=== PATIENT | female | born 1965 | race Caucasian/White ===

== ENCOUNTER 2016-09-08 11:19 | Inpatient (IN) | payer OTHER ==
[2016-09-08] VITALS (8 sets, daily range): BP systolic 166–197; BP diastolic 62–91; PULSE 56–90; RESP 16–22; TEMP 97.5–98.5; O2SAT 94–100
[~2016-09-08 11:19] MED LIST: GABA800T PO; MORP1TAB25 PO; [UNRECOGNIZED DRUG - REMARK]; blood pressure med PO
[2016-09-08] MEDS ORDERED: METO50TA PO (11:46)
[2016-09-08] MEDS ORDERED: PROM25TA5 PO (11:46)
[2016-09-08] MEDS ORDERED: SODIUM CHLOR 0.9% 1000 ML INJ 1,000 ML IV SCH (11:46)
[2016-09-08] MEDS ORDERED: AMLO10 PO (11:46)
[2016-09-08] MEDS ORDERED: MORP1TAB25 PO (11:46)
[2016-09-08] MEDS ORDERED: CLON0.1T PO (11:46)
[2016-09-08] MEDS ORDERED: ALPR0.25 PO (11:46)
--- NOTE | 2016-09-08 11:54 | PD ---
HPI Chief Complaint: Pain: Acute or Chronic Time Seen by Provider: 11:40 Travel History International Travel<30 days: No Contact w/Intl Traveler<30days: No Traveled to known affect area: No History of Present Illness HPI This is a 51-year-old female with history of known prostatic cervical cancer with bilateral nephrostomy tubes, colostomy in place, oncologist is Dr. Santoyo in [place], who presents via EMS for evaluation of 3 days she's been having decreased urine output from her right nephrostomy tube. The urine output from the right nephrostomy tube is looked cloudy. She reports that she was diagnosed with a urinary tract infection 3 days ago by her oncologist and started on an unknown antibiotic. Since then she has had persistent decreased output from the right nephrostomy tube, right flank pain, fevers as high as 103 , nausea, occasional vomiting. Symptoms have worsened which prompted evaluation today. She does also endorse a electric-type sensation in both of her legs. She denies any upper respiratory symptoms, chest pain or shortness of breath. She has no other complaints. PFSH Past Medical History Blood Disorders: No Heart Rhythm Problems: No Cancer: Yes (CERVICAL) Cardiovascular Problems: Yes (htn on meds) High Cholesterol: No Chemotherapy: Yes (7 weeks ago (stated 07/24/16)) Chest Pain: No Congestive Heart Failure: No Diminished Hearing: No Endocrine: No Gastrointestinal Disorders: No Genitourinary: No Hypertension: Yes (takes no meds) Immune Disorder: No Implanted Vascular Access Dvce: No Musculoskeletal: No Neurologic: No Psychiatric: No Reproductive: Yes (PID) Respiratory: No Immunizations Current: No Radiation Therapy: Yes ("1 year ago" (stated 07/24/16)) Tetanus Vaccination: Unknown ?: Not Past Surgical History Abdominal Surgery: Yes (COLOSTOMY) Appendectomy: Yes Section: Yes Genitourinary Surgery: Yes (NEPHROSTOMY) Gynecologic Surgery: Yes (cervcial sleeve, c section) Other Surgery: Yes Social History Alcohol Use: No (DENIES) Tobacco Use: Yes (states 2 cigarettes daily) Substance Use: No Allergies-Medications (Allergen,Severity, Reaction): Coded Allergies: No Known Allergies (Verified , 09/08/16) Reported Meds & Prescriptions Reported Meds & Active Scripts Active Reported Norvasc (Amlodipine Besylate) 10 Mg Tab 10 Mg PO DAILY Morphine ER (Morphine Sulfate) 30 Mg Tab 30 Mg PO Q4HR Phenergan (Promethazine HCl) 25 Mg Tab 25 Mg PO Q6H PRN Alprazolam 0.25 Mg Tab 0.25 Mg PO Q4H PRN Clonidine (Clonidine HCl) 0.1 Mg Tab 0.1 Mg PO BID Metoprolol Tartrate 50 Mg Tab 50 Mg PO BID Review of Systems Except as stated in HPI: all other systems reviewed are Neg Physical Exam Narrative GENERAL: This is a well-developed well-nourished female who appears uncomfortable. Her vital signs are stable. SKIN: Warm and dry. HEAD: Atraumatic. Normocephalic. EYES: Pupils equal and round. No scleral icterus. No injection or drainage. ENT: No nasal bleeding or discharge. Mucous membranes pink and moist. NECK: Trachea midline. No JVD. CARDIOVASCULAR: Regular rate and rhythm. No murmur appreciated. RESPIRATORY: No accessory muscle use. Clear to auscultation. Breath sounds equal bilaterally. GASTROINTESTINAL: Abdomen soft, non-tender, nondistended. Hepatic and splenic margins not palpable. MUSCULOSKELETAL: No obvious deformities. Right CVA tenderness is present. There is mild lower abdominal tenderness to palpation. Bilateral nephrostomy tubes, colostomy in place. Right nephrostomy output is decreased in comparison to left. NEUROLOGICAL: Awake and alert. No obvious cranial nerve deficits. Motor grossly within normal limits. Normal speech. Data Data Last Documented VS Vital Signs Date Time Temp Pulse Resp B/P Pulse Ox O2 Delivery O2 Flow Rate FiO2 09/08/16 14:00 72 18 170/62 95 Room Air 09/08/16 11:35 98.5 Orders Complete Blood Count With Diff (09/08/16 11:46) Comprehensive Metabolic Panel (09/08/16 11:46) Prothrombin Time / Inr (Pt) (09/08/16 11:46) Act Partial Throm Time (Ptt) (09/08/16 11:46) Lactic Acid Sepsis Protocol (09/08/16 11:46) Lipase (09/08/16 11:46) Urinalysis - C+S If Indicated (09/08/16 11:46) Blood Culture (09/08/16 11:46) Iv Access Insert/Monitor (09/08/16 11:46) Sodium Chlor 0.9% 1000 Ml Inj (Ns 1000 M (09/08/16 11:46) Metoclopramide Inj (Reglan Inj) (09/08/16 12:00) Ct Abd/Pel W Iv Contrast(Rout) (09/08/16 11:54) Hydromorphone Pf Inj (Dilaudid Pf Inj) (09/08/16 12:15) Promethazine Inj (Phenergan Inj) (09/08/16 12:15) Creatine Kinase (Cpk) (09/08/16 12:16) Urine Culture (09/08/16 12:35) Cefepime Inj (Maxipime Inj) (09/08/16 12:57) Iohexol 350 Inj (Omnipaque 350 Inj) (09/08/16 14:10) Labs Laboratory Tests Test 09/08/16 09/08/16 12:07 12:35 White Blood Count 8.2 TH/MM3 Red Blood Count 3.31 MIL/MM3 Hemoglobin 9.5 GM/DL Hematocrit 27.9 % Mean Corpuscular Volume 84.3 FL Mean Corpuscular Hemoglobin 28.7 PG Mean Corpuscular Hemoglobin 34.0 % Concent Red Cell Distribution Width 15.4 % Platelet Count 346 TH/MM3 Mean Platelet Volume 5.9 FL Neutrophils (%) (Auto) 83.4 % Lymphocytes (%) (Auto) 8.4 % Monocytes (%) (Auto) 7.6 % Eosinophils (%) (Auto) 0.3 % Basophils (%) (Auto) 0.3 % Neutrophils # (Auto) 6.8 TH/MM3 Lymphocytes # (Auto) 0.7 TH/MM3 Monocytes # (Auto) 0.6 TH/MM3 Eosinophils # (Auto) 0.0 TH/MM3 Basophils # (Auto) 0.0 TH/MM3 CBC Comment AUTO DIFF Differential Total Cells 100 Counted Neutrophils % (Manual) 89 % Band Neutrophils % 4 % Lymphocytes % 2 % Monocytes % 5 % Neutrophils # (Manual) 7.6 TH/MM3 Differential Comment FINAL DIFF MANUAL Platelet Estimate NORMAL Platelet Morphology Comment NORMAL Prothrombin Time 12.3 SEC Prothromb Time International 1.1 RATIO Ratio Activated Partial 25.5 SEC Thromboplast Time Sodium Level 138 MEQ/L Potassium Level 3.3 MEQ/L Chloride Level 105 MEQ/L Carbon Dioxide Level 24.3 MEQ/L Anion Gap 9 MEQ/L Blood Urea Nitrogen 17 MG/DL Creatinine 1.09 MG/DL Estimat Glomerular Filtration 53 ML/MIN Rate Random Glucose 97 MG/DL Lactic Acid Level 1.4 mmol/L Calcium Level 9.5 MG/DL Total Bilirubin 0.3 MG/DL Aspartate Amino Transf 9 U/L (AST/SGOT) Alanine Aminotransferase 7 U/L (ALT/SGPT) Alkaline Phosphatase 207 U/L Total Creatine Kinase 20 U/L Total Protein 8.0 GM/DL Albumin 2.4 GM/DL Lipase 33 U/L Urine Color YELLOW Urine Turbidity CLEAR Urine pH 6.0 Urine Specific [place] 1.012 Urine Protein 30 mg/dL Urine Glucose (UA) NEG mg/dL Urine Ketones NEG mg/dL Urine Occult Blood MOD Urine Nitrite POS Urine Bilirubin NEG Urine Urobilinogen LESS THAN 2.0 MG/DL Urine Leukocyte Esterase LARGE Urine RBC 25 /hpf Urine WBC 28 /hpf Urine WBC Clumps RARE Urine Bacteria RARE /hpf Urine Yeast (Budding) RARE Microscopic Urinalysis Comment CATH-CULTURE IND MDM Medical Decision Making Medical Screen Exam Complete: Yes Emergency Medical Condition: Yes Medical Record Reviewed: Yes Interpretation(s) CBC WBC 8.2, 89% neutrophils CMP creatinine 1.09, potassium 3.3 Urinalysis positive nitrites, moderate blood, 28 wbc's, bacteria, culture pending CT abdomen and pelvis CONCLUSION: 1. Bilateral nephrostomy tubes present. 2. Colostomy is seen in the right upper quadrant. 3. Remarkably distorted pelvic tissues. Differential Diagnosis Pyelonephritis, occluding nephrostomy tube, kidney stone, hydronephrosis, metastasis, sepsis, colitis Narrative Course 51-year-old female with metastatic ovarian cancer, bilateral nephrostomy tubes, colostomy, presents with 3 days of right flank pain, fevers, chills, nausea and vomiting. On examination she appears uncomfortable, right-sided CVA tenderness , decreased output from right nephrostomy tube which is cloudy yellow in color. Her vital signs are stable. IV established, the patient was given a bolus of IV fluids, basic lab work, CT of the abdomen and pelvis have been ordered. I discussed with my attending who agrees to plan of care. 1515: I discussed the case with DRAGAN Cedeno operations lieutenant for Dr. Santoyo ([phone]) he reports that the patient was started on Levaquin 3 days ago. They now have culture and sensitivity results for the urinalysis from 3 days agothe culture grew out Klebsiella sensitive to Augmentin, cefepime, ceftriaxone, Levaquin, Unasyn, ciprofloxacin, gentamicin, Zosyn, tobramycin, Bactrim. She also notes that the patient's nephrostomy tubes were placed in July during the hospitalization in [place]. She has not followed up with a web content writer since then and Dr. Santoyo has been attempting to refer her to web content writer here in [facility] to help manage her nephrostomy tubes but she has not yet been referred. The patient was given an IV dose of cefepime. She will be admitted for pyelonephritis failed outpatient therapy. Discussed with the resident group who is agreeable with admission to Dr. Herzog Diagnosis Primary Impression: Pyelonephritis Additional Impression: Cervical cancer Qualified Code: C53.9 - Malignant neoplasm of cervix, unspecified site Admitting Information Admitting Physician Requests: Admit Jay Louis Sep 08, 2016 11:54
[2016-09-08] MEDS ORDERED: METOCLOPRAMIDE HCL 10 MG/2 ML VIAL IV PUSH ONE (12:00)
[2016-09-08] MEDS ORDERED: PROMETHAZINE INJ 25 MG/ML VIAL IM ONE (12:15)
[2016-09-08] MEDS ORDERED: HYDROmorphone HCL PF 1 MG/ML VIAL IV PUSH ONE (12:15)
[2016-09-08 12:32] LABS: AUTOMATED NEUTROPHIL # 6.8 TH/MM3 (1.8-7.7); BASOPHIL % 0.3 % (0.0-2.0); EOSINOPHIL % 0.3 % (0.0-4.0); HEMATOCRIT 27.9 % (35.0-46.0); LYMPH % 8.4 % (9.0-44.0); LYMPHOCYTE # 0.7 TH/MM3 (1.0-4.8); MEAN CELL VOLUME 84.3 FL (80.0-100.0); MEAN CORPUSCULAR HEMOGLOBIN 28.7 PG (27.0-34.0); MONO % 7.6 % (0.0-8.0); NEUT % 83.4 % (16.0-70.0); PLATELET COUNT 346 TH/MM3 (150-450); RED BLOOD COUNT 3.31 MIL/MM3 (4.00-5.30); RED CELL DISTRIBUTION WIDTH 15.4 % (11.6-17.2); WHITE BLOOD COUNT 8.2 TH/MM3 (4.0-11.0)
[2016-09-08 12:33] LABS: HEMO FLAGS AUTO DIFF
[2016-09-08 12:41] LABS: APTT (PATIENT) 25.5 SEC (24.3-30.1); INTERNATIONAL NORMALIZED RATIO 1.1 RATIO; PROTHROMBIN TIME - PATIENT 12.3 SEC (9.8-11.6)
[2016-09-08 12:51] LABS: BACTERIA, URINE RARE /hpf; BLOOD, URINE MOD (NEG); GLUCOSE,URINE NEG (NEG); KETONE, URINE NEG (NEG); NITRITE,URINE POS (NEG); URINE COLOR YELLOW (YELLW/STRAW)
[2016-09-08 12:51] LABS: ANION GAP 9 MEQ/L (5-15); AST (GOT) 9 U/L (15-37); BICARBONATE 24.3 MEQ/L (21.0-32.0); BLOOD UREA NITROGEN 17 MG/DL (7-18); CHLORIDE 105 MEQ/L (98-107); POTASSIUM 3.3 MEQ/L (3.5-5.1); SODIUM (NA) 138 MEQ/L (136-145)
[2016-09-08 12:52] LABS: COMMENT (UR) CATH-CULTURE IND; CULTURE IF INDICATED CATH CULTURE IND
[2016-09-08] MEDS ORDERED: CEFEPIME INJ 2,000 MG in SODIUM CHLORIDE 0.9% INJ 100 ML IV STA (12:57)
[2016-09-08 12:58] LABS: ALKALINE PHOSPHATASE 207 U/L (45-117); ALT (GPT) 7 U/L (10-53); GLOMERULAR FILTRATION RATE 53 ML/MIN (>89); TOTAL BILIRUBIN ADULT 0.3 MG/DL (0.2-1.0)
[2016-09-08 13:09] LABS: BANDS 4 % (0-6); NEUTROPHIL # MANUAL DIFF 7.6 TH/MM3 (1.8-7.7); PLATELET ESTIMATE SMEAR NORMAL (NORMAL); PLATELET MORPHOLOGY NORMAL (NORMAL); POLYS (SEG NEUTROPHILS) 89 % (16-70); SCAN/DIFF FINAL DIFF MANUAL; WBC DIFF SAMPLE 100
[2016-09-08] MEDS ORDERED: IOHEXOL 350 MG/ML 10 ML VIAL (for RAD DIAG) IV ONE (14:10)
--- NOTE | 2016-09-08 14:47 | RADRPT ---
EXAM DATE/TIME: 09/08/2016 14:07 [facility] COMPARISON: CT ABDOMEN & PELVIS W CONTRAST, July 19, 2016, 12:16. INDICATIONS: Right flank pain. IV CONTRAST: 80 cc Omnipaque 350 (iohexol) IV ORAL CONTRAST: No oral contrast ingested. RADIATION DOSE: 4.52 CTDIvol (mGy) MEDICAL HISTORY: Hypertension. Cardiovascular disease Diabetes mellitus type 2.lung cancer SURGICAL HISTORY: Appendectomy. Cholecystectomy .nephrostomy tube ENCOUNTER: Initial ACUITY: 1 day PAIN SCALE: 5/10 LOCATION: Right flank TECHNIQUE: Volumetric scanning of the abdomen and pelvis was performed. Using automated exposure control and ad justment of the mA and/or kV according to patient size, radiation dose was kept as low as reasonably achievable to obtain optimal diagnostic quality images. FINDINGS: Lung bases are clear. Liver, spleen, pancreas, and adrenals unremarkable. Bilateral subcutaneous nephrostomy tubes are noted. Trace ascites is present in the pelvis. Tissue planes in the pelvis are obscured. Etiology is not ap parent on this exam. CONCLUSION: 1. Bilateral nephrostomy tubes present. 2. Colostomy is seen in the right upper quadrant. 3. Remarkably distorted pelvic tissues. Loenardo Chang MD FACR on September 08, 2016 at 14:17 Board Certified Radiologist. This report was verified electronically.
--- NOTE | 2016-09-08 15:31 | HHI.HP ---
HPI Service Family Medicine Primary Care Physician No Primary Care Physician Admission Diagnosis Diagnoses: Chief Complaint: fever International Travel<30 Days: No Contact w/Intl Traveler<30days: No Known Affected Area: No History of Present Illness 51-year-old female with history of cervical cancer, bilateral nephrostomy tubes, colostomy presents for fever and abdominal pain. She was seen by her oncologist, Dr. Santoyo in [place], and given Levaquin for possible UTI. Since then her abdominal pain has worsened. She states the pain is mainly on her right flank has had fevers up to 103 at home. Endorses nausea, occasional vomiting, some weight loss. Also notes that she has had decreased urinary output from the right nephrostomy tube. She does not have a PCP. Poor historian due to anxiety during the encounter. (Evangelista Ybarra MD R1) Review of Systems ROS Limitations: Other (anxious) Constitutional: COMPLAINS OF: Fever, Weight loss, Chills, Night Sweats Endocrine: COMPLAINS OF: Heat/cold intolerance Eyes: DENIES: Eye pain, Vision loss Ears, nose, mouth, throat: DENIES: Hearing loss, Vertigo Respiratory: DENIES: Cough, Shortness of breath Cardiovascular: DENIES: Chest pain, Palpitations, Lower Extremity Edema Gastrointestinal: COMPLAINS OF: Abdominal pain, Constipation, Nausea, DENIES: Diarrhea, Vomiting Genitourinary: DENIES: Abnormal vaginal bleeding Musculoskeletal: DENIES: Joint pain, Muscle aches Integumentary: DENIES: Abnormal pigmentation, Rash Hematologic/lymphatic: DENIES: Bruising, Lymphadenopathy Immunologic/allergic: DENIES: Eczema, Urticaria Neurologic: DENIES: Abnormal gait, Headache, Localized weakness Psychiatric: COMPLAINS OF: Anxiety, Mood changes, DENIES: Confusion (Evangelista Ybarra MD R1) Past Family Social History Past Medical History Anxiety Cervical cancer Past Surgical History Nephrostomy Colostomy Appendectomy Reported Medications Reported Meds & Active Scripts Active Reported Norvasc (Amlodipine Besylate) 10 Mg Tab 10 Mg PO DAILY Morphine ER (Morphine Sulfate) 30 Mg Tab 30 Mg PO Q4HR Phenergan (Promethazine HCl) 25 Mg Tab 25 Mg PO Q6H PRN Alprazolam 0.25 Mg Tab 0.25 Mg PO Q4H PRN Clonidine (Clonidine HCl) 0.1 Mg Tab 0.1 Mg PO BID Metoprolol Tartrate 50 Mg Tab 50 Mg PO BID (Evangelista Ybarra MD R1) Allergies: Coded Allergies: No Known Allergies (Verified , 09/08/16) Active Ordered Medications Active Medications Hydromorphone HCl (Dilaudid Pf Inj) 0.5 mg ONCE ONCE IV PUSH Last administered on 09/08/16 12:24; Admin Dose 0.5 MG; Start 09/08/16 at 12:15; Stop 09/08/16 at 12 :16; Status DC Iohexol (Omnipaque 350 Inj) 80 ml STK-MED ONCE IV Last administered on 09/08/16 14:10; Admin Dose 80 ML; Start 09/08/16 at 14:10; Stop 09/08/16 at 14:11; Status DC Metoclopramide HCl (Reglan Inj) 10 mg ONCE ONCE IV PUSH; Start 09/08/16 at 12:00 ; Stop 09/08/16 at 12:05; Status DC Promethazine HCl (Phenergan Inj) 12.5 mg ONCE ONCE IM Last administered on 12:24; Admin Dose 12.5 MG; Start 09/08/16 at 12:15; Stop 09/08/16 at 12:16; Status DC Sodium Chloride (NS 1000 ml Inj) 1,000 ml @ 1,000 mls/hr Q1H IV Last administered on 09/08/16 12:23; Admin Dose 1,000 MLS/HR; Start 09/08/16 at 11:46 ; Stop 09/08/16 at 12:45; Status DC Family History Negatory. Social History Denies alcohol use Occasional cigarette use Denies illicit drug use (Evangelista Ybarra MD R1) Physical Exam Vital Signs Vital Signs Date Time Temp Pulse Resp B/P Pulse Ox O2 Delivery O2 Flow Rate FiO2 09/08/16 14:00 72 18 170/62 95 Room Air 09/08/16 12:21 66 20 192/83 97 Room Air 09/08/16 11:35 98.5 69 22 186/83 100 Physical Exam GENERAL: This is a well-nourished, well-developed patient, in some distress. Unable to sit still. SKIN: No rashes, ecchymoses or lesions. Cool and dry. HEAD: Atraumatic. Normocephalic. No temporal or scalp tenderness. EYES: Pupils equal round and reactive. Extraocular motions intact. No scleral icterus. No injection or drainage. ENT: Nose without bleeding, purulent drainage or septal hematoma. Throat without erythema, tonsillar hypertrophy or exudate. Uvula midline. Airway patent. NECK: Trachea midline. No JVD or lymphadenopathy. Supple, nontender. CARDIOVASCULAR: Regular rate and rhythm without murmurs, gallops, or rubs. RESPIRATORY: Clear to auscultation. Breath sounds equal bilaterally. No wheezes , rales, or rhonchi. GASTROINTESTINAL: Abdomen soft, diffusely tender to palpation. nondistended. No hepato-splenomegaly, or palpable masses. Colostomy in place with formed stool. MUSCULOSKELETAL: Extremities without clubbing, cyanosis, or edema. No joint tenderness, effusion, or edema noted. No calf tenderness. NEUROLOGICAL: Awake and alert. Cranial nerves II through XII intact. Motor and sensory grossly within normal limits. Five out of 5 muscle strength in all muscle groups. Normal speech. BACK: Bilateral nephrostomy tubes in place, bilateral CVAT PSYCH: Anxious and rapid speech during exam. Laboratory Laboratory Tests Test 09/08/16 09/08/16 12:07 12:35 White Blood Count 8.2 Red Blood Count 3.31 Hemoglobin 9.5 Hematocrit 27.9 Mean Corpuscular Volume 84.3 Mean Corpuscular Hemoglobin 28.7 Mean Corpuscular Hemoglobin 34.0 Concent Red Cell Distribution Width 15.4 Platelet Count 346 Mean Platelet Volume 5.9 Neutrophils (%) (Auto) 83.4 Lymphocytes (%) (Auto) 8.4 Monocytes (%) (Auto) 7.6 Eosinophils (%) (Auto) 0.3 Basophils (%) (Auto) 0.3 Neutrophils # (Auto) 6.8 Lymphocytes # (Auto) 0.7 Monocytes # (Auto) 0.6 Eosinophils # (Auto) 0.0 Basophils # (Auto) 0.0 CBC Comment AUTO DIFF Differential Total Cells 100 Counted Neutrophils % (Manual) 89 Band Neutrophils % 4 Lymphocytes % 2 Monocytes % 5 Neutrophils # (Manual) 7.6 Differential Comment FINAL DIFF MANUAL Platelet Estimate NORMAL Platelet Morphology Comment NORMAL Prothrombin Time 12.3 Prothromb Time International 1.1 Ratio Activated Partial 25.5 Thromboplast Time Sodium Level 138 Potassium Level 3.3 Chloride Level 105 Carbon Dioxide Level 24.3 Anion Gap 9 Blood Urea Nitrogen 17 Creatinine 1.09 Estimat Glomerular Filtration 53 Rate Random Glucose 97 Lactic Acid Level 1.4 Calcium Level 9.5 Total Bilirubin 0.3 Aspartate Amino Transf 9 (AST/SGOT) Alanine Aminotransferase 7 (ALT/SGPT) Alkaline Phosphatase 207 Total Creatine Kinase 20 Total Protein 8.0 Albumin 2.4 Lipase 33 Urine Color YELLOW Urine Turbidity CLEAR Urine pH 6.0 Urine Specific [place] 1.012 Urine Protein 30 Urine Glucose (UA) NEG Urine Ketones NEG Urine Occult Blood MOD Urine Nitrite POS Urine Bilirubin NEG Urine Urobilinogen LESS THAN 2.0 Urine Leukocyte Esterase LARGE Urine RBC 25 Urine WBC 28 Urine WBC Clumps RARE Urine Bacteria RARE Urine Yeast (Budding) RARE Microscopic Urinalysis Comment CATH-CULTURE IND Date/Time Procedure Status Source Growth 09/08/16 12:35 Urine Culture Received Urine Catheterized Urine Pending 09/08/16 12:07 Aerobic Blood Culture Received Blood Peripheral Pending 09/08/16 12:07 Anaerobic Blood Culture Received Blood Peripheral Pending (Evangelista Ybarra MD R1) Result Diagram: 09/08/16 1207 09/08/16 1207 Septic Shock Reassessment Heart: Regular rate and rhythm Lungs: Clear Skin: Warm, Dry Peripheral Pulses: Bounding Right Radial Bounding Left Radial Bounding Right Popliteal Bounding Left Popliteal Bounding Right Dorsalis Pedis Bounding Left Dorsalis Pedis Bounding Right Posterior Tibial Bounding Left Posterior Tibial Capillary Refill: Brisk (Evangelista Ybarra MD R1) Assessment and Plan Assessment and Plan 51 y/o female with history of cervical cancer, bilateral nephrostomy tubes, colostomy presents with fever and abdominal pain. Will admit for pyelonephritis treatment. Code Status Full Discussed Condition With Dr. Eric (Evangelista Ybarra MD R1) Attending Attestation THIS CASE WAS DISCUSSED WITH THE RESIDENT PHYSICIANS. I HAVE REVIEWED THE RECORD AND AGREE WITH THE ABOVE NOTE AND PLAN OF CARE WAS DISCUSSED. I HAVE AUTHORIZED THE ORDER FOR ADMISSION TO AN IN-PATIENT STATUS. (Beto Herzog MD) Problem List: (1) Pyelonephritis Status: Acute Plan: Bilateral nephrostomy tubes placed in July. History of metastatic ovarian cancer. Failed outpatient treatment of Levaquin. CT abdomen/pelvis: No acute disease. Vital signs stable. WBC 8.2, 89% neutrophils. Lactic acid 1.4 BUN 17, creatinine 1.09 UA: Large leukocyte esterase, positive for nitrates, 28 WBCs, rare bacteria Plan -Continue cefepime (2/3- ), adjusted for renal function -Consult nephrology-appreciate recs -Consult urology, patient known to Dr. Alexander; appreciate recs -Normal saline at 100 ml/hr -Blood culture pending -Urine culture pending -Pain control with Tylenol, [place] -Phenergan PRN nausea (2) HTN (hypertension) Status: Acute Plan: BP 186/83 on admission. Patient anxious on exam -Continue home meds -Amlodipine 10mg daily -Clonidine 0.1mg BID -Metoprolol 50mg BID -Monitor vitals (3) Cervical cancer Status: Chronic Plan: History of cervical cancer. Oncologist is Dr. Santoyo in [place] Plan discussed with PA telephone answerer for him by ED provider (4) FEN Status: Acute Plan: Fluids: NS @ 100mls/hr Electrolytes: K 3.3, given 40meq KCl Nutrition: regular diet DVT ppx: Heparin 5,000 units SQ q8H (Evangelista Ybarra MD R1) Physician Certification 2 Midnight Certification Type: Admission for Inpatient Services Order for Inpatient Services The services are ordered in accordance with Medicare regulations or non- Medicare payer requirements, as applicable. In the case of services not specified as inpatient-only, they are appropriately provided as inpatient services in accordance with the 2-midnight benchmark. Estimated LOS (days): 3 days is the estimated time the patient will need to remain in the hospital, assuming treatment plan goals are met and no additional complications. Post-Hospital Plan: Home (Evangelista Ybarra MD R1) Problem Qualifiers (1) HTN (hypertension): Qualified Code: I15.0 - Renovascular hypertension (2) Cervical cancer: Qualified Code: C53.9 - Malignant neoplasm of cervix, unspecified site Evangelista Ybarra MD R1 Sep 08, 2016 15:31 Bteo Herzog MD Sep 09, 2016 12:50
[2016-09-08] MEDS ORDERED: SODIUM CHLOR 0.9% 1000 ML INJ 1,000 ML SCH (15:36)
[2016-09-08] MEDS ORDERED: SODIUM CHLORIDE 0.9% FLUSH 5 ML FLUSH IVF PRN (15:45)
[2016-09-08] MEDS ORDERED: ACETAMINOPHEN 325 MG TAB PO PRN (15:45)
[2016-09-08] MEDS ORDERED: NALOXONE HCL 0.4 MG/ML AMP IV PRN (15:45)
[2016-09-08] MEDS ORDERED: ACETAMINOPHEN/HYDROcodone 325 MG/5 MG TAB PO PRN (15:45)
[2016-09-08] MEDS ORDERED: ALPRAZolam 0.25 MG TAB PO PRN (15:45)
[2016-09-08] MEDS: HEPARIN SODIUM - SQ 10,000 UNITS/ML VIAL SQ SCH ×2 (16:00→23:02)
[2016-09-08] MEDS ORDERED: POTASSIUM CHLORIDE 20 MEQ CONTROLLED RELEASE TAB PO ONE (16:15)
[2016-09-08] MEDS: MORPHINE SULFATE 4 MG/ML INJ IV PRN ×2 (16:30→21:53)
[2016-09-08] MEDS ORDERED: LABETALOL HCL 100 MG/20 ML VIAL IV PRN (16:30)
[2016-09-08] MEDS: SODIUM CHLOR 0.9% 1000 ML INJ 1,000 ML IV SCH (16:30)
[2016-09-08] MEDS: ACETAMINOPHEN/HYDROcodone 325 MG/7.5 MG TAB PO PRN ×2 (19:16→23:34)
[2016-09-08] MEDS: ALPRAZolam 0.5 MG TAB PO PRN (19:17)
[2016-09-08] MEDS ORDERED: KETOROLAC TROMETHAMINE 30 MG/ML (IVP) VIAL IVP PRN (20:00)
[2016-09-08] MEDS: SODIUM CHLORIDE 0.9% FLUSH 5 ML FLUSH IVF SCH (21:00)
[2016-09-08] MEDS: ZOLPIDEM TARTRATE 5 MG TAB PO PRN ×2 (21:53→22:29)
[2016-09-08] MEDS: METOPROLOL TARTRATE 50 MG TAB PO SCH ×2 (21:53→22:29)
[2016-09-08] MEDS: PROMETHAZINE HCL 25 MG TAB PO PRN (21:53)
[2016-09-08] MEDS: cloNIDine HCL 0.1 MG TAB PO SCH ×2 (21:53→22:29)
[2016-09-08] MEDS: ONDANSETRON HCL 4 MG/2 ML VIAL IV PUSH PRN (22:20)
[2016-09-09] VITALS (8 sets, daily range): BP systolic 126–182; BP diastolic 62–100; PULSE 63–72; RESP 16–20; TEMP 97.3–99.4; O2SAT 96–100
[2016-09-09] MEDS ORDERED: ENALAPRILAT 1.25 MG/ML VIAL IV PUSH PRN (00:30)
[2016-09-09] MEDS: CEFEPIME INJ 2,000 MG in SODIUM CHLORIDE 0.9% INJ 100 ML IV SCH ×2 (01:16→12:36)
[2016-09-09] MEDS: MORPHINE SULFATE 4 MG/ML INJ IV PRN ×6 (01:16→21:06)
[2016-09-09] MEDS: ALPRAZolam 0.5 MG TAB PO PRN ×2 (03:32→22:27)
[2016-09-09] MEDS: ACETAMINOPHEN/HYDROcodone 325 MG/7.5 MG TAB PO PRN (03:33)
[2016-09-09] MEDS: SODIUM CHLOR 0.9% 1000 ML INJ 1,000 ML IV SCH ×3 (03:33→22:00)
[2016-09-09] MEDS: PROMETHAZINE HCL 25 MG TAB PO PRN (03:34)
[2016-09-09] MEDS: ONDANSETRON HCL 4 MG/2 ML VIAL IV PUSH PRN ×2 (04:31→21:05)
--- NOTE | 2016-09-09 08:33 | HHI.FPPN ---
Subjective Remarks FM Attending Note: Patient seen and examined. S: Chart and all resident physician notes reviewed. In summary this is a 51 year old female who was admitted with an admission diagnosis of Pyelonephritis, Bilateral Nephrostomy Tubes,. This patient has a complex history related to cervical cancer for which she underwent surgical treatment followed by radiation therapy and now is receiving chemotherapy. She has undergone a colostomy due to this problem and also has nephrostomy tubes in place. She presented to the emergency room with fever and abdominal pain. She had been seen earlier in the day by her oncologist in [place] who did start her on Levaquin for a possible UTI. Despite this problem her pain worsened during the day leading to her presentation to the emergency room. This morning the patient is awake and reports that her pain is significantly improved. No further nausea is noted. She was able to sleep once her pain was controlled last night. Objective Vitals Vital Signs Date Time Temp Pulse Resp B/P Pulse Ox O2 Delivery O2 Flow Rate FiO2 09/09/16 05:32 172/83 09/09/16 04:00 97.3 72 16 181/100 98 09/09/16 00:00 97.6 63 18 182/80 98 09/08/16 23:00 97.5 72 20 190/86 100 09/08/16 20:15 98 09/08/16 19:53 59 20 188/89 99 Room Air 09/08/16 19:12 68 18 09/08/16 19:11 68 18 197/91 100 Room Air 09/08/16 18:00 56 16 166/91 94 Room Air 09/08/16 14:00 72 18 170/62 95 Room Air 09/08/16 12:21 66 20 192/83 97 Room Air 09/08/16 11:35 98.5 69 22 186/83 100 I/O 09/08/16 09/08/16 09/08/16 09/09/16 09/09/16 09/09/16 07:00 15:00 23:00 07:00 15:00 23:00 Output Total 450 ml 1400 ml Balance -450 ml -1400 ml Output Urine Total 450 ml Emesis 300 ml Drainage Total 1100 ml # Voids 2 4 Result Diagram: 09/08/16 1207 09/08/16 1207 Other Results Item Value Date Time Lactic Acid Level 1.4 mmol/L 09/08/16 1207 Total Bilirubin 0.3 MG/DL 09/08/16 1207 Aspartate Amino Transf (AST/SGOT) 9 U/L L 09/08/16 1207 Alanine Aminotransferase (ALT/SGPT) 7 U/L L 09/08/16 1207 Alkaline Phosphatase 207 U/L H 09/08/16 1207 Total Creatine Kinase 20 U/L L 09/08/16 1207 Lipase 33 U/L L 09/08/16 1207 Urine Specific [place] 1.012 09/08/16 1235 Urine Occult Blood MOD H 09/08/16 1235 Urine Nitrite POS H 09/08/16 1235 Urine Leukocyte Esterase LARGE H 09/08/16 1235 Urine RBC 25 /hpf H 09/08/16 1235 Urine WBC 28 /hpf H 09/08/16 1235 Urine WBC Clumps RARE H 09/08/16 1235 Prothrombin Time 12.3 SEC H 09/08/16 1207 Prothromb Time International Ratio 1.1 RATIO 09/08/16 1207 Activated Partial Thromboplast Time 25.5 SEC 09/08/16 1207 Imaging Last 48 hours Impressions Abdomen/Pelvis CT 09/08/16 1154 Signed Impressions: Service Date/Time: Thursday, September 08, 2016 14:07 - CONCLUSION: 1. Bilateral nephrostomy tubes present. 2. Colostomy is seen in the right upper quadrant. 3. Remarkably distorted pelvic tissues. Leonardo Chang MD FACR Objective Remarks O. CONSTITUTIONAL/GEN: normally nourished, in NAD. EYES: conjunctiva normal, PERRLA, EOMI. LUNGS: clear A-P, respiratory effort is normal. CARDIOVASCULAR: RR without murmur or gallop. No significant edema. GI/ABD: soft without masses, without organomegaly. Colostomy in place left lower mid abdomen. NEURO: No focal deficits. MUSC: back is normal in appearance. Extremities are normal in appearance. PSYCH/MENTAL STATUS: Alert and oriented x 3. A/P Assessment and Plan 51 y/o female with history of cervical cancer, bilateral nephrostomy tubes, colostomy presents with fever and abdominal pain. Will admit for pyelonephritis treatment. Problem List: (1) Pyelonephritis Status: Acute Plan: Bilateral nephrostomy tubes placed in July. History of metastatic ovarian cancer. Failed outpatient treatment of Levaquin. CT abdomen/pelvis: No acute disease. Vital signs stable. WBC 8.2, 89% neutrophils. Lactic acid 1.4 BUN 17, creatinine 1.09 UA: Large leukocyte esterase, positive for nitrates, 28 WBCs, rare bacteria Plan -Continue cefepime (2/3- ), adjusted for renal function -Consult nephrology-appreciate recs -Consult urology, patient known to Dr. Alexander; appreciate recs -Normal saline at 100 ml/hr -Blood culture pending -Urine culture pending -Pain control with Tylenol, [place] -Phenergan PRN nausea 09/09/16 The patient's acute symptoms have significantly improved. We'll continue IV hydration and IV antibiotics. Urology consultation for evaluation of nephrostomy tubes is pending. (2) HTN (hypertension) Status: Acute Plan: BP 186/83 on admission. Patient anxious on exam -Continue home meds -Amlodipine 10mg daily -Clonidine 0.1mg BID -Metoprolol 50mg BID -Monitor vitals (3) Cervical cancer Status: Chronic Plan: History of cervical cancer. Oncologist is Dr. Santoyo in [place] Plan discussed with PA fiction and nonfiction author for him by ED provider (4) FEN Status: Acute Plan: Fluids: NS @ 100mls/hr Electrolytes: K 3.3, given 40meq KCl Nutrition: regular diet DVT ppx: Heparin 5,000 units SQ q8H Problem Qualifiers (1) HTN (hypertension): Qualified Code: I15.0 - Renovascular hypertension (2) Cervical cancer: Qualified Code: C53.9 - Malignant neoplasm of cervix, unspecified site Beto Herzog MD Sep 09, 2016 08:33
[2016-09-09] MEDS ORDERED: HYDROmorphone HCL 2 MG TAB PO PRN (08:45)
[2016-09-09 09:47] LABS: AUTOMATED NEUTROPHIL # 8.1 TH/MM3 (1.8-7.7); BASOPHIL % 0.4 % (0.0-2.0); EOSINOPHIL % 0.4 % (0.0-4.0); HEMATOCRIT 29.7 % (35.0-46.0); LYMPH % 8.5 % (9.0-44.0); LYMPHOCYTE # 0.8 TH/MM3 (1.0-4.8); MEAN CELL VOLUME 83.5 FL (80.0-100.0); MEAN CORPUSCULAR HEMOGLOBIN 28.7 PG (27.0-34.0); MEAN CORPUSCULAR HGB CONC 34.4 % (32.0-36.0); MONO % 6.6 % (0.0-8.0); NEUT % 84.1 % (16.0-70.0); PLATELET COUNT 389 TH/MM3 (150-450); RED BLOOD COUNT 3.55 MIL/MM3 (4.00-5.30); RED CELL DISTRIBUTION WIDTH 15.9 % (11.6-17.2); WHITE BLOOD COUNT 9.7 TH/MM3 (4.0-11.0)
[2016-09-09 10:02] LABS: HEMO FLAGS AUTO DIFF
[2016-09-09] MEDS: cloNIDine HCL 0.1 MG TAB PO SCH ×2 (10:18→21:05)
[2016-09-09] MEDS: METOPROLOL TARTRATE 50 MG TAB PO SCH ×2 (10:18→21:05)
[2016-09-09] MEDS: HEPARIN SODIUM - SQ 10,000 UNITS/ML VIAL SQ SCH ×2 (10:19→14:56)
[2016-09-09] MEDS: SODIUM CHLORIDE 0.9% FLUSH 5 ML FLUSH IVF SCH ×2 (10:19→21:00)
[2016-09-09 10:27] LABS: BICARBONATE 20.9 MEQ/L (21.0-32.0)
[2016-09-09 10:48] LABS: POTASSIUM 2.9 MEQ/L (3.5-5.1)
[2016-09-09] MEDS ORDERED: POTASSIUM CHLORIDE 10 MEQ CAP PO ONE (11:00)
[2016-09-09 11:39] LABS: SCAN/DIFF AUTO DIFF CONFIRMED
--- NOTE | 2016-09-09 11:50 | PD.CONS ---
HPI Service Urology Consult Requested By Reason for Consult Right flank pain in a patient with bilateral nephrostomy tubes Primary Care Physician No Primary Care Physician Diagnosis: History of Present Illness 51-year-old female with history of metastatic cervical cancer with resultant bilateral ureteral obstruction who had bilateral nephrostomy tubes placed up in [place] in mid July 2016. Patient presents now with right flank and abdominal pain. A CT scan study was performed that demonstrated the presence of bilateral pigtail nephrostomy tubes with hydronephrosis noted on the right side. Since being admitted the patient has not had any drainage from the right nephrostomy tube. Patient reports that there has been a progression of diminished output from the right tube for several days prior to admission. The left tube has been draining well. Patient is being managed by Dr. Santoyo who is a oncologist [place]. She is also status post placement of a diverting colostomy. Patient reports having a fever up to 103F while at home, presently afebrile. White blood cell count 9.7. Review of Systems Constitutional: COMPLAINS OF: Fever, Weight gain, Chills, Night Sweats Respiratory: DENIES: Cough Cardiovascular: DENIES: Chest pain Gastrointestinal: COMPLAINS OF: Abdominal pain (right side) Musculoskeletal: COMPLAINS OF: Back pain (right flank) Neurologic: DENIES: Paresthesias, Seizures Psychiatric: COMPLAINS OF: Anxiety Past Family Social History Past Medical History Metastatic cervical cancer Anxiety Past Surgical History Status post placement of bilateral nephrostomy tubes in mid July 2016 Status post diverting colostomy Status post appendectomy Reported Medications Refer to EMR Allergies: Coded Allergies: No Known Allergies (Verified , 09/08/16) Active Ordered Medications Refer to EMR Family History Reviewed and noncontributory Social History Smoker of 2 cigarettes per day Denies alcohol or intravenous drug abuse Physical Exam Vital Signs Vital Signs Date Time Temp Pulse Resp B/P Pulse Ox O2 Delivery O2 Flow Rate FiO2 09/09/16 08:00 99.4 72 20 174/82 99 09/09/16 05:32 172/83 09/09/16 04:00 97.3 72 16 181/100 98 09/09/16 00:00 97.6 63 18 182/80 98 09/08/16 23:00 97.5 72 20 190/86 100 09/08/16 20:15 98 09/08/16 19:53 59 20 188/89 99 Room Air 09/08/16 19:12 68 18 09/08/16 19:11 68 18 197/91 100 Room Air 09/08/16 18:00 56 16 166/91 94 Room Air 09/08/16 14:00 72 18 170/62 95 Room Air 09/08/16 12:21 66 20 192/83 97 Room Air Physical Exam GENERAL: Lying quietly in bed and in no apparent distress. SKIN: No rashes, ecchymoses or lesions. Cool and dry. HEAD: Atraumatic. Normocephalic. No temporal or scalp tenderness. EYES: Pupils equal round and reactive. Extraocular motions intact. No scleral icterus. No injection or drainage. ENT: Nose without bleeding, purulent drainage or septal hematoma. Throat without erythema, tonsillar hypertrophy or exudate. Uvula midline. Airway patent. NECK: Trachea midline. No JVD or lymphadenopathy. Supple, nontender, no meningeal signs. GASTROINTESTINAL: Abdomen soft, non-tender, nondistended. Colostomy functional. : Left nephrostomy tube in place and draining well. Right nephrostomy in place and without any urine output. Irrigated with normal saline and unable to recover any output. MUSCULOSKELETAL: Extremities without clubbing, cyanosis, or edema. No joint tenderness, effusion, or edema noted. No calf tenderness. Negative Homans sign bilaterally. NEUROLOGICAL: Awake and alert. Cranial nerves II through XII intact. Motor and sensory grossly within normal limits. Five out of 5 muscle strength in all muscle groups. Normal speech. Laboratory Laboratory Tests Test 09/08/16 09/08/16 09/09/16 12:07 12:35 09:09 White Blood Count 8.2 9.7 Red Blood Count 3.31 3.55 Hemoglobin 9.5 10.2 Hematocrit 27.9 29.7 Mean Corpuscular Volume 84.3 83.5 Mean Corpuscular Hemoglobin 28.7 28.7 Mean Corpuscular Hemoglobin 34.0 34.4 Concent Red Cell Distribution Width 15.4 15.9 Platelet Count 346 389 Mean Platelet Volume 5.9 5.7 Neutrophils (%) (Auto) 83.4 84.1 Lymphocytes (%) (Auto) 8.4 8.5 Monocytes (%) (Auto) 7.6 6.6 Eosinophils (%) (Auto) 0.3 0.4 Basophils (%) (Auto) 0.3 0.4 Neutrophils # (Auto) 6.8 8.1 Lymphocytes # (Auto) 0.7 0.8 Monocytes # (Auto) 0.6 0.6 Eosinophils # (Auto) 0.0 0.0 Basophils # (Auto) 0.0 0.0 CBC Comment AUTO DIFF AUTO DIFF Differential Total Cells 100 Counted Neutrophils % (Manual) 89 Band Neutrophils % 4 Lymphocytes % 2 Monocytes % 5 Neutrophils # (Manual) 7.6 Differential Comment FINAL DIFF MANUAL Platelet Estimate NORMAL Platelet Morphology Comment NORMAL Prothrombin Time 12.3 Prothromb Time International 1.1 Ratio Activated Partial 25.5 Thromboplast Time Sodium Level 138 139 Potassium Level 3.3 2.9 Chloride Level 105 104 Carbon Dioxide Level 24.3 20.9 Anion Gap 9 14 Blood Urea Nitrogen 17 18 Creatinine 1.09 0.95 Estimat Glomerular Filtration 53 63 Rate Random Glucose 97 90 Lactic Acid Level 1.4 Calcium Level 9.5 8.6 Total Bilirubin 0.3 Aspartate Amino Transf 9 (AST/SGOT) Alanine Aminotransferase 7 (ALT/SGPT) Alkaline Phosphatase 207 Total Creatine Kinase 20 Total Protein 8.0 Albumin 2.4 Lipase 33 Urine Color YELLOW Urine Turbidity CLEAR Urine pH 6.0 Urine Specific [place] 1.012 Urine Protein 30 Urine Glucose (UA) NEG Urine Ketones NEG Urine Occult Blood MOD Urine Nitrite POS Urine Bilirubin NEG Urine Urobilinogen LESS THAN 2.0 Urine Leukocyte Esterase LARGE Urine RBC 25 Urine WBC 28 Urine WBC Clumps RARE Urine Bacteria RARE Urine Yeast (Budding) RARE Microscopic Urinalysis Comment CATH-CULTURE IND Date/Time Procedure Status Source Growth 09/08/16 12:35 Urine Culture Received Urine Catheterized Urine Pending 09/08/16 12:07 Aerobic Blood Culture - Preliminary Resulted Blood Peripheral NO GROWTH IN 1 DAY 09/08/16 12:07 Anaerobic Blood Culture - Preliminary Resulted Blood Peripheral NO GROWTH IN 1 DAY Result Diagram: 09/09/16 0909 09/09/16 0909 Course Attempted to irrigate right nephrostomy tube without success. Assessment and Plan Assessment and Plan Urologic impression: #1 status post placement of bilateral nephrostomy tubes secondary to bilateral ureteral obstruction as a consequence of her advanced cervical cancer. #2 right nephrostomy tube nonfunctional causing right hydronephrosis #3 right flank pain related to the right hydronephrosis Recommendations: #1 keep patient nothing by mouth #2 interventional radiology consult for replacement of both nephrostomy tubes #3 may resume regular diet if interventional radiology unable to replace the tubes today. James Simms MD Sep 09, 2016 11:50
--- NOTE | 2016-09-09 14:28 | MB ---
cc: RYAN NICOLE MD DATE OF CONSULTATION: 09/09/2016. NOTE: This is a repeat consultation. It appears the previous consultation got cut off on my dictation. REASON FOR CONSULTATION: Pyelonephritis acute renal failure with management. HISTORY OF PRESENT ILLNESS: This is a 48-year-old female with a history of cervical cancer with bilateral nephrostomy tubes as well as colostomy. The patient was treated previously in [place]. The patient saw our oncologist yesterday and complained of abdominal pains and was given Levaquin for possible urinary tract infection. She had worsening symptoms of abdominal pains and fevers with subjective fever to a temperature 103 at home. She came here for further evaluation and was assessed with a possible pyelonephritis and was admitted with the primary team here. A CT scan was done with no acute findings. However, she had noted decreased urine output out of her right-sided nephrostomy tube. The patient was seen with urology and the plan is for replacement of the nephrostomy tubes with interventional radiology at this time. Her creatinine was 1.09 at the time of admission. The patient was started with IV fluids with normal cecum at 100 cc/hour. She has maintained good urine output with 1.1 liters of urine output out of the left-sided nephrostomy tube overnight and her creatinine decreased slightly down to 0.9. At this point, she is resting in bed. She is weak and tired and awaiting nephrostomy tube exchange. Nephrology was consulted for further evaluation. REVIEW OF SYSTEMS: No fevers today. However, subjective fever at home. No chills. The patient has reported nausea and decreased p.o. intake. No diarrhea. No chest pains. No shortness of breath. Has had subjective dizziness. Otherwise, the review of systems is negative. PAST MEDICAL HISTORY: Her past medical history includes: 1. Anxiety. 2. Cervical cancer. PAST SURGICAL HISTORY: 1. Nephrostomy tubes bilaterally in July of 2016 in [place]. 2. Colostomy. 3. Appendectomy. MEDICATIONS AT HOME: 1. Norvasc. 2. Morphine. 3. Phenergan. 4. Xanax. 5. Clonidine. 6. Metoprolol. ALLERGIES: NO KNOWN DRUG ALLERGIES. FAMILY HISTORY: Negative. SOCIAL HISTORY: No alcohol, drug use. Occasional cigarette use. PHYSICAL EXAMINATION: VITAL SIGNS: At the time of evaluation, temperature 99.4, pulse of 72, respiratory rate 20, blood pressure 174/82, pulse oximetry 99% on room air. GENERAL: Awake, anxious, alert and in no apparent distress. HEAD, EYES, EARS, NOSE, THROAT: Neck soft supple. CARDIAC: Regular rate and rhythm. PULMONARY: Lungs clear to auscultation bilaterally. ABDOMEN: The abdomen is soft, nontender and nondistended. Nephrostomy tubes and colostomy tubes in place. EXTREMITIES: No edema. LABORATORY FINDINGS: White count 9.7, hemoglobin 10.2, hematocrit 29.7 with platelet count 389,000. Sodium 139, potassium 2.9, chloride 104, bicarb 20.9, BUN 18, creatinine 0.9, glucose of 90, calcium 8.6. ASSESSMENT AND PLAN: 1. PROBLEM #1: Pyelonephritis. The patient has bilateral nephrostomy tubes with decreased urine output at the right side. CT scan was negative; however, the white count is slightly elevated and the patient has subjective fevers at home. She has been treated with cefepime for presumptive pyelonephritis at this point. The patient was also seen with urology and the plan is for nephrostomy tube change with interventional radiology to be performed today. At this point, her intrinsic renal function appears stable. Her creatinine is 0.9 with fluids overnight with a good urine output from her left kidney due to nephrostomy tubes. The plan is for nephrostomy tube change. Otherwise, renal function and volume status are stable at this point. Continue with IV fluids at this time. 2. PROBLEM #2: Cervical cancer. The patient has a history of radiation therapy as well as chemotherapy. She has a colostomy as well as nephrostomy tube at this point. Continue to follow up with the primary team. 3. PROBLEM 3: Hypertension. The patient is on amlodipine 10 milligrams per day, clonidine 0.1 milligrams twice a day as well as metoprolol 50 milligrams twice a day. Her systolic blood pressure is slightly elevated in the 180s to 170s. Continue to monitor at this point on medications. Should she have good urine output from her nephrostomy tube, this may further assist with her hypertension management. Continue to monitor at this point. If there is improvement in blood pressure tomorrow, may consider to increase metoprolol to 100 milligrams twice a day. 4. Hypokalemia. The patient has a potassium of 2.9. Potassium p.o. replacement was ordered earlier today. Continue to monitor. This is likely secondarily due to p.o. intake. Continue to encourage p.o. intake when tolerated after the nephrostomy tubes are exchanged. 4. Mild acute kidney injury with a creatinine of 1.09 which decreased to 0.9 on IV fluids. Renal function is otherwise stable. Continue with fluids for now. MD JESSICA Cervantes/CARL /1:51 PM /2:16 PM MTDD
[2016-09-09 18:00] LABS: BICARBONATE 20.9 MEQ/L (21.0-32.0); POTASSIUM 3.8 MEQ/L (3.5-5.1)
[2016-09-09] MEDS: ZOLPIDEM TARTRATE 5 MG TAB PO PRN (22:27)
[2016-09-10] VITALS (8 sets, daily range): BP systolic 97–152; BP diastolic 63–75; PULSE 62–81; RESP 16–18; TEMP 96.6–99.1; O2SAT 98–100
[2016-09-10] MEDS: CEFEPIME INJ 2,000 MG in SODIUM CHLORIDE 0.9% INJ 100 ML IV SCH ×2 (02:44→14:58)
[2016-09-10] MEDS: ONDANSETRON HCL 4 MG/2 ML VIAL IV PUSH PRN ×3 (05:04→17:43)
[2016-09-10] MEDS: MORPHINE SULFATE 4 MG/ML INJ IV PRN ×5 (05:05→17:44)
[2016-09-10] MEDS: SODIUM CHLOR 0.9% 1000 ML INJ 1,000 ML IV SCH ×2 (08:00→15:32)
[2016-09-10 08:14] LABS: AUTOMATED NEUTROPHIL # 6.3 TH/MM3 (1.8-7.7); BASOPHIL % 0.4 % (0.0-2.0); EOSINOPHIL # 0.2 TH/MM3 (0-0.4); EOSINOPHIL % 2.8 % (0.0-4.0); LYMPH % 10.7 % (9.0-44.0); LYMPHOCYTE # 0.8 TH/MM3 (1.0-4.8); MEAN CELL VOLUME 83.9 FL (80.0-100.0); MEAN CORPUSCULAR HEMOGLOBIN 28.6 PG (27.0-34.0); MEAN CORPUSCULAR HGB CONC 34.1 % (32.0-36.0); MONO % 6.4 % (0.0-8.0); NEUT % 79.7 % (16.0-70.0); PLATELET COUNT 328 TH/MM3 (150-450); RED BLOOD COUNT 3.22 MIL/MM3 (4.00-5.30); RED CELL DISTRIBUTION WIDTH 15.3 % (11.6-17.2); WHITE BLOOD COUNT 7.9 TH/MM3 (4.0-11.0)
[2016-09-10] MEDS: HEPARIN SODIUM - SQ 10,000 UNITS/ML VIAL SQ SCH ×3 (08:32→15:32)
[2016-09-10 08:33] LABS: BICARBONATE 21.8 MEQ/L (21.0-32.0); POTASSIUM 3.6 MEQ/L (3.5-5.1)
[2016-09-10 08:46] LABS: HEMO FLAGS AUTO DIFF
[2016-09-10] MEDS: cloNIDine HCL 0.1 MG TAB PO SCH ×2 (09:06→21:00)
[2016-09-10] MEDS: ALPRAZolam 0.5 MG TAB PO PRN ×3 (09:06→18:32)
[2016-09-10] MEDS: PROMETHAZINE HCL 25 MG TAB PO PRN ×2 (09:07→14:59)
[2016-09-10] MEDS: METOPROLOL TARTRATE 50 MG TAB PO SCH ×2 (09:07→21:00)
--- NOTE | 2016-09-10 09:08 | HHI.FPPN ---
Subjective Remarks Patient seen and examined this morning. Afebrile since stable. Patient is complaining of pain is about to receive her morning dose of pain medications. She says that the pain is tolerable when she is getting her pain meds. She is to have her nephrostomy tube changed on Sunday09/11/16. She'll be eating a diet and then will be NPO overnight for the procedure. She agrees with this plan of care. Patient admits to feeling nauseous, but denies any vomiting. She admits to having a poor diet. Denies any fevers or chills. (Abdulaziz Eric MD R2) Objective Vitals Vital Signs Date Time Temp Pulse Resp B/P Pulse Ox O2 Delivery O2 Flow Rate FiO2 09/10/16 04:00 99.1 74 18 129/73 99 09/10/16 00:00 98.5 72 17 152/75 99 09/09/16 20:00 99.2 72 18 148/73 96 09/09/16 16:00 98.6 72 18 126/62 100 09/09/16 13:32 99 21 09/09/16 12:00 98.9 66 18 130/70 99 I/O 09/09/16 09/09/16 09/09/16 09/10/16 09/10/16 09/10/16 07:00 15:00 23:00 07:00 15:00 23:00 Intake Total 480 ml 480 ml 480 ml Output Total 1400 ml 350 ml 900 ml 1225 ml Balance -1400 ml 130 ml -420 ml -745 ml Intake Oral 480 ml 480 ml 480 ml Output Urine Total 350 ml 900 ml 600 ml Emesis 300 ml Drainage Total 1100 ml 625 ml # Voids 4 (Abdulaziz Eric MD R2) Result Diagram: 09/10/16 0750 09/10/16 0750 Imaging Last Impressions Abdomen/Pelvis CT 09/08/16 1154 Signed Impressions: Service Date/Time: Thursday, September 08, 2016 14:07 - CONCLUSION: 1. Bilateral nephrostomy tubes present. 2. Colostomy is seen in the right upper quadrant. 3. Remarkably distorted pelvic tissues. Leonardo Chang MD FACR Objective Remarks O. CONSTITUTIONAL/GEN: normally nourished, in NAD. EYES: conjunctiva normal, PERRLA, EOMI. LUNGS: clear A-P, respiratory effort is normal. CARDIOVASCULAR: RR without murmur or gallop. No significant edema. GI/ABD: soft without masses, without organomegaly. Colostomy in place left lower mid abdomen. NEURO: No focal deficits. MUSC: back is normal in appearance. Extremities are normal in appearance. PSYCH/MENTAL STATUS: Alert and oriented x 3. Medications and IVs Current Medications Medications (Trade) Dose Ordered Sig/Lizandro Route Start Time Stop Time Status Last Admin (Tylenol) 650 mg Q6H PRN PO 09/08/16 15:45 ([place] 5-325 Mg) 1 tab Q4H PRN PO 09/08/16 15:45 ([place] 7.5-325 Mg) 1 tab Q4H PRN PO 09/08/16 15:45 09/08/16 23:34 (Morphine Inj) 4 mg Q3H PRN IV 09/08/16 15:45 09/10/16 05:05 (Narcan Inj) 0.4 mg UNSCH PRN IV 09/08/16 15:45 (Norvasc) 10 mg DAILY PO 09/09/16 09:00 09/09/16 10:18 ([place]ap[place]) 0.1 mg BID PO 09/08/16 21:00 09/09/16 21:05 (Lopressor) 50 mg BID PO 09/08/16 21:00 09/09/16 21:05 (NS Flush) 2 ml UNSCH PRN IVF 09/08/16 15:45 (NS Flush) 2 ml BID IVF 09/08/16 21:00 09/09/16 10:19 Promethazine HCl 25 mg 25 mg Q6H PRN PO 09/08/16 15:45 09/09/16 03:34 (NS 1000 ml Inj) 1,000 ml @ 100 mls/hr Q10H IV 09/08/16 16:00 09/09/16 15:52 Heparin Sodium (Porcine) 5000 units 5,000 units Q8H SQ 09/08/16 16:00 (Maxipime Inj/NS Inj) 100 ml @ 100 mls/hr Q12H IV 09/09/16 02:00 09/10/16 02:44 (Trandate Inj) 10 mg Q6H PRN IV 09/08/16 16:30 (Ambien) 5 mg HS PRN PO 09/08/16 16:30 09/09/16 22:27 (Xanax) 0.5 mg Q4H PRN PO 09/08/16 19:00 09/09/16 22:27 (Zofran Inj) 4 mg Q6HR PRN IV PUSH 09/08/16 22:15 09/10/16 05:04 (Vasotec Inj) 1.25 mg Q8H PRN IV PUSH 09/09/16 00:30 09/09/16 00:30 (Dilaudid) 2 mg Q6H PRN PO 09/09/16 08:45 (Flexeril) 10 mg Q8H PRN PO 09/09/16 08:45 (Abdulaziz Eric MD R2) A/P Assessment and Plan 51 y/o female with history of cervical cancer, bilateral nephrostomy tubes, colostomy presents with fever and abdominal pain. Will admit for pyelonephritis treatment. Awaiting colostomy tube replacement Discharge Planning Pending improvement of clinical symptoms, as well as colostomy tube replacement scheduled for Sunday (Abdulaziz Eric MD R2) Attending Attestation Case reviewed and discussed with the resident team. Agree with plan of care as discussed with me and documented in the resident note. (Beto Herzog MD) Problem List: (1) Pyelonephritis Status: Acute Plan: Bilateral nephrostomy tubes placed in July. History of metastatic ovarian cancer. Failed outpatient treatment of Levaquin. CT abdomen/pelvis: No acute disease. Vital signs stable. Plan -Continue cefepime (2/3- ), adjusted for renal function -Consult nephrology-appreciate recs -Consult urology, patient known to Dr. Alexander; appreciate recs -Per recommendations awaiting nephrostomy tube change by IR scheduled for 09/11/16 -Normal saline at 100 ml/hr -Blood culture: No growth to date 1 -Urine culture: Group D enterococcus -Pain control with Tylenol, [place], morphine -Phenergan PRN nausea (2) HTN (hypertension) Status: Acute Plan: -Continue home meds -Amlodipine 10mg daily -Clonidine 0.1mg BID -Metoprolol 50mg BID -Monitor vitals (3) Cervical cancer Status: Chronic Plan: History of cervical cancer. Oncologist is Dr. Santoyo in [place] Monitor at this time (4) FEN Status: Acute Plan: Out of bed ad meghan. Fluids: NS @ 100mls/hr Monitor electrolytes replace accordingly Nutrition: regular diet DVT ppx: Heparin 5,000 units SQ q8H CODE STATUS: Full code (Abdulaziz Eric MD R2) Problem Qualifiers (1) HTN (hypertension): Qualified Code: I15.0 - Renovascular hypertension (2) Cervical cancer: Qualified Code: C53.9 - Malignant neoplasm of cervix, unspecified site Abdulaziz Eric MD R2 Sep 10, 2016 09:08 Beto Herzog MD Sep 11, 2016 11:16
[2016-09-10] MEDS: SODIUM CHLORIDE 0.9% FLUSH 5 ML FLUSH IVF SCH ×2 (09:09→21:00)
--- NOTE | 2016-09-10 10:33 | HHI.NPPN ---
Subjective Additional Remarks Ongoing fatigue, feels somewhat better today Objective Data Data 09/09/16 09/10/16 19:00 07:00 Intake Total 480 ml 960 ml Output Total 350 ml 2125 ml Balance 130 ml -1165 ml Intake Oral 480 ml 960 ml Output Urine Total 350 ml 1500 ml Drainage Total 625 ml Vital Signs Date Time Temp Pulse Resp B/P Pulse Ox O2 Delivery O2 Flow Rate FiO2 09/10/16 04:00 99.1 74 18 129/73 99 09/10/16 00:00 98.5 72 17 152/75 99 09/09/16 20:00 99.2 72 18 148/73 96 09/09/16 16:00 98.6 72 18 126/62 100 09/09/16 13:32 99 21 09/09/16 12:00 98.9 66 18 130/70 99 -: 09/10/16 0750 09/10/16 0750 Physical Exam General Appearance: Well Developed, No Acute Distress Throat Throat Exam: Oral Mucosa [place] & Moist Neck Neck Exam: Neck Supple Pulmonary Resp Exam: Clear Bilaterally Cardiology CV Exam: Regular, Normal Sinus Rhythm Gastrointestinal/Abdomen GI Exam: Soft, Non-Tender, Bowel Sounds Present Genitourinary Exam: Clear Urine Integumentary Skin Exam: Warm, Dry, Intact Extremeties Extremities Exam: No Edema Neurologic Neuro Exam: Alert, Awake, Oriented Assessment/Plan Problem List: (1) FAISAL (acute kidney injury) Plan: FAISAL due to volueme depletion, possible obstructive component. Creatinine improved to 0.78, increased UOP from right nephrostomy now. At this point renal function has improved. Continue IVFs until tolerating PO intake. Planned nephrostomy change tomorrow. No further renal issues at this point. Continue to follow with Urology and IR, replace electrolytes as needed. Potassium improving Will sign off - please call if questions. (2) Pyelonephritis Plan: continue antibiotics (3) Cervical cancer (4) HTN (hypertension) Plan: Improved Problem Qualifiers (1) Cervical cancer: Qualified Code: C53.9 - Malignant neoplasm of cervix, unspecified site (2) HTN (hypertension): Qualified Code: I15.0 - Renovascular hypertension Reji Issa MD Sep 10, 2016 10:33
[2016-09-10 12:18] LABS: BANDS 6 % (0-6); EOSINOPHILS 1 % (0-4); MYELOCYTES 1 % (0-0); POLYS (SEG NEUTROPHILS) 82 % (16-70); WBC DIFF SAMPLE 100
[2016-09-10 12:19] LABS: PLATELET ESTIMATE SMEAR NORMAL (NORMAL); PLATELET MORPHOLOGY NORMAL (NORMAL); SCAN/DIFF FINAL DIFF MANUAL
--- NOTE | 2016-09-10 14:53 | HHI.PR ---
Subjective Remarks Resting comfortably Reports feeling better today Exchange of bilateral nephrostomy tubes scheduled for tomorrow Objective Vital Signs Vital Signs Date Time Temp Pulse Resp B/P Pulse Ox O2 Delivery O2 Flow Rate FiO2 09/10/16 13:28 99 21 09/10/16 04:00 99.1 74 18 129/73 99 09/10/16 00:00 98.5 72 17 152/75 99 09/09/16 20:00 99.2 72 18 148/73 96 09/09/16 16:00 98.6 72 18 126/62 100 I/O 09/09/16 09/09/16 09/09/16 09/10/16 09/10/16 09/10/16 07:00 15:00 23:00 07:00 15:00 23:00 Intake Total 480 ml 480 ml 480 ml Output Total 1400 ml 350 ml 900 ml 1225 ml Balance -1400 ml 130 ml -420 ml -745 ml Intake Oral 480 ml 480 ml 480 ml Output Urine Total 350 ml 900 ml 600 ml Emesis 300 ml Drainage Total 1100 ml 625 ml # Voids 4 Result Diagram: 09/10/16 0750 09/10/16 0750 Objective Remarks Abdomen soft, nondistended, nontender No CVA tenderness Assessment and Plan Assessment and Plan Urologic impression: #1 status post placement of bilateral nephrostomy tubes secondary to bilateral ureteral obstruction as a consequence of her advanced cervical cancer. #2 right nephrostomy tube nonfunctional causing right hydronephrosis #3 right flank pain related to the right hydronephrosis well managed with medication. Recommendations: #1 keep patient nothing by mouth after midnight #2 interventional radiology to replace both nephrostomy tubes tomorrow James Simms MD Sep 10, 2016 14:53
[2016-09-11] VITALS (10 sets, daily range): BP systolic 95–168; BP diastolic 52–89; PULSE 63–81; RESP 15–19; TEMP 96.8–99.5; O2SAT 97–100
[2016-09-11] MEDS: CEFEPIME INJ 2,000 MG in SODIUM CHLORIDE 0.9% INJ 100 ML IV SCH (03:09)
[2016-09-11] MEDS: SODIUM CHLOR 0.9% 1000 ML INJ 1,000 ML IV SCH ×3 (03:12→22:19)
[2016-09-11] MEDS: HEPARIN SODIUM - SQ 10,000 UNITS/ML VIAL SQ SCH ×4 (08:00→23:52)
[2016-09-11] MEDS: MORPHINE SULFATE 4 MG/ML INJ IV PRN ×4 (08:09→22:15)
[2016-09-11] MEDS: cloNIDine HCL 0.1 MG TAB PO SCH ×2 (08:10→22:00)
[2016-09-11] MEDS: ONDANSETRON HCL 4 MG/2 ML VIAL IV PUSH PRN ×4 (08:10→22:14)
[2016-09-11] MEDS: METOPROLOL TARTRATE 50 MG TAB PO SCH ×2 (08:10→22:00)
[2016-09-11] MEDS: ALPRAZolam 0.5 MG TAB PO PRN ×4 (08:11→23:51)
[2016-09-11] MEDS: SODIUM CHLORIDE 0.9% FLUSH 5 ML FLUSH IVF SCH ×2 (09:00→22:03)
[2016-09-11 09:20] LABS: HEMATOCRIT 29.6 % (35.0-46.0); MEAN CELL VOLUME 85.4 FL (80.0-100.0); PLATELET COUNT 300 TH/MM3 (150-450); RED BLOOD COUNT 3.46 MIL/MM3 (4.00-5.30); RED CELL DISTRIBUTION WIDTH 15.6 % (11.6-17.2); REVIEW FLAG FINAL; WHITE BLOOD COUNT 9.6 TH/MM3 (4.0-11.0)
[2016-09-11] MEDS ORDERED: MIDAZOLAM HCL 5 MG/5 ML VIAL ONE (09:33)
[2016-09-11] MEDS ORDERED: fentaNYL CITRATE 250 MCG/5 ML AMP ONE (09:33)
[2016-09-11 10:00] LABS: BICARBONATE 20.4 MEQ/L (21.0-32.0); POTASSIUM 3.2 MEQ/L (3.5-5.1)
[2016-09-11] MEDS ORDERED: IOHEXOL 350 MG/ML 10 ML VIAL (for RAD DIAG) ONE (11:04)
--- NOTE | 2016-09-11 11:07 | HHI.FPPN ---
Subjective Remarks Patient seen and examined this morning. No acute events overnight. She reports feeling okay this morning, some pain and some nausea but well controlled medications. Denies any fever/chills, chest pain, SOB, leg pain. She is scheduled for IR replacement of her nephrostomy tubes today. (Evangelista Ybarra MD R1) Objective Vitals Vital Signs Date Time Temp Pulse Resp B/P Pulse Ox O2 Delivery O2 Flow Rate FiO2 09/11/16 08:00 99.5 81 16 168/89 100 09/11/16 04:00 98.6 81 18 102/68 100 09/11/16 00:00 96.8 75 19 104/64 100 09/10/16 20:00 97.2 81 18 97/66 100 09/10/16 17:59 99 21 09/10/16 16:00 97.4 73 18 103/63 98 09/10/16 13:28 99 21 09/10/16 12:00 96.6 62 18 110/64 100 I/O 09/10/16 09/10/16 09/10/16 09/11/16 09/11/16 09/11/16 07:00 15:00 23:00 07:00 15:00 23:00 Intake Total 480 ml 960 ml 1440 ml 0 ml Output Total 1225 ml 400 ml 850 ml 850 ml Balance -745 ml 560 ml 590 ml -850 ml Intake Oral 480 ml 960 ml 1440 ml 0 ml Output Urine Total 600 ml 400 ml 850 ml 850 ml Drainage Total 625 ml # Bowel Movements 0 0 (Evangelista Ybarra MD R1) Result Diagram: 09/11/1648 09/11/16 0848 Objective Remarks O. CONSTITUTIONAL/GEN: normally nourished, in NAD. EYES: conjunctiva normal, PERRLA, EOMI. LUNGS: clear A-P, respiratory effort is normal. CARDIOVASCULAR: RR without murmur or gallop. No significant edema. GI/ABD: soft without masses, without organomegaly. Colostomy in place left lower mid abdomen. NEURO: No focal deficits. MUSC: back is normal in appearance. Extremities are normal in appearance. PSYCH/MENTAL STATUS: Alert and oriented x 3. (Evangelista Ybarra MD R1) A/P Assessment and Plan 51 y/o female with history of cervical cancer, bilateral nephrostomy tubes, colostomy presents with fever and abdominal pain. Will admit for pyelonephritis treatment. Awaiting colostomy tube replacement Discharge Planning Pending improvement of clinical symptoms, as well as colostomy tube replacement scheduled for Sunday (Evangelista Ybarra MD R1) Attending Attestation Patient seen and examined. Case reviewed and discussed with the resident team. Agree with plan of care as discussed with me and documented in the resident note. (Beto Herzog MD) Problem List: (1) Pyelonephritis Status: Acute Plan: Bilateral nephrostomy tubes placed in July. History of metastatic ovarian cancer. Failed outpatient treatment of Levaquin. CT abdomen/pelvis: No acute disease. Vital signs stable. Plan -Continue cefepime (2/- ), adjusted for renal function -Consult urology, patient known to Dr. Alexander; appreciate recs -Per recommendations awaiting nephrostomy tube change by IR scheduled for 09/11/16 -Normal saline at 100 ml/hr -Blood culture: NGTD -Urine culture: Group D enterococcus, will change to amoxicillin 500 mg 3 times a day after nephrostomy tube replacement -Pain control with Tylenol, [employer], morphine -Phenergan PRN nausea (2) HTN (hypertension) Status: Acute Plan: -Continue home meds -Amlodipine 10mg daily -Clonidine 0.1mg BID -Metoprolol 50mg BID -Monitor vitals (3) Cervical cancer Status: Chronic Plan: History of cervical cancer. Oncologist is Dr. Santoyo in [place] Monitor at this time (4) FEN Status: Acute Plan: Out of bed ad meghan. Fluids: NS @ 100mls/hr Monitor electrolytes replace accordingly Nutrition: Nothing by mouth for surgery DVT ppx: Heparin 5,000 units SQ q8H CODE STATUS: Full code (Evangelista Ybarra MD R1) Problem Qualifiers (1) HTN (hypertension): Qualified Code: I15.0 - Renovascular hypertension (2) Cervical cancer: Qualified Code: C53.9 - Malignant neoplasm of cervix, unspecified site Evangelista Ybarra MD R1 Sep 11, 2016 11:07 Beto Herzog MD Sep 11, 2016 11:26
--- NOTE | 2016-09-11 11:27 | RADRPT ---
EXAM DATE/TIME: 09/11/2016 09:45 [facility] COMPARISON: No previous studies available for comparison. INDICATIONS : Patientis in need of exchange of existing bilateral nephrostomy tubes. MEDICAL HISTORY : History of pyelonephritis, cervical cancer, hydronephrosis and renal obstruction, HTN. SURGICAL HISTORY : History of nephrostomy tube placement, cholecystectomy, appendectomy, colostomy. ENCOUNTER: Initial ACUITY: 1 day PAIN SCORE: 9/10 LOCATION: Right flank FLUORO TIME: 2.2 minutes SEDATION TIME: 30 minutes CONTRAST: 20 cc Omnipaque (iohexol) 350 MEDICATION(S): 1.) 5 mg midazolam (Versed) IV 2.) 250 mcg fentanyl (Sublimaze) IV DEVICE(S): 1.) 8 [place] 25cm Flexima catheter PROCEDURE : 1. Antegrade pyelogram. 2. Nephrostomy tube exchange. 3. Conscious sedation with continuous EKG and oximetry monitoring. The risks, benefits and alternatives to the procedure were explained and verbal and written consent w as obtained. The site was prepped in sterile fashion. Full sterile technique was used, including ca p, mask, sterile gloves and gown and a large sterile sheet. Hand hygiene and 2% chlorhexidine and/or betadine/alcohol prep was utilized per protocol for cutaneous antisepsis. The skin and subcutaneous tissues were infiltrated with local anesthetic solution. With fluoroscopic guidance antegrade pyelo gram was performed. Injection of the catheter demonstrates it position without hydronephrosis. Over a guidewire the prescribed nephrostomy tube was placed. Injection of positive contrast demonstra johny good position of the catheter within the collecting system. Conscious sedation was performed with the prescribed dosages and duration as above. The patient tole rated the procedure well and there were no complications. EKG and oximetry remained stable throughou t the procedure. The patient was sent to post anesthesia recovery in stable condition. CONCLUSION: Uncomplicated nephrostomy tube exchange as above. Scott Ospina MD on September 11, 2016 at 11:25 Board Certified Radiologist. This report was verified electronically.
--- NOTE | 2016-09-11 11:28 | RADRPT ---
EXAM DATE/TIME: 09/11/2016 09:45 [facility] COMPARISON: No previous studies available for comparison. INDICATIONS : Patient is in need of exchange of existing bilateral nephrostomy tubes. MEDICAL HISTORY : History of pyelonephritis, cervical cancer, hydronephrosis and renal obstruction, HTN. SURGICAL HISTORY : History of nephrostomy tube placement, cholecystectomy, appendectomy, colostomy. ENCOUNTER: Initial ACUITY: 3 days PAIN SCORE: 9/10 LOCATION: Right flank FLUORO TIME: 2.2 minutes SEDATION TIME: 30 minutes CONTRAST: 20 cc Omnipaque (iohexol) 350 MEDICATION(S): 1.) 5 mg midazolam (Versed) IV 2.) 250 mcg fentanyl (Sublimaze) IV DEVICE(S): 1.) 8 [place] 25cm Flexima catheter PROCEDURE : 1. Antegrade pyelogram. 2. Nephrostomy tube exchange. 3. Conscious sedation with continuous EKG and oximetry monitoring. The risks, benefits and alternatives to the procedure were explained and verbal and written consent w as obtained. The site was prepped in sterile fashion. Full sterile technique was used, including ca p, mask, sterile gloves and gown and a large sterile sheet. Hand hygiene and 2% chlorhexidine and/or betadine/alcohol prep was utilized per protocol for cutaneous antisepsis. The skin and subcutaneous tissues were infiltrated with local anesthetic solution. With fluoroscopic guidance antegrade pyelo gram was performed. Injection of the catheter demonstrates good position without hydronephrosis. Over a guidewire the prescribed nephrostomy tube was placed. Injection of positive contrast demonstra johny good position of the catheter within the collecting system. Conscious sedation was performed with the prescribed dosages and duration as above. The patient tole rated the procedure well and there were no complications. EKG and oximetry remained stable throughou t the procedure. The patient was sent to post anesthesia recovery in stable condition. CONCLUSION: Uncomplicated nephrostomy tube exchange as above. Scott Ospina MD on September 11, 2016 at 11:26 Board Certified Radiologist. This report was verified electronically.
[2016-09-11] MEDS: PROMETHAZINE HCL 25 MG TAB PO PRN (17:56)
[2016-09-11] MEDS: CYCLOBENZAPRINE HCL 10 MG TAB PO PRN (17:56)
[2016-09-11] MEDS: AMOXICILLIN (TRIHYDRATE) 500 MG CAP PO SCH (17:56)
[2016-09-11] MEDS: ZOLPIDEM TARTRATE 5 MG TAB PO PRN (23:51)
[2016-09-12] VITALS: BP 106/55; PULSE 74; RESP 16; TEMP 98.4; O2SAT 99
[2016-09-12] MEDS: MORPHINE SULFATE 4 MG/ML INJ IV PRN (02:03)
[2016-09-12] MEDS: CYCLOBENZAPRINE HCL 10 MG TAB PO PRN (03:53)
[2016-09-12 04:00] VITALS: BP 102/56; PULSE 72; RESP 16; TEMP 98.7; O2SAT 99
[2016-09-12 05:52] LABS: AUTOMATED NEUTROPHIL # 6.7 TH/MM3 (1.8-7.7); BASOPHIL % 0.5 % (0.0-2.0); EOSINOPHIL # 0.3 TH/MM3 (0-0.4); EOSINOPHIL % 3.5 % (0.0-4.0); HEMATOCRIT 22.7 % (35.0-46.0); LYMPH % 12.6 % (9.0-44.0); LYMPHOCYTE # 1.1 TH/MM3 (1.0-4.8); MEAN CORPUSCULAR HEMOGLOBIN 28.7 PG (27.0-34.0); MEAN CORPUSCULAR HGB CONC 33.4 % (32.0-36.0); MONO % 5.7 % (0.0-8.0); NEUT % 77.7 % (16.0-70.0); PLATELET COUNT 261 TH/MM3 (150-450); RED BLOOD COUNT 2.64 MIL/MM3 (4.00-5.30); WHITE BLOOD COUNT 8.7 TH/MM3 (4.0-11.0)
[2016-09-12 05:58] LABS: HEMO FLAGS AUTO DIFF
[2016-09-12 06:22] LABS: BICARBONATE 17.1 MEQ/L (21.0-32.0)
[2016-09-12 06:28] LABS: POTASSIUM 2.8 MEQ/L (3.5-5.1)
[2016-09-12] MEDS ORDERED: POTASSIUM CHLOR 20 MEQ PREMIX 100 ML IV SCH (06:45)
[2016-09-12] MEDS ORDERED: POTASSIUM CHLORIDE 10 MEQ CONTROLLED RELEASE TAB PO ONE ×2 (06:45→11:00)
[2016-09-12 07:35] LABS: BANDS 4 % (0-6); BURR CELLS 1+ (NORMAL); EOSINOPHILS 1 % (0-4); METAMYELOCYTES 1 % (0-1); PLATELET ESTIMATE SMEAR NORMAL (NORMAL); PLATELET MORPHOLOGY NORMAL (NORMAL); POLYS (SEG NEUTROPHILS) 76 % (16-70); SCAN/DIFF FINAL DIFF MANUAL; WBC DIFF SAMPLE 100
[2016-09-12] MEDS: AMOXICILLIN (TRIHYDRATE) 500 MG CAP PO SCH ×2 (07:44→12:38)
[2016-09-12] MEDS: cloNIDine HCL 0.1 MG TAB PO SCH (07:44)
[2016-09-12] MEDS: METOPROLOL TARTRATE 50 MG TAB PO SCH (07:45)
[2016-09-12] MEDS: HEPARIN SODIUM - SQ 10,000 UNITS/ML VIAL SQ SCH ×2 (07:45→07:54)
[2016-09-12] MEDS: ACETAMINOPHEN/HYDROcodone 325 MG/7.5 MG TAB PO PRN ×2 (07:46→12:26)
[2016-09-12] MEDS: SODIUM CHLORIDE 0.9% FLUSH 5 ML FLUSH IVF SCH (07:51)
[2016-09-12] MEDS: ALPRAZolam 0.5 MG TAB PO PRN (07:59)
[2016-09-12 08:00] VITALS: BP 138/70; PULSE 93; RESP 20; TEMP 97.1; O2SAT 97
--- NOTE | 2016-09-12 08:16 | HHI.FPPN ---
Subjective Remarks Patient seen and examined this morning. Potassium 2.8 this morning. Overall, feels improved, but reports worsening pain in the back from the nephrostomy tubes replaced yesterday. She states she takes 30mg morphine q3-4 hours at home and states that the lortab isn't helping. Denies fever/chills, lightheadedness/ dizziness, chest pain, SOB, leg pain. (Evangelista Ybarra MD R1) Objective Vitals Vital Signs Date Time Temp Pulse Resp B/P Pulse Ox O2 Delivery O2 Flow Rate FiO2 09/12/16 04:00 98.7 72 16 102/56 99 09/12/16 00:00 98.4 74 16 106/55 99 09/11/16 20:00 98.3 70 15 97/52 100 09/11/16 16:20 98.0 76 16 110/65 100 09/11/16 12:30 97.3 74 16 95/58 100 09/11/16 11:55 63 16 124/68 100 09/11/16 11:25 66 18 124/69 100 09/11/16 10:55 72 16 112/69 97 09/11/16 10:40 98.3 80 16 105/68 100 I/O 09/11/16 09/11/16 09/11/16 09/12/16 09/12/16 09/12/16 07:00 15:00 23:00 07:00 15:00 23:00 Intake Total 0 ml 480 ml 800 ml 1040 ml Output Total 850 ml 1400 ml 450 ml Balance -850 ml 480 ml -600 ml 590 ml Intake Oral 0 ml 480 ml 240 ml IV Total 800 ml 800 ml Output Urine Total 850 ml 750 ml 450 ml Stool Total 500 ml Drainage Total 150 ml # Voids 1 # Bowel Movements 0 (Evangelista Ybarra MD R1) Result Diagram: 09/12/16 0530 09/12/16 0530 Objective Remarks O. CONSTITUTIONAL/GEN: normally nourished, in NAD. EYES: conjunctiva normal, PERRLA, EOMI. LUNGS: clear A-P, respiratory effort is normal. CARDIOVASCULAR: RR without murmur or gallop. No significant edema. GI/ABD: soft without masses, without organomegaly. Colostomy in place left lower mid abdomen. NEURO: No focal deficits. MUSC: Extremities are normal in appearance. Back with bilateral nephrostomy tubes in place with dressing clean, dry, intact PSYCH/MENTAL STATUS: Alert and oriented x 3. (Evangelista Ybarra MD R1) A/P Assessment and Plan 51 y/o female with history of cervical cancer, bilateral nephrostomy tubes, colostomy presents with fever and abdominal pain. Will admit for pyelonephritis treatment. Awaiting colostomy tube replacement Discharge Planning Pending improvement of clinical symptoms and urology recommendations (Evangelista Ybarra MD R1) Attending Attestation Case reviewed and discussed with the resident team. Agree with plan of care as discussed with me and documented in the resident note. (Beto Herzog MD) Problem List: (1) Pyelonephritis Status: Acute Plan: Bilateral nephrostomy tubes placed in July. History of metastatic ovarian cancer. Failed outpatient treatment of Levaquin. CT abdomen/pelvis: No acute disease. -Urine culture: Enterococcus faecalis, VRE Plan -Continue Amoxicillin 500mg TID -Consult urology, patient known to Dr. Alexander; appreciate recs -s/p nephrostomy tube replacement POD#1, tubes draining well -Normal saline at 100 ml/hr -Blood culture: NGTD -Pain control with Tylenol, [place], morphine -Phenergan PRN nausea -s/p cefepime (2/3-2/6) (2) HTN (hypertension) Status: Acute Plan: -Continue home meds -Amlodipine 10mg daily -Clonidine 0.1mg BID -Metoprolol 50mg BID -Monitor vitals (3) Cervical cancer Status: Chronic Plan: History of cervical cancer. Oncologist is Dr. Santoyo in [place] Monitor at this time (4) FEN Status: Acute Plan: Out of bed ad meghan. Fluids: NS @ 100mls/hr Monitor electrolytes; Hypokalemia 2.8 this morning, replacing with oral KCl Nutrition: renal diet DVT ppx: Heparin 5,000 units SQ q8H CODE STATUS: Full code (Evangelista Ybarra MD R1) Problem Qualifiers (1) HTN (hypertension): Qualified Code: I15.0 - Renovascular hypertension (2) Cervical cancer: Qualified Code: C53.9 - Malignant neoplasm of cervix, unspecified site Evangelista Ybarra MD R1 Sep 12, 2016 08:16 Beto Herzog MD Sep 12, 2016 09:37
[2016-09-12] MEDS: SODIUM CHLOR 0.9% 1000 ML INJ 1,000 ML IV SCH (10:00)
[2016-09-12] MEDS ORDERED: AMOX500C PO (10:58)
--- NOTE | 2016-09-12 10:59 | HHI.DCPOC ---
Discharge Care Plan Diagnosis: (1) Leukocytosis (2) Pyelonephritis (3) Cervical cancer (4) FAISAL (acute kidney injury) Goals to Promote Your Health * To prevent worsening of your condition and complications * To maintain your health at the optimal level Take antibiotics as prescribed to completion Directions to Meet Your Goals Take your medications as prescribed Follow your dietary instruction Follow activity as directed Keep your appointments as scheduled Take your immunizations and boosters as scheduled If your symptoms worsen call your PCP, if no PCP go to Urgent Care Center or Emergency Room Smoking is Dangerous to Your Health. Avoid second hand smoke Call the 24-hour hour crisis hotline for domestic abuse at Abdulaziz Eric MD R2 Sep 12, 2016 10:59
--- NOTE | 2016-09-12 11:14 | HHI.DS ---
Discharge Summary Admission Date Sep 08, 2016 at 18:25 Discharge Date: Sep 12, 2016 Admitting Diagnosis pyelonephritis (1) Pyelonephritis Diagnosis: Principal Plan: Bilateral nephrostomy tubes placed in July. History of metastatic ovarian cancer. Failed outpatient treatment of Levaquin. CT abdomen/pelvis: No acute disease. -Urine culture: Enterococcus faecalis, VRE Plan -Continue Amoxicillin 500mg TID -Consult urology, patient known to Dr. Alexander; appreciate recs -s/p nephrostomy tube replacement POD#1, tubes draining well -Normal saline at 100 ml/hr -Blood culture: NGTD -Pain control with Tylenol, [place], morphine -Phenergan PRN nausea -s/p cefepime (09/08-09/11) (2) HTN (hypertension) Diagnosis: Secondary Plan: -Continue home meds -Amlodipine 10mg daily -Clonidine 0.1mg BID -Metoprolol 50mg BID -Monitor vitals (3) Cervical cancer Diagnosis: Secondary Plan: History of cervical cancer. Oncologist is Dr. Santoyo in [place] Monitor at this time (4) FEN Diagnosis: Secondary Plan: Out of bed ad meghan. Fluids: NS @ 100mls/hr Monitor electrolytes; Hypokalemia 2.8 this morning, replacing with oral KCl Nutrition: renal diet DVT ppx: Heparin 5,000 units SQ q8H CODE STATUS: Full code [facility] U[facility], nephrology Procedures IR replacement of bilateral nephrostomy tubes Brief History 51-year-old female with history of cervical cancer, bilateral nephrostomy tubes, colostomy presents for fever and abdominal pain. She was seen by her oncologist, Dr. Santoyo in [place], and given Levaquin for possible UTI. Since then her abdominal pain has worsened. She states the pain is mainly on her right flank has had fevers up to 103 at home. Endorses nausea, occasional vomiting, some weight loss. Also notes that she has had decreased urinary output from the right nephrostomy tube. She does not have a PCP. Poor historian due to anxiety during the encounter. CBC/BMP: 09/12/16 0530 09/12/16 0530 Significant Findings Laboratory Tests Test 09/09/16 09/10/16 09/11/16 09/12/16 17:04 07:50 08:48 05:30 Carbon Dioxide Level 20.9 MEQ/L 20.4 MEQ/L 17.1 MEQ/L (21.0-32.0) (21.0-32.0) (21.0-32.0) Creatinine 1.08 MG/DL (0.50-1.00) Estimat Glomerular Filtration 54 ML/MIN (>89) 78 ML/MIN (>89) 81 ML/MIN (>89) 85 ML/MIN (>89) Rate Calcium Level 8.3 MG/DL 8.3 MG/DL 7.9 MG/DL 7.6 MG/DL (8.5-10.1) (8.5-10.1) (8.5-10.1) (8.5-10.1) Red Blood Count 3.22 MIL/MM3 3.46 MIL/MM3 2.64 MIL/MM3 (4.00-5.30) (4.00-5.30) (4.00-5.30) Hemoglobin 9.2 GM/DL 10.0 GM/DL 7.6 GM/DL (11.6-15.3) (11.6-15.3) (11.6-15.3) Hematocrit 27.0 % 29.6 % 22.7 % (35.0-46.0) (35.0-46.0) (35.0-46.0) Mean Platelet Volume 5.4 FL 5.9 FL 5.7 FL (7.0-11.0) (7.0-11.0) (7.0-11.0) Neutrophils (%) (Auto) 79.7 % 77.7 % (16.0-70.0) (16.0-70.0) Lymphocytes # (Auto) 0.8 TH/MM3 (1.0-4.8) Neutrophils % (Manual) 82 % (16-70) 76 % (16-70) Myelocytes 1 % (0-0) Chloride Level 108 MEQ/L 109 MEQ/L 112 MEQ/L (98-107) (98-107) (98-107) Potassium Level 3.2 MEQ/L 2.8 MEQ/L (3.5-5.1) (3.5-5.1) Kathia Cells 1+ (NORMAL) Random Glucose 131 MG/DL (74-106) Magnesium Level 1.1 MG/DL (1.5-2.5) PE at Discharge O. CONSTITUTIONAL/GEN: normally nourished, in NAD. EYES: conjunctiva normal, PERRLA, EOMI. LUNGS: clear A-P, respiratory effort is normal. CARDIOVASCULAR: RR without murmur or gallop. No significant edema. GI/ABD: soft without masses, without organomegaly. Colostomy in place left lower mid abdomen. NEURO: No focal deficits. MUSC: Extremities are normal in appearance. Back with bilateral nephrostomy tubes in place with dressing clean, dry, intact PSYCH/MENTAL STATUS: Alert and oriented x 3. Hospital Course 51 y/o female with history of cervical cancer, bilateral nephrostomy tubes and colostomy presents with pyelonephritis and decreased output from right nephrostomy tube. She failed outpatient oral treatment. Pt was admitted for IV antibiotics and pain control. Pt was started on Cefepime and nephrology and urology were consulted. Urology recommended replacement of nephrostomy tubes and IR performed procedure on 09/11. Patient clinically improved throughout hospitalization. Urine culture grew Enterococcus faecalis, sensitive to Amoxicillin. Pt was switched to PO Amoxicillin and will be discharged in stable condition with finishing outpatient antibiotic course. Pt Condition on Discharge: Stable Discharge Disposition: Discharge Home Discharge Instructions DIET: Follow Instructions for: As Tolerated, No Restrictions Activities you can perform: Regular-No Restrictions Follow up Referrals: [facility] Oncology - 1 Week PCP Follow-up - 1 Week Urology - 1 Week with James Simms MD New Medications: Amoxicillin (Amoxicillin) 500 Mg Cap 500 MG PO TID #15 CAP Continued Medications: Alprazolam (Alprazolam) 0.25 Mg Tab 0.25 MG PO Q4H PRN ANXIETY Ref 0 TAB Amlodipine (Norvasc) 10 Mg Tab 10 MG PO DAILY Blood Pressure Management #30 Ref 0 TAB Clonidine (Clonidine) 0.1 Mg Tab 0.1 MG PO BID Blood Pressure Management #60 Ref 0 TAB Metoprolol Tartrate (Metoprolol Tartrate) 50 Mg Tab 50 MG PO BID #60 Ref 0 TAB Morphine ER (Morphine ER) 30 Mg Tab 30 MG PO Q4HR Pain Management Ref 0 TAB Promethazine (Phenergan) 25 Mg Tab 25 MG PO Q6H PRN Nausea/Vomiting Ref 0 TAB Evangelista Ybarra MD R1 Sep 12, 2016 11:14
[2016-09-12 12:00] VITALS: BP 118/67; PULSE 69; RESP 18; TEMP 98.5; O2SAT 98
== END 2016-09-12 17:44 | disposition home or self-care (01) | DRG 699 ==
LOC: NEPE 11:19 → UNDOADMIN 16:04 → NEDA 16:04 → HOCB 21:31
PROVIDERS: ADMIT Family Medicine; ATTEND Family Medicine
PROC: 0T25X0Z Change Drainage Device in Kidney, External Approach (ICD-10-PCS; principal; 2016-09-11)
PROC: 0T25X0Z Change Drainage Device in Kidney, External Approach (ICD-10-PCS; 2016-09-11)
DX: T83.092A Other mechanical complication of nephrostomy catheter, initial encounter (principal); N17.9 Acute kidney failure, unspecified; I15.0 Renovascular hypertension; Z93.6 Other artificial openings of urinary tract status; N13.6 Pyonephrosis; C53.9 Malignant neoplasm of cervix uteri, unspecified; B95.2 Enterococcus as the cause of diseases classified elsewhere; E87.6 Hypokalemia; F41.9 Anxiety disorder, unspecified; F17.210 Nicotine dependence, cigarettes, uncomplicated; Z93.3 Colostomy status; Z92.3 Personal history of irradiation; Y84.6 Urinary catheterization as the cause of abnormal reaction of the patient, or of later complication, without mention of misadventure at the time of the procedure
CPT/HCPCS: 50435; 74177; 80048; 80053; 81001; 82550; 83605; 83690; 83735; 85007; 85025; 85027; 85610; 85730; 87040; 87077; 87086; 87186; 96361; 96365; 96375; 99152; 99153; C1729; C1769; J0692; J1170; J1644; J1885; J2250; J2270; J2405; J2550; J3010; J7030; Q0169; Q9967

== ENCOUNTER 2016-12-11 18:37 | Emergency (ER) | payer OTHER ==
[~2016-12-11] VITALS: Ht 152.4 cm; Wt 48.0 kg
[~2016-12-11 18:37] MED LIST changes: +ALPR0.25 PO; +AMLO10 PO; +AMOX500C PO; +CLON0.1T PO; -GABA800T PO; +METO50TA PO; +PROM25TA5 PO; -[UNRECOGNIZED DRUG - REMARK]; -blood pressure med PO
[2016-12-11 18:40] VITALS: BP 165/98; PULSE 84; RESP 18; TEMP 98.7; O2SAT 97
--- NOTE | 2016-12-11 18:45 | PD ---
Physical Exam Time Seen by Provider: 18:43 Narrative 51yo F w/ c/o infection to site of L ostomy. Still draining. Denies fever, vomiting. Denies abd pain, flank pain. VS reviewed. Patient seen in triage. Awaiting bed placement. Data Data Last Documented VS Vital Signs Date Time Temp Pulse Resp B/P Pulse Ox O2 Delivery O2 Flow Rate FiO2 12/11/16 18:40 98.7 84 18 165/98 97 MDM Supervised Visit with SHERWIN: Velma Figueroa December 11, 2016 18:45
[2016-12-11] MEDS ORDERED: SODIUM CHLOR 0.9% 1000 ML INJ 1,000 ML IV ONE (18:58)
[2016-12-11] MEDS ORDERED: SODIUM CHLORIDE 0.9% FLUSH 10 ML FLUSH IVF PRN (19:00)
--- NOTE | 2016-12-11 19:11 | PD ---
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 Patient believes that they are infected because she has discharge on her dressings. She reports at the left nephrostomy tube is leaking along with tubing as well as in the back itself. She states that she's been cleaning the bag out with water. She also reports not having supplies to change her colostomy and has been washing this out as well. She reports chronic pain but no new pain or exacerbated pain in her back. She states it's been going on for quite some time. She feels as if they need to be changed out. She reports abdominal pain but states this is chronic in nature for her as well.. Patient's past medical history include bilateral nephrostomy tubes, colostomy, metastatic cervical cancer, hypertension. Patient 's primary care provider is Dr. White and she is followed by Dr. Santoyo oncology in [place]. [facility] Past Medical History Blood Disorders: No Heart Rhythm Problems: No Cancer: Yes (CERVICAL) High Cholesterol: No Chemotherapy: Yes (7 weeks ago (stated 07/24/16)) Chest Pain: No Congestive Heart Failure: No Diminished Hearing: No Endocrine: No Gastrointestinal Disorders: No Genitourinary: No Hypertension: Yes (takes no meds) Immune Disorder: No Implanted Vascular Access Dvce: No Musculoskeletal: No Neurologic: No Psychiatric: No Respiratory: No Immunizations Current: No Radiation Therapy: Yes ("1 year ago" (stated 07/24/16)) ?: Not Past Surgical History Abdominal Surgery: Yes (COLOSTOMY) Appendectomy: Yes Section: Yes Genitourinary Surgery: Yes (bilateral nephrostomy tubes) Gynecologic Surgery: Yes (cervcial sleeve, c section) Other Surgery: Yes Social History Alcohol Use: No (DENIES) Tobacco Use: Yes (states 2 cigarettes daily) Substance Use: No Allergies-Medications (Allergen,Severity, Reaction): Coded Allergies: *MDRO Multi-Drug Resistant Organism (Verified Adverse Reaction, Unknown, ) 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 Reported Meds & Prescriptions Reported Meds & Active Scripts Active Amoxicillin 500 Mg Cap 500 Mg PO TID Reported Norvasc (Amlodipine Besylate) 10 Mg Tab 10 Mg PO DAILY Morphine ER (Morphine Sulfate) 30 Mg Tab 30 Mg PO Q4HR Phenergan (Promethazine HCl) 25 Mg Tab 25 Mg PO Q6H PRN Alprazolam 0.25 Mg Tab 0.25 Mg PO Q4H PRN Clonidine (Clonidine HCl) 0.1 Mg Tab 0.1 Mg PO BID Metoprolol Tartrate 50 Mg Tab 50 Mg PO BID Review of Systems Except as stated in HPI: all other systems reviewed are Neg General / Constitutional: No: Fever, Chills HENT: No: Headaches Cardiovascular: No: Chest Pain or Discomfort Respiratory: No: Cough, Shortness of Breath Gastrointestinal: Positive: Nausea (occasionally, chronic issue), No: Abdominal Pain, Changes in Bowel Habits, Loss of Appetite Genitourinary: No: Dysuria, Decreased Urinary Output Musculoskeletal: Positive: Myalgias (back pain) Skin: Positive Other (drainage that nephrostomy insertion site.) Physical Exam Narrative GENERAL: Thin, well-developed, alert female. Resting comfortably in no acute distress. SKIN: Focused skin assessment warm/dry. Bilateral nephrostomy tubes on left and right back. Scant drainage noted, no significant erythema or induration. Nontender to palpation. HEAD: Atraumatic. Normocephalic. EYES: Pupils equal and round. No scleral icterus. No injection or drainage. ENT: No nasal bleeding or discharge. Mucous membranes pink and moist. NECK: Trachea midline. No JVD. CARDIOVASCULAR: Regular rate and rhythm. No murmur appreciated. RESPIRATORY: No accessory muscle use. Clear to auscultation. Breath sounds equal bilaterally. GASTROINTESTINAL: Abdomen soft, non-tender, nondistended. Hepatic and splenic margins not palpable. Right upper quadrant colostomy tube MUSCULOSKELETAL: No obvious deformities. No clubbing. No cyanosis. No edema. NEUROLOGICAL: Awake and alert. No obvious cranial nerve deficits. Motor grossly within normal limits. Normal speech. PSYCHIATRIC: Appropriate mood and affect; insight and judgment normal. Data Data Last Documented VS Vital Signs Date Time Temp Pulse Resp B/P Pulse Ox O2 Delivery O2 Flow Rate FiO2 12/11/16 19:25 98.4 68 18 168/83 98 Room Air Orders Complete Blood Count With Diff (12/11/16 18:58) Comprehensive Metabolic Panel (12/11/16 18:58) Urinalysis - C+S If Indicated (12/11/16 18:58) Iv Access Insert/Monitor (12/11/16 18:58) Ecg Monitoring (12/11/16 18:58) Sodium Chloride 0.9% Flush (Ns Flush) (12/11/16 19:00) Sodium Chlor 0.9% 1000 Ml Inj (Ns 1000 M (12/11/16 18:58) Wound Culture And Gram Stain (12/11/16 18:58) Wound Culture And Gram Stain (12/11/16 18:58) Urine Culture (12/11/16 19:45) Nitrofurantoin Monohyd Macrocr (Macrobid (12/11/16 20:30) Labs Laboratory Tests Test 12/11/16 19:45 White Blood Count 7.6 TH/MM3 Red Blood Count 3.74 MIL/MM3 Hemoglobin 11.5 GM/DL Hematocrit 33.9 % Mean Corpuscular Volume 90.6 FL Mean Corpuscular Hemoglobin 30.6 PG Mean Corpuscular Hemoglobin 33.8 % Concent Red Cell Distribution Width 14.5 % Platelet Count 415 TH/MM3 Mean Platelet Volume 5.9 FL Neutrophils (%) (Auto) 69.6 % Lymphocytes (%) (Auto) 13.5 % Monocytes (%) (Auto) 8.4 % Eosinophils (%) (Auto) 7.7 % Basophils (%) (Auto) 0.8 % Neutrophils # (Auto) 5.3 TH/MM3 Lymphocytes # (Auto) 1.0 TH/MM3 Monocytes # (Auto) 0.6 TH/MM3 Eosinophils # (Auto) 0.6 TH/MM3 Basophils # (Auto) 0.1 TH/MM3 CBC Comment DIFF FINAL Differential Comment Urine Color YELLOW Urine Turbidity CLOUDY Urine pH 8.0 Urine Specific [place] 1.011 Urine Protein 100 mg/dL Urine Glucose (UA) NEG mg/dL Urine Ketones NEG mg/dL Urine Occult Blood MOD Urine Nitrite POS Urine Bilirubin NEG Urine Urobilinogen LESS THAN 2.0 MG/DL Urine Leukocyte Esterase LARGE Urine RBC 136 /hpf Urine WBC 33 /hpf Urine Squamous Epithelial 1 /hpf Cells Urine Bacteria OCC /hpf Microscopic Urinalysis Comment CULTURE INDICATED Sodium Level 140 MEQ/L Potassium Level 4.3 MEQ/L Chloride Level 104 MEQ/L Carbon Dioxide Level 29.3 MEQ/L Anion Gap 7 MEQ/L Blood Urea Nitrogen 12 MG/DL Creatinine 1.11 MG/DL Estimat Glomerular Filtration 52 ML/MIN Rate Random Glucose 99 MG/DL Calcium Level 8.6 MG/DL Total Bilirubin 0.2 MG/DL Aspartate Amino Transf 14 U/L (AST/SGOT) Alanine Aminotransferase 10 U/L (ALT/SGPT) Alkaline Phosphatase 129 U/L Total Protein 7.7 GM/DL Albumin 2.9 GM/DL MDM Medical Decision Making Medical Screen Exam Complete: Yes Emergency Medical Condition: Yes Medical Record Reviewed: Yes Interpretation(s) Vital Signs Date Time Temp Pulse Resp B/P Pulse Ox O2 Delivery O2 Flow Rate FiO2 12/11/16 18:40 98.7 84 18 165/98 97 Differential Diagnosis UTI versus cellulitis versus sepsis versus device malfunction versus other Narrative Course Patient is a 51-year-old female presenting to emergency for evaluation of a possible infection in her nephrostomy tubes. The nephrostomy tube is leaking and the bags have holes in them. Patient has been utilizing Ziploc bags in order to avoid having urine on her. Labs ordered and pending. Wound culture obtained from each nephrostomy site this is also pending. His vital signs are stable, she is afebrile well oxygenated on room air, she does not appear acutely ill. CBC and chemistry reviewed and are unremarkable. Urinalysis is positive for occult blood, nitrite, hematuria, pyuria. Patient will be given dose of nitrofurantoin in the emergency department, her last urine culture was positive for Enterococcus faecalis VRE and susceptible to nitrofurantoin. Patient was evaluated by radiologist in the emergency department, she will follow up tomorrow with interventional radiology to have nephrostomy tubes replaced. Patient was given written information regarding this. She was encouraged return to emergency department a new or worsening symptoms. Patient verbalized understanding of these instructions. Patient stable for discharge. Diagnosis Primary Impression: Nephrostomy tube failure with subsequent urine leak Additional Impression: Urinary tract infection associated with nephrostomy catheter Qualified Code: T83.512A - Urinary tract infection associated with nephrostomy catheter, initial encounter Referrals: INTERVENTIONAL RADIOLOGY Chris Granda MD 1 day [facility] 1 day Follow-up and [facility] outpatient testing tomorrow to have nephrostomy tubes replaced. Patient Instructions: Catheter-associated Urinary Tract Infection (ED), General Instructions Additional Instructions: Follow up with interventional radiology tomorrow as advised Return to emergency department for any new or worsening symptoms Complete full course of antibiotics as directed Maintain adequate fluid intake Med/Other Pt SpecificInfo: Prescription(s) given Scripts Nitrofurantoin Monohydrate Macrocrystals 100 Mg [id number] Mg PO BID 7 Days Ref 0 Prov:Crystal Estrella 12/11/16 Disposition: 01 DISCHARGE HOME Condition: Stable Crystal Estrella December 11, 2016 19:11
[2016-12-11 19:25] VITALS: BP 168/83; PULSE 68; RESP 18; TEMP 98.4; O2SAT 98
--- NOTE | 2016-12-11 19:50 | PD.RAD ---
Radiology Note Pt with B PCN last changed in Sep. Mild exudate at exit sites bilaterally. Mild erythema. Granulation tissue. Mild urine leakage L>R. Collection bag also leaking Urine looks clear. Imp: Needs B PCN exchanges. Oral abx for skin gerson coverage P: Return to [facility] in AM for exchange procedure. D/W Dr Crane. Chris Granda MD December 11, 2016 19:50
[2016-12-11 20:00] LABS: AUTOMATED NEUTROPHIL # 5.3 TH/MM3 (1.8-7.7); BASOPHIL # 0.1 TH/MM3 (0-0.2); BASOPHIL % 0.8 % (0.0-2.0); EOSINOPHIL # 0.6 TH/MM3 (0-0.4); EOSINOPHIL % 7.7 % (0.0-4.0); HEMATOCRIT 33.9 % (35.0-46.0); HEMO FLAGS DIFF FINAL; LYMPH % 13.5 % (9.0-44.0); MEAN CELL VOLUME 90.6 FL (80.0-100.0); MEAN CORPUSCULAR HEMOGLOBIN 30.6 PG (27.0-34.0); MEAN CORPUSCULAR HGB CONC 33.8 % (32.0-36.0); MONO % 8.4 % (0.0-8.0); NEUT % 69.6 % (16.0-70.0); PLATELET COUNT 415 TH/MM3 (150-450); RED BLOOD COUNT 3.74 MIL/MM3 (4.00-5.30); RED CELL DISTRIBUTION WIDTH 14.5 % (11.6-17.2); WHITE BLOOD COUNT 7.6 TH/MM3 (4.0-11.0)
[2016-12-11 20:12] LABS: BACTERIA, URINE OCC /hpf; BLOOD, URINE MOD (NEG); COMMENT (UR) CULTURE INDICATED; CULTURE IF INDICATED CULTURE INDICATED; GLUCOSE,URINE NEG (NEG); KETONE, URINE NEG (NEG); NITRITE,URINE POS (NEG); SQUAMOUS EPITHELIAL CELL URINE 1 /hpf (0-5); URINE COLOR YELLOW (YELLW/STRAW)
[2016-12-11] MEDS ORDERED: NITROFURANTOIN MONOHYD MACROCR 100 MG CAP PO ONE (20:30)
[2016-12-11 20:36] LABS: ALT (GPT) 10 U/L (10-53); ANION GAP 7 MEQ/L (5-15); AST (GOT) 14 U/L (15-37); BICARBONATE 29.3 MEQ/L (21.0-32.0); BLOOD UREA NITROGEN 12 MG/DL (7-18); CHLORIDE 104 MEQ/L (98-107); GLOMERULAR FILTRATION RATE 52 ML/MIN (>89); POTASSIUM 4.3 MEQ/L (3.5-5.1); SODIUM (NA) 140 MEQ/L (136-145)
[2016-12-11 20:39] LABS: ALKALINE PHOSPHATASE 129 U/L (45-117); TOTAL BILIRUBIN ADULT 0.2 MG/DL (0.2-1.0)
[2016-12-11] MEDS ORDERED: NITR100C4 PO (20:55)
== END 2016-12-11 22:12 | disposition home or self-care (01) ==
LOC: NEPC 18:37
DX: T83.512A Infection and inflammatory reaction due to nephrostomy catheter, initial encounter (principal); B96.4 Proteus (mirabilis) (morganii) as the cause of diseases classified elsewhere; B95.62 Methicillin resistant Staphylococcus aureus infection as the cause of diseases classified elsewhere
CPT/HCPCS: 80053; 81001; 85025; 86403; 87070; 87077; 87086; 87186; 99283; J7030; 87205

== ENCOUNTER 2016-12-15 05:59 | Day surgery (SDC) | payer OTHER ==
[~2016-12-15] VITALS: Ht 152.4 cm; Wt 47.7 kg
[~2016-12-15 05:59] MED LIST changes: +NITR100C4 PO
[2016-12-15 06:42] VITALS: BP 150/97; PULSE 89; RESP 20; TEMP 98; O2SAT 99
[2016-12-15] MEDS ORDERED: CLIN1CAP5 PO (06:46)
[2016-12-15] MEDS ORDERED: FENT75DI T-DERMAL (06:46)
[2016-12-15] MEDS ORDERED: SODIUM CHLORIDE 0.9% 1000 ML IV SCH (07:00)
[2016-12-15] MEDS ORDERED: LEVOFLOXACIN 500 MG PREMIX 100 ML - nephrostomy tube insertion or exchange IV SCH (07:00)
[2016-12-15] MEDS ORDERED: DIAZEPAM 10 MG TAB ONE (07:55)
[2016-12-15] MEDS ORDERED: MIDAZOLAM HCL 5 MG/5 ML VIAL ONE (07:55)
[2016-12-15] MEDS ORDERED: fentaNYL CITRATE 250 MCG/5 ML AMP ONE (07:56)
--- NOTE | 2016-12-15 09:09 | PD.RAD ---
Post Procedure Progress Note Pre Procedure Diagnosis: (1) Nephrostomy tube failure with subsequent urine leak (2) Cervical cancer Post Procedure Diagnosis: (1) Nephrostomy tube failure with subsequent urine leak (2) Cervical cancer Procedure Date: December 15, 2016 Supervising Radiologist: Ceferino Rosario Proceduralist/Assist: Carito James, RT(R), Davey Quiros RT(R)() Anesthesia: Local, Analgesia, Conscious Sedation Plan of Activity Patient to Unit: [facility] Patient Condition: Good See PACS Report for procedural detail/treatment Drainage Procedure Procedure 1 Imaging Guidance: Fluoroscopy Side: Bilateral Procedure Type: Nephrostomy Procedure: Exchange Syriac: 8 Drainage: [place] drainage Fluid Description: Yellow Findings: Calcific concretions in PCN tubes bilaterally. Unable to cannulate left. Removed and tract cannulated with Berenstein cath. New tube placed. Right tube exchanged over a wire. Ceferino Rosario MD December 15, 2016 09:09
[2016-12-15 09:15] VITALS: BP 120/69; PULSE 81; RESP 20; TEMP 97.8; O2SAT 98
[2016-12-15] MEDS ORDERED: IOHEXOL 300 MG/ML 50 ML BTL (for RAD DIAG) OTHER ONE (09:19)
[2016-12-15] MEDS ORDERED: IOHEXOL 350 MG/ML 50 ML BTL (for RAD DIAG) OTHER ONE (09:23)
[2016-12-15 09:30] VITALS: BP 105/57; PULSE 84; RESP 20; O2SAT 94
[2016-12-15 10:00] VITALS: BP 126/66; PULSE 84; RESP 20; O2SAT 97
[2016-12-15 10:30] VITALS: BP 145/80; PULSE 85; RESP 20; O2SAT 97
--- NOTE | 2016-12-15 15:51 | RADRPT ---
EXAM DATE/TIME: 12/15/2016 08:28 [facility] COMPARISON: CHANGE OF NEPHROSTOMY CATH, LT, September 11, 2016, 9:45. INDICATIONS : Patient with history of hydronephrosis in need of bilateral nephrostomy tube exchange. MEDICAL HISTORY : Pyelonephritis, cervical cancer, hydronephrosis and renal obstruction, HTN. SURGICAL HISTORY : Nephrostomy tube placement, cholecystectomy, appendectomy, colostomy. ENCOUNTER: Subsequent ACUITY: 3 months PAIN SCORE: 8/10 LOCATION: Pelvic. FLUORO TIME: 4.5 minutes IMAGE SERIES: 4 SEDATION TIME: 45 minutes CONTRAST: 35 cc Omnipaque (iohexol) 350 MEDICATION(S): 1.) 5 mg midazolam (Versed) IV 2.) 250 mcg fentanyl (Sublimaze) IV DEVICE(S): 1.) 8 English nephrostomy catheter PROCEDURE : 1. Antegrade pyelogram. 2. Nephrostomy tube exchange. 3. Conscious sedation with continuous EKG and oximetry monitoring. The risks, benefits and alternatives to the procedure were explained and verbal and written consent w as obtained. The site was prepped in sterile fashion. Full sterile technique was used, including ca p, mask, sterile gloves and gown and a large sterile sheet. Hand hygiene and 2% chlorhexidine and/or betadine/alcohol prep was utilized per protocol for cutaneous antisepsis. The skin and subcutaneous tissues were infiltrated with local anesthetic solution. With fluoroscopic guidance antegrade pyelo gram was performed. Due to luminal concretions, could not pass a wire through the existing catheter. The hub was excised and the catheter removed. The tract was cannulated with a hockey-stick catheter and guided back throu gh the existing tract into the collecting system of the kidney. Glidewire was advanced through the roselyn men over which a new 8 [place] loop drainage catheter was placed. Position was confirmed with pos itive contrast. Conscious sedation was performed with the prescribed dosages and duration as above in the presence of an independent trained radiology nurse to assist in the monitoring of the patient. EKG and oximetry remained stable throughout the procedure. The patient tolerated the procedure well and there were n o complications. The patient was sent to post anesthesia recovery in stable condition. CONCLUSION: Uncomplicated nephrostomy tube exchange as above. Ceferino Rosario MD on December 15, 2016 at 15:47 Board Certified Radiologist. This report was verified electronically.
--- NOTE | 2016-12-15 15:54 | RADRPT ---
EXAM DATE/TIME: 12/15/2016 08:28 [facility] COMPARISON: CHANGE OF NEPHROSTOMY CATH, RT, September 11, 2016, 9:45. INDICATIONS : Patient with history of hydronephrosis in need of bilateral nephrostomy tube exchange. MEDICAL HISTORY : Pyelonephritis, cervical cancer, hydronephrosis and renal obstruction, HTN. SURGICAL HISTORY : Nephrostomy tube placement, cholecystectomy, appendectomy, colostomy. ENCOUNTER: Subsequent ACUITY: 3 months PAIN SCORE: 8/10 Pelvic. FLUORO TIME: 4.5 minutes IMAGE SERIES: 4 SEDATION TIME: 45 minutes CONTRAST: 35 cc Omnipaque (iohexol) 350 MEDICATION(S): 1.) 5 mg midazolam (Versed) IV 2.) 250 mcg fentanyl (Sublimaze) IV DEVICE(S): 1.) 8 [place] nephrostomy catheter PROCEDURE : 1. Antegrade pyelogram. 2. Nephrostomy tube exchange. 3. Conscious sedation with continuous EKG and oximetry monitoring. The risks, benefits and alternatives to the procedure were explained and verbal and written consent w as obtained. The site was prepped in sterile fashion. Full sterile technique was used, including ca p, mask, sterile gloves and gown and a large sterile sheet. Hand hygiene and 2% chlorhexidine and/or betadine/alcohol prep was utilized per protocol for cutaneous antisepsis. The skin and subcutaneous tissues were infiltrated with local anesthetic solution. With fluoroscopic guidance antegrade pyelo gram was performed. Over a guidewire the prescribed nephrostomy tube was placed. Injection of positive contrast demonstra johny good position of the catheter within the collecting system. Due to luminal concretions, it was difficult to pass a [place] wire through the catheter and into the collecting system. However, with some manipulation, I was able to advance enough wire to safely e xchange for a new 8 [place] system. Conscious sedation was performed with the prescribed dosages and duration as above in the presence of an independent trained radiology nurse to assist in the monitoring of the patient. EKG and oximetry remained stable throughout the procedure. The patient tolerated the procedure well and there were n o complications. The patient was sent to post anesthesia recovery in stable condition. CONCLUSION: Uncomplicated nephrostomy tube exchange as above. Ceferino Rosario MD on December 15, 2016 at 15:49 Board Certified Radiologist. This report was verified electronically.
== END 2016-12-15 11:00 | disposition home or self-care (01) ==
LOC: HROP 05:59 → HRIP 06:40 → HROP 11:00
PROVIDERS: ATTEND Urology
DX: T83.032A Leakage of nephrostomy catheter, initial encounter (principal); N13.30 Unspecified hydronephrosis; C53.9 Malignant neoplasm of cervix uteri, unspecified; I10 Essential (primary) hypertension
CPT/HCPCS: 50435; 99152; 99153; C1729; C1769; C1887; J1956; J2250; J3010; J7030; Q9967

== ENCOUNTER 2017-03-01 09:17 | Emergency (ER) | payer OTHER ==
[~2017-03-01] VITALS: Ht 152.4 cm; Wt 47.5 kg
[2017-03-01] VITALS (7 sets, daily range): BP systolic 101–168; BP diastolic 55–88; PULSE 69–94; RESP 15–20; TEMP 99.1; O2SAT 96–98
[~2017-03-01 09:17] MED LIST changes: -ALPR0.25 PO; -AMOX500C PO; +CLIN1CAP5 PO; +FENT75DI T-DERMAL; -PROM25TA5 PO
[2017-03-01] MEDS ORDERED: NIVO1INJ IM (09:40)
[2017-03-01] MEDS ORDERED: thyroid medication (09:40)
--- NOTE | 2017-03-01 09:45 | PD ---
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 Patient had the nephrostomy tube inserted bilaterally in September of this year. I reviewed the records and that's how I found out. Patient did not remember the exact month or dates. She also had the tubes replaced on December of this year. She does not have any other issues. No discomfort. She has a follow-up with a new patient escort in the first week of March. PFSH Past Medical History Narrative Medical List of her past medical, surgical, social and family history was reviewed from the nursing note Blood Disorders: No Heart Rhythm Problems: No Cancer: Yes (cervical) High Cholesterol: No Chemotherapy: Yes (7 weeks ago (stated 07/24/16)) Chest Pain: No Congestive Heart Failure: No Diminished Hearing: No Endocrine: No Gastrointestinal Disorders: No Genitourinary: No Hypertension: Yes (takes no meds) Immune Disorder: No Implanted Vascular Access Dvce: No Musculoskeletal: No Neurologic: No Psychiatric: No Respiratory: No Immunizations Current: No Radiation Therapy: Yes ("1 year ago" (stated 07/24/16)) Tetanus Vaccination: < 5 Years ?: Not Menopausal: Yes Past Surgical History Abdominal Surgery: Yes (Colostomy) AICD: No Appendectomy: Yes Section: Yes Genitourinary Surgery: Yes (Bilateral Neprhostomy tubes) Gynecologic Surgery: Yes (cervcial sleeve, c section) Joint Replacement: No Pacemaker: No Other Surgery: Yes Social History Alcohol Use: No Tobacco Use: Yes Substance Use: No Allergies-Medications (Allergen,Severity, Reaction): Coded Allergies: *MDRO Multi-Drug Resistant Organism (Verified Adverse Reaction, Unknown, ) 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 Reported Meds & Prescriptions Reported Meds & Active Scripts Active Reported Opdivo (Nivolumab) 40 Mg/4 Ml Inj [thyroid medication] Fentanyl Patch 72 HR (Fentanyl) 75 Mcg/Hr Patch 75 Mcg T-DERMAL Q72H Remove old patch when new one placed. Morphine ER (Morphine Sulfate) 30 Mg Tab 30 Mg PO Q4HR Narrative Medication List of her home medications reviewed from the nursing note. Review of Systems Except as stated in HPI: all other systems reviewed are Neg Physical Exam Narrative GENERAL: Awake, alert, no obvious distress SKIN: Focused skin assessment warm/dry. Nephrostomy tube from the right side still in percutaneously. The nephrostomy tube from the left has fallen out HEAD: Atraumatic. Normocephalic. EYES: Pupils equal and round. No scleral icterus. No injection or drainage. ENT: No nasal bleeding or discharge. Mucous membranes pink and moist. NECK: Trachea midline. No JVD. CARDIOVASCULAR: Regular rate and rhythm. No murmur appreciated. RESPIRATORY: No accessory muscle use. Clear to auscultation. Breath sounds equal bilaterally. GASTROINTESTINAL: Abdomen soft, non-tender, nondistended. Hepatic and splenic margins not palpable. MUSCULOSKELETAL: No obvious deformities. No clubbing. No cyanosis. No edema. NEUROLOGICAL: Awake and alert. No obvious cranial nerve deficits. Motor grossly within normal limits. Normal speech. PSYCHIATRIC: Appropriate mood and affect; insight and judgment normal. Data Data Last Documented VS Vital Signs Date Time Temp Pulse Resp B/P Pulse Ox O2 Delivery O2 Flow Rate FiO2 03/01/17 16:00 72 20 158/86 96 Room Air 03/01/17 09:19 99.1 Orders Complete Blood Count With Diff (03/01/17 09:49) Basic Metabolic Panel (Bmp) (03/01/17 09:49) Prothrombin Time / Inr (Pt) (03/01/17 09:49) Midazolam Inj (Versed Inj) (03/01/17 13:09) Fentanyl Inj (Fentanyl Inj) (03/01/17 13:10) Vital Signs (Adult) Q15MX2,Q30MX2 (03/01/17 14:20) Intake + Output HOLLI.QSHIFT (03/01/17 14:20) ^ Drain (03/01/17 14:20) Change Dressing (03/01/17 14:20) Notify Radiology (03/01/17 14:20) Nephrostomy (03/01/17 ) Antegrade Pyelogram (03/01/17 ) Antegrade Pyelogram (03/01/17 ) Change Of Nephrostomy Cath (03/01/17 ) Iohexol 350 Inj (Omnipaque 350 Inj) (03/01/17 14:58) Morphine Inj (Morphine Inj) (03/01/17 15:45) Morphine Inj (Morphine Inj) (03/01/17 16:30) Labs Laboratory Tests Test 03/01/17 10:00 White Blood Count 5.2 TH/MM3 Red Blood Count 4.02 MIL/MM3 Hemoglobin 12.3 GM/DL Hematocrit 35.5 % Mean Corpuscular Volume 88.1 FL Mean Corpuscular Hemoglobin 30.7 PG Mean Corpuscular Hemoglobin 34.8 % Concent Red Cell Distribution Width 15.0 % Platelet Count 313 TH/MM3 Mean Platelet Volume 5.9 FL Neutrophils (%) (Auto) 61.8 % Lymphocytes (%) (Auto) 16.6 % Monocytes (%) (Auto) 7.0 % Eosinophils (%) (Auto) 13.2 % Basophils (%) (Auto) 1.4 % Neutrophils # (Auto) 3.2 TH/MM3 Lymphocytes # (Auto) 0.9 TH/MM3 Monocytes # (Auto) 0.4 TH/MM3 Eosinophils # (Auto) 0.7 TH/MM3 Basophils # (Auto) 0.1 TH/MM3 CBC Comment DIFF FINAL Differential Comment Prothrombin Time 10.0 SEC Prothromb Time International 0.9 RATIO Ratio Sodium Level 141 MEQ/L Potassium Level 3.8 MEQ/L Chloride Level 107 MEQ/L Carbon Dioxide Level 27.7 MEQ/L Anion Gap 6 MEQ/L Blood Urea Nitrogen 11 MG/DL Creatinine 1.05 MG/DL Estimat Glomerular Filtration 56 ML/MIN Rate Random Glucose 128 MG/DL Calcium Level 8.8 MG/DL [facility] Medical Decision Making Medical Screen Exam Complete: Yes Emergency Medical Condition: Yes Medical Record Reviewed: Yes Differential Diagnosis Nephrostomy tube out Narrative Course 10:49 AM blood test results of back and they are acceptable limits. I have ordered interventional radiology to reinsert the tubes. I waiting for them to do the procedure. It is done successfully I'll be able to discharge the patient home. Patient knows about this. 2:09 PM patient is over at the interventional radiology getting the nephrostomy placed back in. She will be discharged home after that. Procedures EKG Prior to Arrival: No Diagnosis Primary Impression: Displacement of nephrostomy tube Referrals: Primary Care Physician Additional Instructions: Please keep the tube clean and dry. Follow-up with your new patient escort. Med/Other Pt SpecificInfo: No Change to Meds Disposition: 01 DISCHARGE HOME Condition: Stable Owen Cutler MD Mar 01, 2017 09:45
[2017-03-01 10:23] LABS: AUTOMATED NEUTROPHIL # 3.2 TH/MM3 (1.8-7.7); BASOPHIL # 0.1 TH/MM3 (0-0.2); BASOPHIL % 1.4 % (0.0-2.0); EOSINOPHIL # 0.7 TH/MM3 (0-0.4); EOSINOPHIL % 13.2 % (0.0-4.0); HEMATOCRIT 35.5 % (35.0-46.0); HEMO FLAGS DIFF FINAL; LYMPH % 16.6 % (9.0-44.0); LYMPHOCYTE # 0.9 TH/MM3 (1.0-4.8); MEAN CELL VOLUME 88.1 FL (80.0-100.0); MEAN CORPUSCULAR HEMOGLOBIN 30.7 PG (27.0-34.0); MEAN CORPUSCULAR HGB CONC 34.8 % (32.0-36.0); NEUT % 61.8 % (16.0-70.0); PLATELET COUNT 313 TH/MM3 (150-450); RED BLOOD COUNT 4.02 MIL/MM3 (4.00-5.30); WHITE BLOOD COUNT 5.2 TH/MM3 (4.0-11.0)
[2017-03-01 10:30] LABS: INTERNATIONAL NORMALIZED RATIO 0.9 RATIO
[2017-03-01 10:38] LABS: BICARBONATE 27.7 MEQ/L (21.0-32.0); POTASSIUM 3.8 MEQ/L (3.5-5.1)
[2017-03-01] MEDS ORDERED: MIDAZOLAM HCL 5 MG/5 ML VIAL ONE (13:09)
[2017-03-01] MEDS ORDERED: fentaNYL CITRATE 250 MCG/5 ML AMP ONE (13:10)
--- NOTE | 2017-03-01 14:23 | PD.RAD ---
Post Procedure Progress Note Pre Procedure Diagnosis: (1) Displacement of nephrostomy tube (2) Cervical cancer (3) Obstructive uropathy Post Procedure Diagnosis: (1) Displacement of nephrostomy tube (2) Cervical cancer (3) Obstructive uropathy Procedure Date: Mar 01, 2017 Supervising Radiologist: Farooq Vu JR Proceduralist/Assist: Carito James, RT(R), Davey Quiros RT(R)() Anesthesia: Conscious Sedation Plan of Activity Patient to Unit: [facility] Patient Condition: Good See PACS Report for procedural detail/treatment Drainage Procedure Procedure 1 Imaging Guidance: Fluoroscopy Side: Bilateral Procedure Type: Nephrostomy Procedure: Replacement Georgian: 8 Findings: Left nephrostomy had fallen out and was replaced. Right was due for exchange and therefore was exchanged without difficulty. Jr. Horace,Farooq Lombardo MD Mar 01, 2017 14:23
[2017-03-01] MEDS ORDERED: IOHEXOL 350 MG/ML 50 ML BTL (for RAD DIAG) OTHER ONE (14:58)
[2017-03-01] MEDS ORDERED: MORPHINE SULFATE 4 MG/ML INJ IV PUSH ONE ×2 (15:45→16:30)
--- NOTE | 2017-03-01 16:48 | RADRPT ---
EXAM DATE/TIME: 03/01/2017 13:38 [facility] COMPARISON: CHANGE OF NEPHROSTOMY CATH, LT, December 15, 2016, 8:28. INDICATIONS : Patient with history of hydronephrosis. Has bilateral nephrostomy tubes. The left has fallen out. The right is due for exchange. MEDICAL HISTORY : Pyelonephritis, cervical cancer, hydronephrosis and renal obstruction, HTN. SURGICAL HISTORY : Nephrostomy tube placement, cholecystectomy, appendectomy, colostomy. ENCOUNTER: Subsequent ACUITY: >1 year PAIN SCORE: 9/10 Left flank FLUORO TIME: 2.6 minutes IMAGE SERIES: 6 SEDATION TIME: 30 minutes CONTRAST: 20 cc Omnipaque (iohexol) 350 MEDICATION(S): 1.) 4 mg midazolam (Versed) IV 2.) 200 mcg fentanyl (Sublimaze) IV DEVICE(S): 1.) 8 Yi Expel nephrostomy catheter PROCEDURE : 1. Antegrade pyelogram. 2. Nephrostomy tube exchange. 3. Conscious sedation with continuous EKG and oximetry monitoring. The risks, benefits and alternatives to the procedure were explained and verbal and written consent w as obtained. The site was prepped in sterile fashion. Full sterile technique was used, including ca p, mask, sterile gloves and gown and a large sterile sheet. Hand hygiene and 2% chlorhexidine and/or betadine/alcohol prep was utilized per protocol for cutaneous antisepsis. The skin and subcutaneous tissues were infiltrated with local anesthetic solution. With fluoroscopic guidance antegrade pyelo gram was performed. Injection of contrast through the existing tube shows the tube to be in good position. It enters via a lower pole approach. Over a guidewire the prescribed nephrostomy tube was placed. The exchange was without difficulty. Inj ection of positive contrast demonstrates good position of the catheter within the collecting system. No hematuria seen. The ureter appears patent to the level of the urinary bladder, however, it becomes much smaller in caliber just proximal to the urinary bladder. Conscious sedation was performed with the prescribed dosages and duration as above in the presence of an independent trained radiology nurse to assist in the monitoring of the patient. EKG and oximetry remained stable throughout the procedure. The patient tolerated the procedure well and there were n o complications. The patient was sent to post anesthesia recovery in stable condition. CONCLUSION: Uncomplicated nephrostomy tube exchange as above. Farooq Vu Jr., MD on March 01, 2017 at 16:42 Board Certified Radiologist. This report was verified electronically.
--- NOTE | 2017-03-01 16:51 | RADRPT ---
EXAM DATE/TIME: 03/01/2017 13:38 [facility] COMPARISON: No previous studies available for comparison. INDICATIONS : Patient with history of hydronephrosis.has bilateral nephrostomy tubes. The left tube has fallen out. The right tube is due for exchange. MEDICAL HISTORY : Pyelonephritis, cervical cancer, hydronephrosis and renal obstruction, HTN. SURGICAL HISTORY : Nephrostomy tube placement, cholecystectomy, appendectomy, colostomy. ENCOUNTER: Subsequent ACUITY: >1 year PAIN SCORE: 9/10 Left flank FLUORO TIME: 2.6 IMAGE SERIES: 6 SEDATION TIME: 30 minutes CONTRAST: 20 cc Omnipaque (iohexol) 350 MEDICATION(S): 1.) 4 mg midazolam (Versed) IV 2.) 200 mcg fentanyl (Sublimaze) IV DEVICE(S): 1.) 8 [place] Expel nephrostomy catheter PROCEDURE : 1.Antegrade percutaneous pyelogram. 2. Percutaneous nephrostomy placement. 3. Conscious sedation with continuous EKG and oximetry monitoring. The risks, benefits and alternatives to the procedure were explained and verbal and written consent w as obtained. The site was prepped in sterile fashion. Full sterile technique was used, including ca p, mask, sterile gloves and gown and a large sterile sheet. Hand hygiene and 2% chlorhexidine and/or betadine/alcohol prep was utilized per protocol for cutaneous antisepsis. The skin and subcutaneous tissues were infiltrated with local anesthetic solution. The dermatotomy for the prior nephrostomy tube was injected with contrast. This highlights the tract to the kidney. No significant hydronephrosis observed currently. A Berenstein catheter in conjunction with an angled Glidewire was utilized the gain access to the kidney. A new 8 [place] nephrostomy tube was passed over the wire and coiled within the collecting system. Injection of contrast confirms the appropriate position of the tube. The ureter appears patent down to the urinary bladder. The ureter does taper in caliber just proximal urinary bladder. The patient requested no suturing of the tubes. Conscious sedation was performed with the prescribed dosages and duration as above in the presence of an independent trained radiology nurse to assist in the monitoring of the patient. EKG and oximetry remained stable throughout the procedure. The patient tolerated the procedure well and there were n o complications. The patient was sent to post anesthesia recovery in stable condition. CONCLUSION: Uncomplicated nephrostomy tube placement as above. Farooq Vu Jr., MD on March 01, 2017 at 16:46 Board Certified Radiologist. This report was verified electronically.
[2017-03-07] MEDS ORDERED: GABA800T PO (10:57)
[2017-03-07] MEDS ORDERED: LEVO25TA4 PO (10:57)
[2017-03-07] MEDS ORDERED: PROC10TA PO (10:57)
== END 2017-03-01 16:55 | disposition home or self-care (01) ==
LOC: NEPD 09:17
DX: N99.528 Other complication of incontinent external stoma of urinary tract (principal); I10 Essential (primary) hypertension; Z79.899 Other long term (current) drug therapy; Z72.0 Tobacco use
CPT/HCPCS: 50432; 50435; 80048; 85025; 85610; 96374; 96376; 99152; 99153; 99284; C1729; C1769; J2250; J2270; J3010; Q9967

== ENCOUNTER 2017-05-15 11:30 | Emergency (ER) | payer OTHER ==
[~2017-05-15] VITALS: Ht 152.4 cm; Wt 50.0 kg
[~2017-05-15 11:30] MED LIST changes: -AMLO10 PO; -CLIN1CAP5 PO; -CLON0.1T PO; +GABA800T PO; +LEVO25TA4 PO; -METO50TA PO; -NITR100C4 PO; +NIVO1INJ IM; +PROC10TA PO
[2017-05-15] MEDS ORDERED: IOHEXOL 350 MG/ML 50 ML BTL (for RAD DIAG) OTHER ONE (11:31)
[2017-05-15 11:32] VITALS: BP 165/72; PULSE 81; RESP 18; TEMP 98.6; O2SAT 100
--- NOTE | 2017-05-15 11:36 | PD ---
Physical Exam Date Seen by Provider: May 15, 2017 Time Seen by Provider: 11:35 Narrative 51 yo female here for nephrostomy tube malfunction. Has malfunction to the left. Has one on the right. Per patient she has no insurance at this time and her doctor told her to come here to change them. No pain. Just not draining. Vitals are stable in triage. Awaiting bed placement. Data Data Last Documented VS Vital Signs Date Time Temp Pulse Resp B/P (MAP) Pulse Ox O2 Delivery O2 Flow Rate FiO2 05/15/17 11:32 98.6 81 18 165/72 (103) 100 Room Air [facility] Medical Record Reviewed: Yes Supervised Visit with SHERWIN: No Prieto Lara May 15, 2017 11:36
[2017-05-15] MEDS ORDERED: ZOFR4TAB PO (11:51)
--- NOTE | 2017-05-15 11:51 | PD ---
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 The patient denies fevers, chills, nausea, vomiting, abdominal pain. 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 Last chemotherapy 05/04/17. [facility] is [facility] [place]. PFSH Past Medical History Blood Disorders: No Heart Rhythm Problems: No Cancer: Yes (cervical) Cardiovascular Problems: Yes (htn) High Cholesterol: No Chemotherapy: Yes (last 05/04/17) Chest Pain: No Congestive Heart Failure: No Diminished Hearing: No Endocrine: No Gastrointestinal Disorders: No Genitourinary: No Hypertension: Yes (takes no meds) Immune Disorder: No Implanted Vascular Access Dvce: No Musculoskeletal: No Neurologic: No Psychiatric: No Reproductive: Yes (PID) Respiratory: No Immunizations Current: No Radiation Therapy: Yes ("1 year ago" (stated 07/24/16)) Influenza Vaccination: No ?: Not Menopausal: Yes Past Surgical History Abdominal Surgery: Yes (Colostomy) AICD: No Appendectomy: Yes Body Medical Devices: bilateral nephrostomy tubes Section: Yes Genitourinary Surgery: Yes (Bilateral Neprhostomy tubes) Gynecologic Surgery: Yes (cervcial sleeve, c section) Joint Replacement: No Pacemaker: No Other Surgery: Yes Social History Alcohol Use: No Tobacco Use: Yes (08/09 ppd) Substance Use: No Allergies-Medications (Allergen,Severity, Reaction): Coded Allergies: *MDRO Multi-Drug Resistant Organism (Verified Adverse Reaction, Unknown, 05/15/17) 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 Morphine ER (Morphine Sulfate) 30 Mg Tab 30 Mg PO Q4HR Review of Systems Except as stated in HPI: all other systems reviewed are Neg Physical Exam Narrative GENERAL: Well-nourished, well-developed white female in no acute distress.. SKIN: Focused skin assessment warm/dry. Nephrostomy tubes in place bilaterally without signs of infection. Small amount of pale yellow urine in the collection bag. HEAD: Normocephalic. EYES: No scleral icterus. No injection or drainage. NECK: Supple, trachea midline. No JVD or lymphadenopathy. CARDIOVASCULAR: Regular rate and rhythm without murmurs, gallops, or rubs. RESPIRATORY: Breath sounds clear and equal bilaterally. No accessory muscle use. GASTROINTESTINAL: Abdomen soft, non-tender, nondistended. No suprapubic tenderness. Active bowel sounds. MUSCULOSKELETAL: No cyanosis, or edema. Patient is observed to walk with a normal gait. BACK: Nontender without obvious deformity. No CVA tenderness. Data Data Last Documented VS Vital Signs Date Time Temp Pulse Resp B/P (MAP) Pulse Ox O2 Delivery O2 Flow Rate FiO2 05/15/17 17:50 05/15/17 16:26 73 12 94 Room Air 05/15/17 11:32 98.6 Orders Orders Complete Blood Count With Diff (05/15/17 12:21) Comprehensive Metabolic Panel (05/15/17 12:21) Coag Profile (05/15/17 12:21) Urinalysis - C+S If Indicated (05/15/17 12:21) NPO (05/15/17 13:17) Urine Culture (05/15/17 12:45) Ceftriaxone Inj (Rocephin Inj) (05/15/17 14:15) Fentanyl Inj (Fentanyl Inj) (05/15/17 15:31) Midazolam Inj (Versed Inj) (05/15/17 15:31) Fentanyl Inj (Fentanyl Inj) (05/15/17 15:54) Midazolam Inj (Versed Inj) (05/15/17 15:54) Hydromorphone Pf Inj (Dilaudid Pf Inj) (05/15/17 15:59) Change Of Nephrostomy Cath (05/15/17 12:34) Antegrade Pyelogram (05/15/17 ) Change Of Nephrostomy Cath (05/15/17 ) Antegrade Pyelogram (05/15/17 ) Iohexol 350 Inj (Omnipaque 350 Inj) (05/15/17 11:31) Ed Discharge Order (05/15/17 17:20) Labs Laboratory Tests Test 05/15/17 12:10 05/15/17 12:45 White Blood Count 3.4 TH/MM3 Red Blood Count 2.91 MIL/MM3 Hemoglobin 8.7 GM/DL Hematocrit 25.9 % Mean Corpuscular Volume 89.3 FL Mean Corpuscular Hemoglobin 29.9 PG Mean Corpuscular Hemoglobin Concent 33.5 % Red Cell Distribution Width 15.3 % Platelet Count 289 TH/MM3 Mean Platelet Volume 6.3 FL Neutrophils (%) (Auto) 56.2 % Lymphocytes (%) (Auto) 23.9 % Monocytes (%) (Auto) 8.9 % Eosinophils (%) (Auto) 10.3 % Basophils (%) (Auto) 0.7 % Neutrophils # (Auto) 1.9 TH/MM3 Lymphocytes # (Auto) 0.8 TH/MM3 Monocytes # (Auto) 0.3 TH/MM3 Eosinophils # (Auto) 0.3 TH/MM3 Basophils # (Auto) 0.0 TH/MM3 CBC Comment DIFF FINAL Differential Comment Prothrombin Time 10.2 SEC Prothromb Time International Ratio 0.9 RATIO Activated Partial Thromboplast Time 26.8 SEC Blood Urea Nitrogen 12 MG/DL Creatinine 1.00 MG/DL Random Glucose 80 MG/DL Total Protein 6.6 GM/DL Albumin 3.2 GM/DL Calcium Level 8.5 MG/DL Alkaline Phosphatase 91 U/L Aspartate Amino Transf (AST/SGOT) 16 U/L Alanine Aminotransferase (ALT/SGPT) 14 U/L Total Bilirubin 0.2 MG/DL Sodium Level 143 MEQ/L Potassium Level 3.8 MEQ/L Chloride Level 110 MEQ/L Carbon Dioxide Level 25.7 MEQ/L Anion Gap 7 MEQ/L Estimat Glomerular Filtration Rate 59 ML/MIN Urine Color YELLOW Urine Turbidity CLOUDY Urine pH 8.0 Urine Specific [place] 1.012 Urine Protein 100 mg/dL Urine Glucose (UA) NEG mg/dL Urine Ketones NEG mg/dL Urine Occult Blood MOD Urine Nitrite NEG Urine Bilirubin NEG Urine Urobilinogen LESS THAN 2.0 MG/DL Urine Leukocyte Esterase LARGE Urine RBC 166 /hpf Urine WBC 48 /hpf Urine Squamous Epithelial Cells <1 /hpf Urine Triple Phosphate Crystals OCC /hpf Urine Amorphous Sediment RARE Urine Bacteria MOD /hpf Microscopic Urinalysis Comment CULTURE INDICATED MDM Medical Decision Making Medical Screen Exam Complete: Yes Emergency Medical Condition: Yes Differential Diagnosis 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 The patient denies fevers, chills, nausea, vomiting, abdominal pain. 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 Last chemotherapy 05/04/17. She is followed by [facility] in [place]. Afebrile on presentation. Physical exam is reassuring. UA with large leukocyte esterase, 40 wbc's, moderate bacteria. Patient was administered a gram of Rocephin in the ED. I spoke with IR who states that the patient was scheduled for bilateral nephrostomy tube placement on outpatient basis. They will take her over today to perform the procedure. Patient returned from IR, was monitored in the ED until she was alert, awake, demonstrated a normal gait. She is prescribed Keflex 500 twice a day 7 days. She has follow-up with her primary specialist in [place] this week. She is stable and discharged home. Diagnosis Primary Impression: Displacement of nephrostomy tube Additional Impression: Bacteriuria Referrals: James Simms MD Patient Instructions: General Instructions, Urinary Tract Infection in Women ( ED) Additional Instructions: Rest, hydrate. Return to normal, gentle activity as tolerated. Take antibiotics as prescribed. Follow up with you primary provider as well as Dr. Smims. Return to the ED for any urgent or emergent medical condition. Scripts Cephalexin (Keflex) 500 Mg Cap 500 MG PO Q12H for Infection for 7 Days, #14 CAP 0 Refills Prov: Cristal Burnette MD 05/15/17 Disposition: 01 DISCHARGE HOME Condition: Stable Shyanne Galo May 15, 2017 11:51
--- NOTE | 2017-05-15 12:21 | PD ---
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 Time Seen by Provider: 11:50 Travel History International Travel<30 days: No Contact w/Intl Traveler<30days: No Traveled to known affect area: No PFSH Past Medical History Blood Disorders: No Heart Rhythm Problems: No Cancer: Yes (cervical) Cardiovascular Problems: Yes (htn) High Cholesterol: No Chemotherapy: Yes (last 05/04/17) Chest Pain: No Congestive Heart Failure: No Diminished Hearing: No Endocrine: No Gastrointestinal Disorders: No Genitourinary: No Hypertension: Yes (takes no meds) Immune Disorder: No Implanted Vascular Access Dvce: No Musculoskeletal: No Neurologic: No Psychiatric: No Reproductive: Yes (PID) Respiratory: No Immunizations Current: No Radiation Therapy: Yes ("1 year ago" (stated 07/24/16)) Influenza Vaccination: No ?: Not Menopausal: Yes Past Surgical History Abdominal Surgery: Yes (Colostomy) AICD: No Appendectomy: Yes Body Medical Devices: bilateral nephrostomy tubes Section: Yes Genitourinary Surgery: Yes (Bilateral Neprhostomy tubes) Gynecologic Surgery: Yes (cervcial sleeve, c section) Joint Replacement: No Pacemaker: No Other Surgery: Yes Social History Alcohol Use: No Tobacco Use: Yes (08/09 ppd) Substance Use: No Allergies-Medications (Allergen,Severity, Reaction): Coded Allergies: *MDRO Multi-Drug Resistant Organism (Verified Adverse Reaction, Unknown, 05/15/17) 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 Morphine ER (Morphine Sulfate) 30 Mg Tab 30 Mg PO Q4HR Data Data Last Documented VS Vital Signs Date Time Temp Pulse Resp B/P (MAP) Pulse Ox O2 Delivery O2 Flow Rate FiO2 05/15/17 11:32 98.6 81 18 165/72 (103) 100 Room Air Orders Orders Invasive Rad Dept Consult (05/15/17 ) Complete Blood Count With Diff (10/10/17 12:21) Comprehensive Metabolic Panel (05/15/17 12:21) Coag Profile (05/15/17 12:21) Urinalysis - C+S If Indicated (05/15/17 12:21) Shyanne Galo May 15, 2017 12:21
[2017-05-15 13:29] LABS: AUTOMATED NEUTROPHIL # 1.9 TH/MM3 (1.8-7.7); BASOPHIL % 0.7 % (0.0-2.0); EOSINOPHIL # 0.3 TH/MM3 (0-0.4); EOSINOPHIL % 10.3 % (0.0-4.0); HEMATOCRIT 25.9 % (35.0-46.0); HEMO FLAGS DIFF FINAL; LYMPH % 23.9 % (9.0-44.0); LYMPHOCYTE # 0.8 TH/MM3 (1.0-4.8); MEAN CELL VOLUME 89.3 FL (80.0-100.0); MEAN CORPUSCULAR HEMOGLOBIN 29.9 PG (27.0-34.0); MEAN CORPUSCULAR HGB CONC 33.5 % (32.0-36.0); MONO % 8.9 % (0.0-8.0); NEUT % 56.2 % (16.0-70.0); PLATELET COUNT 289 TH/MM3 (150-450); RED BLOOD COUNT 2.91 MIL/MM3 (4.00-5.30); RED CELL DISTRIBUTION WIDTH 15.3 % (11.6-17.2); WHITE BLOOD COUNT 3.4 TH/MM3 (4.0-11.0)
[2017-05-15 13:37] LABS: APTT (PATIENT) 26.8 SEC (24.3-30.1); INTERNATIONAL NORMALIZED RATIO 0.9 RATIO; PROTHROMBIN TIME - PATIENT 10.2 SEC (9.8-11.6)
[2017-05-15 13:49] LABS: ANION GAP 7 MEQ/L (5-15); AST (GOT) 16 U/L (15-37); BICARBONATE 25.7 MEQ/L (21.0-32.0); BLOOD UREA NITROGEN 12 MG/DL (7-18); CHLORIDE 110 MEQ/L (98-107); GLOMERULAR FILTRATION RATE 59 ML/MIN (>89); POTASSIUM 3.8 MEQ/L (3.5-5.1); SODIUM (NA) 143 MEQ/L (136-145)
[2017-05-15 13:50] LABS: BACTERIA, URINE MOD /hpf; BLOOD, URINE MOD (NEG); COMMENT (UR) CULTURE INDICATED; CULTURE IF INDICATED CULTURE INDICATED; GLUCOSE,URINE NEG (NEG); KETONE, URINE NEG (NEG); NITRITE,URINE NEG (NEG); SQUAMOUS EPITHELIAL CELL URINE <1 /hpf (0-5); TRIPLE PHOSPHATE CRYSTAL,URINE OCC /hpf; URINE COLOR YELLOW (YELLW/STRAW)
[2017-05-15 13:52] LABS: ALKALINE PHOSPHATASE 91 U/L (45-117); ALT (GPT) 14 U/L (10-53); TOTAL BILIRUBIN ADULT 0.2 MG/DL (0.2-1.0)
[2017-05-15] MEDS ORDERED: cefTRIAXone INJ 1,000 MG in SODIUM CHLORIDE 0.9% INJ 100 ML IV ONE (14:15)
[2017-05-15] MEDS ORDERED: MIDAZOLAM HCL 2 MG/2 ML VIAL ONE ×2 (15:31→15:54)
[2017-05-15] MEDS ORDERED: HYDROmorphone HCL PF 2 MG/ML VIAL ONE (15:59)
[2017-05-15 16:26] VITALS: BP 110/67; PULSE 73; RESP 12; O2SAT 94
--- NOTE | 2017-05-15 16:43 | RADRPT ---
EXAM DATE/TIME: 05/15/2017 14:55 [facility] COMPARISON: CHANGE OF NEPHROSTOMY CATH, RT, March 01, 2017, 13:38. INDICATIONS : Patient with a history of bilateral hydronephrosis, needs bilateral nephrostomy tubes exchanged. MEDICAL HISTORY : Pyelonephritis, cervical cancer, hydronephrosis and renal obstruction, HTN SURGICAL HISTORY : Cholecystectomy, Appendectomy, Colostomy ENCOUNTER: Subsequent ACUITY: >1 year PAIN SCORE: 9/10 LOCATION: Bilateral flank FLUORO TIME: 3.4 minutes IMAGE SERIES: 2 SEDATION TIME: 30 minutes CONTRAST: 10 cc Omnipaque (iohexol) 350 MEDICATION(S): 1.) 3 mg midazolam (Versed) IV 2.) 150 mcg fentanyl (Sublimaze) IV 3.) 2 mg hydromorphone (Dilaudid) IV DEVICE(S): 1.) 8 Citizen [place] Expel nephrostomy catheter PROCEDURE : 1. Antegrade pyelogram. 2. Nephrostomy tube exchange. 3. Conscious sedation with continuous EKG and oximetry monitoring. The risks, benefits and alternatives to the procedure were explained and verbal and written consent w as obtained. The site was prepped in sterile fashion. Full sterile technique was used, including ca p, mask, sterile gloves and gown and a large sterile sheet. Hand hygiene and 2% chlorhexidine and/or betadine/alcohol prep was utilized per protocol for cutaneous antisepsis. The skin and subcutaneous tissues were infiltrated with local anesthetic solution. With fluoroscopic guidance antegrade pyelo gram was performed. 8 Over a guidewire the prescribed nephrostomy tube was placed. Injection of positive contrast demonstra johny good position of the catheter within the collecting system. Conscious sedation was performed with the prescribed dosages and duration as above in the presence of an independent trained radiology nurse to assist in the monitoring of the patient. EKG and oximetry remained stable throughout the procedure. The patient tolerated the procedure well and there were n o complications. The patient was sent to post anesthesia recovery in stable condition. CONCLUSION: Uncomplicated nephrostomy tube exchange as above. Scott Ospina MD on May 15, 2017 at 16:41 Board Certified Radiologist. This report was verified electronically.
--- NOTE | 2017-05-15 16:44 | RADRPT ---
EXAM DATE/TIME: 05/15/2017 14:55 [facility] COMPARISON: CHANGE OF NEPHROSTOMY CATH, LT, December 15, 2016, 8:28. INDICATIONS : Patient with a history of bilateral hydronephrosis, needs bilateral nephrostomy tubes exchanged. MEDICAL HISTORY : Pyelonephritis, cervical cancer, hydronephrosis and renal obstruction, HTN SURGICAL HISTORY : Cholecystectomy, Appendectomy, Colostomy ENCOUNTER: Subsequent ACUITY: >1 year PAIN SCORE: 9/10 LOCATION: Bilateral flank FLUORO TIME: 3.4 minutes IMAGE SERIES: 2 SEDATION TIME: 30 minutes CONTRAST: 10 cc Omnipaque (iohexol) 350 MEDICATION(S): 1.) 3 mg midazolam (Versed) IV 2.) 150 mcg fentanyl (Sublimaze) IV 3.) 2 mg hydromorphone (Dilaudid) IV DEVICE(S): 1.) 8 [place] Expel nephrostomy catheter PROCEDURE : 1. Antegrade pyelogram. 2. Nephrostomy tube exchange. 3. Conscious sedation with continuous EKG and oximetry monitoring. The risks, benefits and alternatives to the procedure were explained and verbal and written consent w as obtained. The site was prepped in sterile fashion. Full sterile technique was used, including ca p, mask, sterile gloves and gown and a large sterile sheet. Hand hygiene and 2% chlorhexidine and/or betadine/alcohol prep was utilized per protocol for cutaneous antisepsis. The skin and subcutaneous tissues were infiltrated with local anesthetic solution. With fluoroscopic guidance antegrade pyelo gram was performed. Over a guidewire the prescribed nephrostomy tube was placed. Injection of positive contrast demonstra johny good position of the catheter within the collecting system. Conscious sedation was performed with the prescribed dosages and duration as above in the presence of an independent trained radiology nurse to assist in the monitoring of the patient. EKG and oximetry remained stable throughout the procedure. The patient tolerated the procedure well and there were n o complications. The patient was sent to post anesthesia recovery in stable condition. CONCLUSION: Uncomplicated nephrostomy tube exchange as above. Scott Ospina MD on May 15, 2017 at 16:42 Board Certified Radiologist. This report was verified electronically.
[2017-05-15] MEDS ORDERED: CEPH-460 PO (17:22)
== END 2017-05-15 18:15 | disposition home or self-care (01) ==
LOC: NEPC 11:30
DX: T85.628A Displacement of other specified internal prosthetic devices, implants and grafts, initial encounter (principal); R82.71 Bacteriuria; N82.0 Vesicovaginal fistula; B96.4 Proteus (mirabilis) (morganii) as the cause of diseases classified elsewhere; B96.89 Other specified bacterial agents as the cause of diseases classified elsewhere; I10 Essential (primary) hypertension; F17.200 Nicotine dependence, unspecified, uncomplicated; Z85.41 Personal history of malignant neoplasm of cervix uteri; Z87.42 Personal history of other diseases of the female genital tract
CPT/HCPCS: 50435; 80053; 81001; 85025; 85610; 85730; 87077; 87086; 87186; 96365; 96375; 99152; 99153; 99284; C1729; C1769; J0696; J1170; J2250; J3010; Q9967

== ENCOUNTER 2017-07-21 15:22 | Observation (INO) | payer OTHER ==
[~2017-07-21] VITALS: Ht 160 cm; Wt 49.0 kg
[2017-07-21] VITALS (9 sets, daily range): BP systolic 201–222; BP diastolic 94–107; PULSE 70–91; RESP 18–20; TEMP 99.4; O2SAT 94–98
[~2017-07-21 15:22] MED LIST changes: +CEPH-460 PO; -GABA800T PO; -NIVO1INJ IM; -PROC10TA PO; +ZOFR4TAB PO
[2017-07-21] MEDS ORDERED: SODIUM CHLOR 0.9% 1000 ML INJ 1,000 ML IV SCH (15:48)
[2017-07-21] MEDS ORDERED: PROMETHAZINE INJ 25 MG/ML VIAL IM ONE (16:00)
[2017-07-21] MEDS ORDERED: MORPHINE SULFATE 4 MG/ML INJ IV PUSH ONE (16:00)
[2017-07-21] MEDS ORDERED: MORPHINE SULFATE 8 MG/ML INJ IV PUSH ONE (16:00)
--- NOTE | 2017-07-21 16:00 | PD ---
HPI Chief Complaint: GI Complaint Time Seen by Provider: 15:36 Travel History International Travel<30 days: No Contact w/Intl Traveler<30days: No Traveled to known affect area: No History of Present Illness HPI 52-year-old female that presents to the ED for lower abdominal pain as well as nausea and vomiting. Patient has a history of cervical cancer as well as nephrostomy tubes bilaterally. Patient states that she's getting chemoradiation and [facility]. Patient last had chemotherapy about 2 weeks ago. She no longer has radiation. Per patient she takes heavy narcotics including fentanyl and morphine which are prescribed to her by her doctor. She for she ran out of them on and she was meant to have a refill on Sunday but she could not go to the doctor to get the refills secondary to her nausea and vomiting which started on . She states that she is unable to keep anything down including her medications. She denies any injuries or trauma. Per patient the pelvic pain is normal for her and has no change in consistency. She denies any trauma or injury at this time. Denies any blood in the vomit. She is actively vomiting on the room during my examination. She denies any fevers chills or sweats. No chest pain or shortness of breath. Pain per patient his significant 10 out of 10. Denies any urinary issues or bowel movement issues. PFSH Past Medical History Blood Disorders: No Heart Rhythm Problems: No Cancer: Yes (cervical) Cardiovascular Problems: Yes (htn) High Cholesterol: No Chemotherapy: Yes (last 05/04/17) Chest Pain: No Congestive Heart Failure: No Diminished Hearing: No Endocrine: No Gastrointestinal Disorders: No Genitourinary: No Hypertension: Yes (takes no meds) Immune Disorder: No Implanted Vascular Access Dvce: No Musculoskeletal: No Neurologic: No Psychiatric: No Reproductive: Yes (PID) Respiratory: No Immunizations Current: No Radiation Therapy: Yes ("1 year ago" (stated 07/24/16)) Thyroid Disease: Yes ?: Not Menopausal: Yes Past Surgical History Abdominal Surgery: Yes (Colostomy) AICD: No Appendectomy: Yes Body Medical Devices: bilateral nephrostomy tubes Section: Yes Genitourinary Surgery: Yes (Bilateral Neprhostomy tubes) Gynecologic Surgery: Yes (cervcial sleeve, c section) Joint Replacement: No Pacemaker: No Other Surgery: Yes Social History Alcohol Use: No Tobacco Use: No Substance Use: No Allergies-Medications (Allergen,Severity, Reaction): Coded Allergies: *MDRO Multi-Drug Resistant Organism (Verified Adverse Reaction, Unknown, 07/21/17) 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 Morphine ER (Morphine Sulfate) 30 Mg Tab 30 Mg PO Q4HR Review of Systems Except as stated in HPI: all other systems reviewed are Neg Physical Exam Narrative GENERAL: SKIN: Warm and dry. HEAD: Atraumatic. Normocephalic. EYES: Pupils equal and round. No scleral icterus. No injection or drainage. ENT: No nasal bleeding or discharge. Mucous membranes pink and moist. Tongue is midline. No uvula deviation. NECK: Trachea midline. No JVD. CARDIOVASCULAR: Regular rate and rhythm. No murmurs, S3, S4. RESPIRATORY: No accessory muscle use. Clear to auscultation. Breath sounds equal bilaterally. GASTROINTESTINAL: Abdomen soft, non-tender, nondistended. Hepatic and splenic margins not palpable. MUSCULOSKELETAL: Extremities without clubbing, cyanosis, or edema. No obvious deformities. Full range of motion of the upper and lower extremities bilaterally. 2+ pulses bilaterally. NEUROLOGICAL: Awake and alert. No obvious cranial nerve deficits. Motor grossly within normal limits. Five out of 5 muscle strength in the arms and legs. Normal speech. PSYCHIATRIC: Appropriate mood and affect; insight and judgment normal. Data Data Last Documented VS Vital Signs Date Time Temp Pulse Resp B/P (MAP) Pulse Ox O2 Delivery O2 Flow Rate FiO2 07/21/17 16:39 20 98 Room Air 07/21/17 15:35 99.4 91 Orders Orders Complete Blood Count With Diff (07/21/17 15:39) Comprehensive Metabolic Panel (07/21/17 15:39) Magnesium (Mg) (07/21/17 15:39) Iv Access Insert/Monitor (07/21/17 15:39) Ecg Monitoring (07/21/17 15:39) Oximetry (07/21/17 15:39) Drug Screen, Random Urine (07/21/17 15:39) Promethazine Inj (Phenergan Inj) (07/21/17 16:00) Lactic Acid (07/21/17 15:48) Morphine Inj (Morphine Inj) (07/21/17 16:00) Sodium Chlor 0.9% 1000 Ml Inj (Ns 1000 M (07/21/17 15:48) Morphine Inj (Morphine Inj) (07/21/17 16:00) Urinalysis - C+S If Indicated (07/21/17 15:59) Metoclopramide Inj (Reglan Inj) (07/21/17 16:15) Abdomen, Kub Only (07/21/17 ) Hydromorphone Pf Inj (Dilaudid Pf Inj) (07/21/17 17:30) Fentanyl Inj (Fentanyl Inj) (07/21/17 18:00) Admit Order (Ed Use Only) (07/21/17 18:16) Invasive Rad Dept Consult (07/21/17 ) Labs Laboratory Tests Test 07/21/17 13:50 07/21/17 16:35 White Blood Count 6.8 TH/MM3 Red Blood Count 4.65 MIL/MM3 Hemoglobin 14.2 GM/DL Hematocrit 41.1 % Mean Corpuscular Volume 88.4 FL Mean Corpuscular Hemoglobin 30.5 PG Mean Corpuscular Hemoglobin Concent 34.5 % Red Cell Distribution Width 14.5 % Platelet Count 366 TH/MM3 Mean Platelet Volume 6.4 FL Neutrophils (%) (Auto) 85.5 % Lymphocytes (%) (Auto) 9.4 % Monocytes (%) (Auto) 3.9 % Eosinophils (%) (Auto) 0.1 % Basophils (%) (Auto) 1.1 % Neutrophils # (Auto) 5.8 TH/MM3 Lymphocytes # (Auto) 0.6 TH/MM3 Monocytes # (Auto) 0.3 TH/MM3 Eosinophils # (Auto) 0.0 TH/MM3 Basophils # (Auto) 0.1 TH/MM3 CBC Comment DIFF FINAL Differential Comment Blood Urea Nitrogen 29 MG/DL Creatinine 1.27 MG/DL Random Glucose 119 MG/DL Total Protein 8.6 GM/DL Albumin 4.1 GM/DL Calcium Level 9.4 MG/DL Magnesium Level 1.9 MG/DL Alkaline Phosphatase 109 U/L Aspartate Amino Transf (AST/SGOT) 22 U/L Alanine Aminotransferase (ALT/SGPT) 17 U/L Total Bilirubin 0.4 MG/DL Sodium Level 138 MEQ/L Potassium Level 3.2 MEQ/L Chloride Level 103 MEQ/L Carbon Dioxide Level 27.4 MEQ/L Anion Gap 8 MEQ/L Estimat Glomerular Filtration Rate 45 ML/MIN MDM Medical Decision Making Medical Screen Exam Complete: Yes Emergency Medical Condition: Yes Medical Record Reviewed: Yes Interpretation(s) CBC & BMP Diagram 07/21/17 13:50 Total Protein 8.6 H, Albumin 4.1, Calcium Level 9.4, Magnesium Level 1.9, Alkaline Phosphatase 109, Aspartate Amino Transf (AST/SGOT) 22, Alanine Aminotransferase (ALT/SGPT) 17, Total Bilirubin 0.4 Last Impressions Abdomen X-Ray 07/21/17 0000 Signed Impressions: Service Date/Time: Friday, July 21, 2017 16:31 - CONCLUSION: 1. Bilateral nephrostomy tubes appear to be stable in position. 2. Ostomy device in the left mid to lower abdomen without findings of bowel obstruction. Ceferino Rosario MD Differential Diagnosis Nausea and vomiting versus medication side effect versus withdrawal symptoms versus acute on chronic pain versus chronic pain versus cancer pain versus intractable nausea Narrative Course 52-year-old female that presents to the ED for evaluation of nausea and vomiting. Patient was properly examined and was found to have signs and symptoms concerning for nausea and vomiting. Patient actively vomiting on my examination. She does appear to have significant history of cervical cancer and taking heavy narcotics. The review patient's medical records as well as the force and she does take fentanyl and morphine and is due to have her refill per the records on Sunday or Sunday. At this time labs and imaging were ordered. I personally asked the patient what works for her for her nausea. Per patient Zofran does not work for her which was given to her by either back. She requested specifically Phenergan. She was given a dose of these IM. She was given some pain medication as well as fluids. Labs were ordered. Labs showed slight acute kidney injury but otherwise unremarkable. Patient still very uncomfortable on exam. Patient still having dry heaving and throwing up. My attending Dr. Mohamud evaluated the patient with me and agrees with plan. She did order fentanyl for the patient to help with her pain. Patient has been given phenergan, zofran (by EVAC) and reglan with no relief. Morphine given as well by me with no relief. At this time recommendations for admission for intractable pain for pain management as well as for antiemetics. Dr. Cornejo from interventional radiology came and evaluated the patient as the patient has been having issues with the nephrostomy tube on the left side. Is not draining anymore. He attempted to try to fix the tubing that he was unsuccessful. Unfortunately he states that the patient has to be put under to have the tube exchanged as patient does not want to do it without proper sedation and states this can be done inpatient tomorrow. Recommendation is for admission. Patient will be admitted. DESMOND was paged and Dr Riggins agrees to obs admission. Diagnosis Primary Impression: Intractable abdominal pain Additional Impressions: Intractable nausea and vomiting Qualified Codes: R11.2 - Nausea with vomiting, unspecified Displacement of nephrostomy tube Admitting Information Admitting Physician Requests: Prieto Schmitt Jul 21, 2017 16:00
[2017-07-21] MEDS ORDERED: METOCLOPRAMIDE HCL 10 MG/2 ML VIAL IV PUSH ONE (16:15)
[2017-07-21 16:19] LABS: AUTOMATED NEUTROPHIL # 5.8 TH/MM3 (1.8-7.7); BASOPHIL # 0.1 TH/MM3 (0-0.2); BASOPHIL % 1.1 % (0.0-2.0); EOSINOPHIL % 0.1 % (0.0-4.0); HEMATOCRIT 41.1 % (35.0-46.0); HEMO FLAGS DIFF FINAL; LYMPH % 9.4 % (9.0-44.0); LYMPHOCYTE # 0.6 TH/MM3 (1.0-4.8); MEAN CELL VOLUME 88.4 FL (80.0-100.0); MEAN CORPUSCULAR HEMOGLOBIN 30.5 PG (27.0-34.0); MEAN CORPUSCULAR HGB CONC 34.5 % (32.0-36.0); MONO % 3.9 % (0.0-8.0); NEUT % 85.5 % (16.0-70.0); PLATELET COUNT 366 TH/MM3 (150-450); RED BLOOD COUNT 4.65 MIL/MM3 (4.00-5.30); RED CELL DISTRIBUTION WIDTH 14.5 % (11.6-17.2); WHITE BLOOD COUNT 6.8 TH/MM3 (4.0-11.0)
[2017-07-21 16:39] LABS: ALT (GPT) 17 U/L (10-53); ANION GAP 8 MEQ/L (5-15); AST (GOT) 22 U/L (15-37); BICARBONATE 27.4 MEQ/L (21.0-32.0); BLOOD UREA NITROGEN 29 MG/DL (7-18); CHLORIDE 103 MEQ/L (98-107); GLOMERULAR FILTRATION RATE 45 ML/MIN (>89); MAGNESIUM 1.9 MG/DL (1.5-2.5); POTASSIUM 3.2 MEQ/L (3.5-5.1); SODIUM (NA) 138 MEQ/L (136-145)
[2017-07-21 16:41] LABS: ALKALINE PHOSPHATASE 109 U/L (45-117); TOTAL BILIRUBIN ADULT 0.4 MG/DL (0.2-1.0)
--- NOTE | 2017-07-21 16:48 | RADRPT ---
EXAM DATE/TIME: 07/21/2017 16:31 [facility] COMPARISON: CHANGE OF NEPHROSTOMY CATH, LT, May 15, 2017, 14:55. CHANGE OF NEPHROSTOMY CATH, RT, May 15, 2017, 14:55. INDICATIONS : Obstruction. MEDICAL HISTORY : Pyelonephritis, cervical cancer, hydronephrosis and renal obstruction, HTN SURGICAL HISTORY : , Cholecystectomy, Appendectomy, Colostomy ENCOUNTER: Initial ACUITY: 3 days PAIN SCORE: 8/10 LOCATION: Bilateral Lower abdomen FINDINGS: Supine view of the abdomen was performed. The abdominal bowel gas pattern is normal. No abnormal ma sses, calcifications, or organomegaly is seen. The osseous structures are unremarkable. Ostomy devic e in the left lower abdomen. Bilateral nephrostomy tubes appear to be stable in position. CONCLUSION: 1. Bilateral nephrostomy tubes appear to be stable in position. 2. Ostomy device in the left mid to lower abdomen without findings of bowel obstruction. Ceferino Rosario MD on July 21, 2017 at 16:43 Board Certified Radiologist. This report was verified electronically.
[2017-07-21] MEDS ORDERED: HYDROmorphone HCL PF 2 MG/ML VIAL IV PUSH ONE (17:30)
--- NOTE | 2017-07-21 18:02 | PD ---
Physical Exam Narrative I, Dr. Mohamud, have reviewed the advance practice practitioner's documentation and am in agreement, met with the patient face to face, made the diagnosis, and the medical decision making was done by me. *My assessment and Findings: Pain from cervical cancer vs. intractable vomiting 52yo F with cervical cancer here with pain and vomiting. Said she has been feeling very ill and was not able to go to pharmacy to crop picker her pain medications. Has not been able to tolerate PO for at least 3 days. Pt follows with oncologist in [place] and last had chemo around 2 weeks ago. Labs reviewed, no leukocytosis. Mild hypokalemia, elevated BUN/creatinine consistent with dehydration. UA showed large leukocyte. Pt has bilateral nephrostomy tubes because the cancer was causing obstruction but her left nephrostomy tube has not been draining. Dr. Rosario form interventional radiology came by to evaluate the patient. Pt given NS IVF, multiple doses of pain and antiemetic. Will admit for dehydration, left nephrostomy tube malfunction, intractable pain and nausea. Data Data Last Documented VS Vital Signs Date Time Temp Pulse Resp B/P (MAP) Pulse Ox O2 Delivery O2 Flow Rate FiO2 07/21/17 16:39 20 98 Room Air 07/21/17 15:35 99.4 91 Orders Orders Complete Blood Count With Diff (07/21/17 15:39) Comprehensive Metabolic Panel (07/21/17 15:39) Magnesium (Mg) (07/21/17 15:39) Iv Access Insert/Monitor (07/21/17 15:39) Ecg Monitoring (07/21/17 15:39) Oximetry (07/21/17 15:39) Drug Screen, Random Urine (07/21/17 15:39) Promethazine Inj (Phenergan Inj) (07/21/17 16:00) Lactic Acid (07/21/17 15:48) Morphine Inj (Morphine Inj) (07/21/17 16:00) Sodium Chlor 0.9% 1000 Ml Inj (Ns 1000 M (07/21/17 15:48) Morphine Inj (Morphine Inj) (07/21/17 16:00) Urinalysis - C+S If Indicated (07/21/17 15:59) Metoclopramide Inj (Reglan Inj) (07/21/17 16:15) Abdomen, Kub Only (07/21/17 ) Hydromorphone Pf Inj (Dilaudid Pf Inj) (07/21/17 17:30) Fentanyl Inj (Fentanyl Inj) (07/21/17 18:00) Admit Order (Ed Use Only) (07/21/17 18:16) Labs Laboratory Tests Test 07/21/17 13:50 White Blood Count 6.8 TH/MM3 Red Blood Count 4.65 MIL/MM3 Hemoglobin 14.2 GM/DL Hematocrit 41.1 % Mean Corpuscular Volume 88.4 FL Mean Corpuscular Hemoglobin 30.5 PG Mean Corpuscular Hemoglobin Concent 34.5 % Red Cell Distribution Width 14.5 % Platelet Count 366 TH/MM3 Mean Platelet Volume 6.4 FL Neutrophils (%) (Auto) 85.5 % Lymphocytes (%) (Auto) 9.4 % Monocytes (%) (Auto) 3.9 % Eosinophils (%) (Auto) 0.1 % Basophils (%) (Auto) 1.1 % Neutrophils # (Auto) 5.8 TH/MM3 Lymphocytes # (Auto) 0.6 TH/MM3 Monocytes # (Auto) 0.3 TH/MM3 Eosinophils # (Auto) 0.0 TH/MM3 Basophils # (Auto) 0.1 TH/MM3 CBC Comment DIFF FINAL Differential Comment Blood Urea Nitrogen 29 MG/DL Creatinine 1.27 MG/DL Random Glucose 119 MG/DL Total Protein 8.6 GM/DL Albumin 4.1 GM/DL Calcium Level 9.4 MG/DL Magnesium Level 1.9 MG/DL Alkaline Phosphatase 109 U/L Aspartate Amino Transf (AST/SGOT) 22 U/L Alanine Aminotransferase (ALT/SGPT) 17 U/L Total Bilirubin 0.4 MG/DL Sodium Level 138 MEQ/L Potassium Level 3.2 MEQ/L Chloride Level 103 MEQ/L Carbon Dioxide Level 27.4 MEQ/L Anion Gap 8 MEQ/L Estimat Glomerular Filtration Rate 45 ML/MIN [facility] Supervised Visit with SHERWIN: Yes Diagnosis Primary Impression: Dehydration Additional Impression: Intractable nausea and vomiting Qualified Codes: R11.2 - Nausea with vomiting, unspecified Admitting Information Admitting Physician Requests: Observation Scripts Ciprofloxacin (Ciprofloxacin) 500 Mg Tab 500 MG PO BID for Infection, #14 TAB 0 Refills Prov: Juwan Wallace DO 07/23/17 Areli Mohamud DO Jul 21, 2017 18:02
[2017-07-21] MEDS ORDERED: LABETALOL HCL 100 MG/20 ML VIAL IV PUSH ONE (19:00)
[2017-07-21] MEDS ORDERED: MORPHINE SULFATE 2 MG/ML INJ IM PRN (19:15)
[2017-07-21] MEDS ORDERED: MAGNESIUM HYDROXIDE SUSP 30 ML CUP PO PRN (19:15)
[2017-07-21] MEDS ORDERED: BISACODYL 10 MG SUPP RECTAL PRN (19:15)
[2017-07-21] MEDS ORDERED: SENNOSIDES 8.6 MG TAB PO PRN (19:15)
[2017-07-21] MEDS ORDERED: SODIUM CHLORIDE 0.9% FLUSH 10 ML FLUSH IV FLUSH PRN (19:15)
[2017-07-21] MEDS ORDERED: METOCLOPRAMIDE HCL 10 MG/2 ML VIAL IV PUSH PRN (19:15)
[2017-07-21] MEDS ORDERED: NALOXONE HCL 0.4 MG/ML AMP IV PUSH PRN ×2 (19:15)
[2017-07-21] MEDS ORDERED: NON-FORMULARY DRUG (Ondansetron (Zofran) 4 MG) PO PRN (19:15)
[2017-07-21] MEDS ORDERED: LACTULOSE SYRUP 20 GM/30 ML CUP PO PRN (19:15)
[2017-07-21] MEDS ORDERED: ACETAMINOPHEN 325 MG TAB PO PRN (19:15)
[2017-07-21] MEDS ORDERED: PROMETHAZINE HCL 25 MG TAB PO PRN (19:15)
--- NOTE | 2017-07-21 19:43 | HHI.HP ---
[facility] Chris White MD Admission Diagnosis intractable abdominal pain, intractable nausea and vomit Diagnoses: Chief Complaint: nausea,vomiting, abd pain run out of meds Travel History International Travel<30 Days: No Contact w/Intl Traveler <30 Da: No Traveled to Known Affected Are: No History of Present Illness 51-year-old female with history of cervical cancer, bilateral nephrostomy tubes, colostomy presents for fever and abdominal pain. She was seen by her oncologist, Dr. Santoyo in [place], and given Levaquin for possible UTI. Since then her abdominal pain has worsened. She states the pain is mainly on her right flank has had fevers up to 103 at home. Endorses nausea, occasional vomiting, some weight loss. Also notes that she has had decreased urinary output from the right nephrostomy tube. She does not have a PCP. Poor historian due to anxiety during the encounter. (Evangelista Ybarra MD R1) Review of Systems Except as stated in HPI: all other systems reviewed are Neg Past Family Social History Past Medical History Anxiety Cervical cancer. BL nephrostomy tube HTN Past Surgical History Nephrostomy Colostomy Appendectomy Reported Medications Reported Meds & Active Scripts Active Reported Zofran (Ondansetron HCl) 4 Mg Tab 4 Mg PO Q8HR PRN Levothyroxine (Levothyroxine Sodium) 25 Mcg Tab 25 Mcg PO DAILY Fentanyl Patch 72 HR (Fentanyl) 75 Mcg/Hr Patch 75 Mcg T-DERMAL Q72H Remove old patch when new one placed. 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 SKIN: No rashes, ecchymoses or lesions. Cool and dry. HEAD: Atraumatic. Normocephalic. No temporal or scalp tenderness. EYES: Pupils equal round and reactive. Extraocular motions intact. No scleral icterus. No injection or drainage. ENT: Nose without bleeding, purulent drainage or septal hematoma. Throat without erythema, tonsillar hypertrophy or exudate. Uvula midline. Airway patent. NECK: Trachea midline. No JVD or lymphadenopathy. Supple, nontender, no meningeal signs. CARDIOVASCULAR: Regular rate and rhythm without murmurs, gallops, or rubs. RESPIRATORY: Clear to auscultation. Breath sounds equal bilaterally. No wheezes , rales, or rhonchi. GASTROINTESTINAL: Abdomen soft, tender diffusely but worse on the lower abdomen , nondistended. Colostomy place. No guarding. MUSCULOSKELETAL: Extremities without clubbing, cyanosis, or edema. No joint tenderness, effusion, or edema noted. No calf tenderness. Negative Homans sign bilaterally. NEUROLOGICAL: Awake and alert. Cranial nerves II through XII intact. Motor and sensory grossly within normal limits. Five out of 5 muscle strength in all muscle groups. Normal speech. Laboratory Laboratory Tests Test 07/21/17 13:50 07/21/17 16:35 07/21/17 18:25 White Blood Count 6.8 Red Blood Count 4.65 Hemoglobin 14.2 Hematocrit 41.1 Mean Corpuscular Volume 88.4 Mean Corpuscular Hemoglobin 30.5 Mean Corpuscular Hemoglobin Concent 34.5 Red Cell Distribution Width 14.5 Platelet Count 366 Mean Platelet Volume 6.4 Neutrophils (%) (Auto) 85.5 Lymphocytes (%) (Auto) 9.4 Monocytes (%) (Auto) 3.9 Eosinophils (%) (Auto) 0.1 Basophils (%) (Auto) 1.1 Neutrophils # (Auto) 5.8 Lymphocytes # (Auto) 0.6 Monocytes # (Auto) 0.3 Eosinophils # (Auto) 0.0 Basophils # (Auto) 0.1 CBC Comment DIFF FINAL Differential Comment Blood Urea Nitrogen 29 Creatinine 1.27 Random Glucose 119 Total Protein 8.6 Albumin 4.1 Calcium Level 9.4 Magnesium Level 1.9 Alkaline Phosphatase 109 Aspartate Amino Transf (AST/SGOT) 22 Alanine Aminotransferase (ALT/SGPT) 17 Total Bilirubin 0.4 Sodium Level 138 Potassium Level 3.2 Chloride Level 103 Carbon Dioxide Level 27.4 Anion Gap 8 Estimat Glomerular Filtration Rate 45 Urine Opiates Screen POS Urine Barbiturates Screen NEG Urine Amphetamines Screen NEG Urine Benzodiazepines Screen NEG Urine Cocaine Screen POS Urine Cannabinoids Screen NEG Result Diagram: 07/21/17 1350 07/21/17 1350 Imaging Last Impressions Abdomen X-Ray 07/21/17 0000 Signed Impressions: Service Date/Time: Sunday, July 21, 2017 16:31 - CONCLUSION: 1. Bilateral nephrostomy tubes appear to be stable in position. 2. Ostomy device in the left mid to lower abdomen without findings of bowel obstruction. MD Froylan Izquierdo VTE Risk Assessment Caprini VTE Risk Assessment: Mod/High Risk (score >= 2) Caprini Risk Assessment Model Point Value = 1 Point Value = 2 Point Value = 3 Point Value = 5 Age 41-60 Minor surgery BMI > 25 kg/m2 Swollen legs Varicose veins or History of unexplained or recurrent spontaneous Oral contraceptives or hormone replacement Sepsis (< 1 month) Serious lung disease, including pneumonia (< 1 month) Abnormal pulmonary function Acute myocardial infarction Congestive heart failure (< 1 month) History of inflammatory bowel disease Medical patient at bed rest Age 61-74 Arthroscopic surgery Major open surgery (> 45 min) Laparoscopic surgery (> 45 min) Malignancy Confined to bed (> 72 hours) Immobilizing plaster cast Central venous access Age >= 75 History of VTE Family history of VTE Factor V Leiden Prothrombin [id number] Lupus anticoagulant Anticardiolipin antibodies Elevated serum homocysteine Heparin-induced thrombocytopenia Other congenital or acquired thrombophilia Stroke (< 1 month) Elective arthroplasty Hip, pelvis, or leg fracture Acute spinal cord injury (< 1 month) Prophylaxis Regimen Total Risk Factor Score Risk Level Prophylaxis Regimen 0-1 Low Early ambulation 2 Moderate Order ONE of the following: *Sequential Compression Device (SCD) *Heparin 5000 units SQ BID 3-4 Higher Order ONE of the following medications: *Heparin 5000 units SQ TID *Enoxaparin/Lovenox 40 mg SQ daily (WT < 150 kg, CrCl > 30 mL/min) *Enoxaparin/Lovenox 30 mg SQ daily (WT < 150 kg, CrCl > 10-29 mL/min) *Enoxaparin/Lovenox 30 mg SQ BID (WT < 150 kg, CrCl > 30 mL/min) AND/OR *Sequential Compression Device (SCD) 5 or more Highest Order ONE of the following medications: *Heparin 5000 units SQ TID (Preferred with Epidurals) *Enoxaparin/Lovenox 40 mg SQ daily (WT < 150 kg, CrCl > 30 mL/min) *Enoxaparin/Lovenox 30 mg SQ daily (WT < 150 kg, CrCl > 10-29 mL/min) *Enoxaparin/Lovenox 30 mg SQ BID (WT < 150 kg, CrCl > 30 mL/min) AND *Sequential Compression Device (SCD) Assessment and Plan Assessment and Plan 51 y/o female with history of cervical cancer, bilateral nephrostomy tubes, colostomy presents with nausea, vomiting and abdominal pain. Intractable nausea, vomiting, abd pain . FAISAL creatinine 1.27 on admission. Monitor kidney function. Avoid nephrotoxins. Nephrostomy tube misplacement. IR Dr Rosario has seen the patient, plan for intervention poss tomorrow . Consult IR. Hypertension uncontrolled. Restart home medications. Give 1 dose of labetalol IV 20 mg. Monitor vital signs closely nd adjust meds as need. Also control pain. Add hydralazine when necessary and Vasotec when necessary. Patient with a h/o large mass cervical cancer, with nephrostomy tubes follows with Dr Alexander urology and oncology in [place] IF with Normal saline Pain control with morphine, fentanyl patch and breakthrough IV narcotic. Monitor VS Phenergan, zofran, reglan PRN nausea/vomiting H/o Cervical cancer Oncologist is Dr. Santoyo in [place]. Patient has a large mass interfering with urination and has bilateral nephrostomy tubes. DVT ppx: lovenox Discussed Condition With patient, nurse, ED physician Dari Vargas MD Jul 21, 2017 19:43
[2017-07-21] MEDS: ENOXAPARIN SODIUM 40 MG/0.4 ML SYRINGE SQ SCH (20:03)
[2017-07-21] MEDS: SODIUM CHLOR 0.9% 1000 ML INJ 1,000 ML IV SCH (20:05)
[2017-07-21] MEDS: MORPHINE SULFATE 30 MG CONTROLLED RELEASE TAB PO SCH (20:29)
[2017-07-21] MEDS ORDERED: fentaNYL 75 MCG/HR PATCH T-DERMAL SCH ×2 (21:00→22:00)
[2017-07-21] MEDS: DOCUSATE SODIUM 50 MG/SENNA 8.6 MG TAB PO SCH (21:11)
[2017-07-21] MEDS ORDERED: REMOVE OLD DURAGESIC (FENTANYL) PATCH T-DERMAL SCH (22:00)
[2017-07-21] MEDS: ONDANSETRON HCL 4 MG/2 ML VIAL IVP PRN (22:11)
[2017-07-22] VITALS (28 sets, daily range): BP systolic 98–169; BP diastolic 58–94; PULSE 62–95; RESP 16–24; TEMP 98.4–98.7; O2SAT 94–100
[2017-07-22 00:23] LABS: BACTERIA, URINE FEW /hpf; BLOOD, URINE SMALL (NEG); COMMENT (UR) CULTURE INDICATED; CULTURE IF INDICATED CULTURE INDICATED; GLUCOSE,URINE NEG (NEG); KETONE, URINE NEG (NEG); MUCUS URINE FEW /lpf (OCC); NITRITE,URINE NEG (NEG); SQUAMOUS EPITHELIAL CELL URINE <1 /hpf (0-5); TRIPLE PHOSPHATE CRYSTAL,URINE MANY /hpf; URINE COLOR LIGHT-YELLOW (YELLW/STRAW)
[2017-07-22] MEDS: SODIUM CHLOR 0.9% 1000 ML INJ 1,000 ML IV SCH ×3 (03:25→20:44)
[2017-07-22] MEDS: MORPHINE SULFATE 30 MG CONTROLLED RELEASE TAB PO SCH ×6 (05:30→20:34)
[2017-07-22] MEDS: SODIUM CHLORIDE 0.9% FLUSH 10 ML FLUSH IV FLUSH SCH ×3 (05:30→20:42)
[2017-07-22] MEDS: LEVOTHYROXINE SODIUM 25 MCG TAB PO SCH (05:31)
[2017-07-22] MEDS: ONDANSETRON HCL 4 MG/2 ML VIAL IVP PRN (05:33)
[2017-07-22 05:56] LABS: AUTOMATED NEUTROPHIL # 4.5 TH/MM3 (1.8-7.7); BASOPHIL # 0.1 TH/MM3 (0-0.2); EOSINOPHIL # 0.1 TH/MM3 (0-0.4); EOSINOPHIL % 1.1 % (0.0-4.0); HEMATOCRIT 35.3 % (35.0-46.0); HEMO FLAGS DIFF FINAL; LYMPH % 24.6 % (9.0-44.0); LYMPHOCYTE # 1.8 TH/MM3 (1.0-4.8); MEAN CORPUSCULAR HEMOGLOBIN 30.8 PG (27.0-34.0); MEAN CORPUSCULAR HGB CONC 34.5 % (32.0-36.0); MONO % 10.6 % (0.0-8.0); NEUT % 62.7 % (16.0-70.0); PLATELET COUNT 323 TH/MM3 (150-450); RED BLOOD COUNT 3.97 MIL/MM3 (4.00-5.30); RED CELL DISTRIBUTION WIDTH 14.1 % (11.6-17.2); WHITE BLOOD COUNT 7.2 TH/MM3 (4.0-11.0)
[2017-07-22 06:21] LABS: BICARBONATE 26.5 MEQ/L (21.0-32.0); POTASSIUM 3.1 MEQ/L (3.5-5.1)
--- NOTE | 2017-07-22 08:02 | HHI.PR ---
Subjective Remarks Past medical history and current medications. Nausea improved to normal vomiting. Fever or chills. No chest pain, shortness of breath. Blood pressure is controlled Objective Vitals Vital Signs Date Time Temp Pulse Resp B/P (MAP) Pulse Ox O2 Delivery O2 Flow Rate FiO2 07/22/17 07:35 96 21 07/22/17 07:00 95 07/22/17 06:00 74 07/22/17 05:48 98.7 80 18 128/73 (91) 95 07/22/17 05:00 74 07/22/17 04:00 80 07/22/17 03:00 82 07/22/17 02:55 98.7 82 18 139/74 (95) 94 07/22/17 02:00 82 07/22/17 01:00 90 07/22/17 00:55 98.6 88 24 169/94 (119) 98 07/22/17 00:29 07/21/17 23:31 76 203/95 (131) 07/21/17 22:58 205/98 (133) 07/21/17 22:14 70 18 201/105 (137) 95 Room Air 07/21/17 21:48 78 18 216/101 (139) 95 Room Air 07/21/17 20:43 80 18 201/95 (130) 94 07/21/17 19:29 96 07/21/17 18:59 78 18 222/107 (145) 95 Room Air 07/21/17 16:39 20 98 Room Air 07/21/17 15:35 99.4 91 18 201/94 (129) 98 Room Air I/O 07/21/17 07/21/17 07/21/17 07/22/17 07/22/17 07/22/17 07:00 15:00 23:00 07:00 15:00 23:00 Intake Total 1000 ml 1100 ml Output Total 370 ml Balance 1000 ml 730 ml Intake Oral 300 ml IV Total 1000 ml 800 ml Output Urine Total 310 ml Stool Total 60 ml Result Diagram: 07/22/17 0520 07/22/17 0520 Imaging Last Impressions Abdomen X-Ray 07/21/17 0000 Signed Impressions: Service Date/Time: Friday, July 21, 2017 16:31 - CONCLUSION: 1. Bilateral nephrostomy tubes appear to be stable in position. 2. Ostomy device in the left mid to lower abdomen without findings of bowel obstruction. Ceferino Rosario MD Objective Remarks GENERAL: This is a well-nourished, well-developed patient, in some distress due to pain. SKIN: No rashes, ecchymoses or lesions. Cool and dry. HEAD: Atraumatic. Normocephalic. No temporal or scalp tenderness. EYES: Pupils equal round and reactive. Extraocular motions intact. No scleral icterus. No injection or drainage. ENT: Nose without bleeding, purulent drainage or septal hematoma. Throat without erythema, tonsillar hypertrophy or exudate. Uvula midline. Airway patent. NECK: Trachea midline. No JVD or lymphadenopathy. Supple, nontender, no meningeal signs. CARDIOVASCULAR: Regular rate and rhythm without murmurs, gallops, or rubs. RESPIRATORY: Clear to auscultation. Breath sounds equal bilaterally. No wheezes , rales, or rhonchi. GASTROINTESTINAL: Abdomen soft, tender diffusely but worse on the lower abdomen , nondistended. Colostomy place. No guarding. MUSCULOSKELETAL: Extremities without clubbing, cyanosis, or edema. No joint tenderness, effusion, or edema noted. No calf tenderness. Negative Homans sign bilaterally. NEUROLOGICAL: Awake and alert. Cranial nerves II through XII intact. Motor and sensory grossly within normal limits. Five out of 5 muscle strength in all muscle groups. Normal speech. A/P Assessment and Plan 51 y/o female with history of cervical cancer, bilateral nephrostomy tubes, colostomy presents with nausea, vomiting and abdominal pain. Intractable nausea, vomiting, abd pain . FAISAL creatinine 1.27 on admission. Monitor kidney function. Avoid nephrotoxins. Nephrostomy tube misplacement. IR Dr Rosario has seen the patient, plan for intervention today 07/22/17. Keep NPO . Consult IR, ff. Hypertension uncontrolled. Restart home medications. Give 1 dose of labetalol IV 20 mg. Monitor vital signs closely nd adjust meds as need. Also control pain. Add hydralazine when necessary and Vasotec when necessary. Patient with a h/o large mass cervical cancer, with nephrostomy tubes follows with Dr Alexander urology and oncology in [place] IF with Normal saline Pain control with morphine, fentanyl patch and breakthrough IV narcotic. Monitor VS Phenergan, zofran, reglan PRN nausea/vomiting Hypokalemia./ Replace by IV as patien tis NPO for intervention and with n/v. H/o Cervical cancer Oncologist is Dr. Santoyo in [place]. Patient has a large mass interfering with urination and has bilateral nephrostomy tubes. DVT ppx: lovenox Discussed Condition With patient, nurse Dari Vargas MD Jul 22, 2017 08:02
[2017-07-22] MEDS: POTASSIUM CHLOR 20 MEQ PREMIX 100 ML IV SCH ×2 (08:27→12:18)
[2017-07-22] MEDS: DOCUSATE SODIUM 50 MG/SENNA 8.6 MG TAB PO SCH ×2 (08:29→20:42)
[2017-07-22] MEDS ORDERED: POTASSIUM CHLORIDE 10 MEQ CONTROLLED RELEASE TAB PO ONE (09:30)
[2017-07-22] MEDS ORDERED: MIDAZOLAM HCL 2 MG/2 ML VIAL ONE ×2 (09:47→10:24)
[2017-07-22] MEDS ORDERED: LEVOFLOXACIN 500 MG PREMIX INJ 100 ML IV ONE (10:12)
--- NOTE | 2017-07-22 10:38 | PD.RAD ---
Post Procedure Progress Note Pre Procedure Diagnosis: (1) Obstructed nephrostomy tube (2) Cervical cancer (3) Obstructive uropathy Post Procedure Diagnosis: (1) Obstructive uropathy (2) Cervical cancer (3) Obstructed nephrostomy tube Procedure Date: Jul 22, 2017 Supervising Radiologist: Ceferino Rosario Proceduralist/Assist: Dionisio Isaac, RT(R), Davey Quiros RT(R)() Anesthesia: Local, Analgesia, Conscious Sedation Plan of Activity Patient to Unit: PACU Patient Condition: Good See PACS Report for procedural detail/treatment Drainage Procedure Procedure 1 Imaging Guidance: Fluoroscopy Side: Bilateral Procedure Type: Nephrostomy Procedure: Exchange Arabic: 8 Findings: Left occluded. Right poorly functioning. Calcific concretions on the loop of both existing catheters. Both removed and replaced Ceferino Rosario MD Jul 22, 2017 10:38
[2017-07-22] MEDS ORDERED: IOHEXOL 350 MG/ML 100 ML BTL (for RAD DIAG) OTHER ONE (12:39)
[2017-07-22] MEDS: ENOXAPARIN SODIUM 40 MG/0.4 ML SYRINGE SQ SCH (20:00)
[2017-07-23] VITALS (14 sets, daily range): BP systolic 103–116; BP diastolic 56–62; PULSE 66–85; RESP 16–19; TEMP 98.6; O2SAT 95–98
[2017-07-23] MEDS: MORPHINE SULFATE 30 MG CONTROLLED RELEASE TAB PO SCH ×3 (00:55→08:57)
[2017-07-23] MEDS: LEVOTHYROXINE SODIUM 25 MCG TAB PO SCH (05:19)
[2017-07-23] MEDS: SODIUM CHLORIDE 0.9% FLUSH 10 ML FLUSH IV FLUSH SCH (08:58)
[2017-07-23] MEDS: DOCUSATE SODIUM 50 MG/SENNA 8.6 MG TAB PO SCH (08:58)
--- NOTE | 2017-07-23 09:50 | HHI.PR ---
Subjective Remarks The pt has pain from nephrostomy tube placement but no acute concerns. She has a doctor appointment at 3PM for pain management. She would like to be discharged. Discussed with nursing. Objective Vitals Vital Signs Date Time Temp Pulse Resp B/P (MAP) Pulse Ox O2 Delivery O2 Flow Rate FiO2 07/23/17 09:00 85 07/23/17 08:34 95 07/23/17 08:00 76 07/23/17 08:00 79 19 105/56 (72) 07/23/17 07:15 71 07/23/17 06:00 67 07/23/17 05:00 98.6 75 16 116/62 (80) 98 07/23/17 05:00 66 07/23/17 04:00 72 07/23/17 03:00 83 07/23/17 02:00 74 07/23/17 01:00 76 07/23/17 00:00 70 07/22/17 23:00 65 07/22/17 23:00 98.6 75 16 121/61 (81) 98 07/22/17 22:00 64 07/22/17 21:00 78 07/22/17 20:00 70 07/22/17 20:00 98.4 66 16 124/62 (82) 97 07/22/17 19:00 73 07/22/17 18:00 70 07/22/17 18:00 17 07/22/17 17:00 70 07/22/17 16:00 78 07/22/17 15:45 98.5 77 16 98/58 (71) 98 07/22/17 15:00 71 07/22/17 14:00 70 07/22/17 13:00 62 07/22/17 12:15 98.4 66 17 103/59 (74) 100 07/22/17 12:00 66 07/22/17 11:45 65 18 83/54 (64) 96 Room Air 07/22/17 11:30 62 18 84/51 (62) 97 Room Air 07/22/17 11:15 65 18 87/53 (64) 98 Room Air 07/22/17 11:00 98.4 74 18 92/50 (64) 99 Nasal Cannula 1 I/O 07/22/17 07/22/17 07/22/17 07/23/17 07/23/1717 07:00 15:00 23:00 07:00 15:00 23:00 Intake Total 1100 ml 5 ml 1100 ml 1260 ml Output Total 370 ml 0 ml 300 ml 385 ml Balance 730 ml 5 ml 800 ml 875 ml Intake Oral 300 ml 0 ml 500 ml 480 ml IV Total 800 ml 5 ml 600 ml 780 ml Output Urine Total 310 ml 0 ml 150 ml Stool Total 60 ml 75 ml Drainage Total 150 ml 310 ml Result Diagram: 07/22/17 0520 07/22/17 0520 Imaging Last Impressions Abdomen X-Ray 07/21/17 0000 Signed Impressions: Service Date/Time: Sunday, July 21, 2017 16:31 - CONCLUSION: 1. Bilateral nephrostomy tubes appear to be stable in position. 2. Ostomy device in the left mid to lower abdomen without findings of bowel obstruction. Ceferino Rosario MD Objective Remarks GENERAL: This is a well-nourished, well-developed patient, uncomfortable due to pain. SKIN: No rashes, ecchymoses or lesions. Cool and dry. HEAD: Atraumatic. Normocephalic. No temporal or scalp tenderness. EYES: Pupils equal round and reactive. Extraocular motions intact. No scleral icterus. No injection or drainage. ENT: Nose without bleeding, purulent drainage or septal hematoma. Throat without erythema, tonsillar hypertrophy or exudate. Uvula midline. Airway patent. NECK: Trachea midline. No JVD or lymphadenopathy. Supple, nontender, no meningeal signs. CARDIOVASCULAR: Regular rate and rhythm without murmurs, gallops, or rubs. RESPIRATORY: Clear to auscultation. Breath sounds equal bilaterally. No wheezes , rales, or rhonchi. GASTROINTESTINAL: Abdomen soft, tender diffusely but worse on the lower abdomen , nondistended. Colostomy place. No guarding. MUSCULOSKELETAL: Extremities without clubbing, cyanosis, or edema. No joint tenderness, effusion, or edema noted. NEUROLOGICAL: Awake and alert. Cranial nerves II through XII intact. Motor and sensory grossly within normal limits. Five out of 5 muscle strength in all muscle groups. Normal speech. PSYCH: Mood and affect appropriate. Medications and IVs Current Medications Medications (Trade) Dose Ordered Sig/Lizandro Route Start Time Stop Time Status Last Admin Sodium Chloride 1,000 ml @ 100 mls/hr Q10H IV 12/16/17 20:00 07/22/17 20:44 (NS Flush) 2 ml UNSCH PRN IV FLUSH 07/21/17 19:15 (NS Flush) 2 ml BID IV FLUSH 07/21/17 21:00 07/23/17 08:58 (Tylenol) 650 mg Q4H PRN PO 07/21/17 19:15 (Zofran Inj) 4 mg Q6H PRN IVP 07/21/17 19:15 07/22/17 05:33 (Reglan Inj) 5 mg Q6H PRN IV PUSH 07/21/17 19:15 (Lovenox Inj) 40 mg Q24H SQ 07/21/17 20:00 07/21/17 20:03 (Narcan Inj) 0.4 mg UNSCH PRN IV PUSH 07/21/17 19:15 (Tania-Colace) 1 tab BID PO 07/21/17 21:00 07/21/17 21:11 (Milk Of Magnesia Liq) 30 ml Q12H PRN PO 07/21/17 19:15 (Senokot) 17.2 mg Q12H PRN PO 07/21/17 19:15 (Dulcolax Supp) 10 mg DAILY PRN RECTAL 07/21/17 19:15 (Lactulose Liq) 30 ml DAILY PRN PO 07/21/17 19:15 (Synthroid) 25 mcg DAILY@0600 PO 07/22/17 06:00 07/23/17 05:19 (Oramorph Sr) 30 mg Q4HR PO 07/21/17 20:00 07/23/17 08:57 (Narcan Inj) 0.4 mg UNSCH PRN IV PUSH 07/21/17 19:15 (Phenergan) 25 mg Q4H PRN PO 07/21/17 19:15 (Morphine Inj) 2 mg Q4H PRN IM 07/21/17 19:15 (Duragesic 75 Mcg Patch.72 Hr) 1 patch Q72H T-DERMAL 07/21/17 22:00 07/21/17 21:42 Miscellaneous Information 1 Q3D T-DERMAL 07/21/17 22:00 A/P Assessment and Plan 51 y/o female with history of cervical cancer, bilateral nephrostomy tubes, colostomy presents with nausea, vomiting and abdominal pain. FAISAL creatinine 1.27 on admission. Monitor kidney function. Avoid nephrotoxins. Improved. Nephrostomy tube dysfunction: Left occluded; Right poorly functioning. Calcific concretions on the loop of both existing catheters. Both removed and replaced 07/22 by IR. The pt will manage her nephrostomies per routine at home. Hypertension uncontrolled. Restart home medications. Give 1 dose of labetalol IV 20 mg. Monitor vital signs closely nd adjust meds as need. Also control pain. Add hydralazine when necessary and Vasotec when necessary. Resolved. Patient with a h/o large mass cervical cancer, with nephrostomy tubes follows with Dr Alexander urology and oncology in [place]. She will follow up as scheduled. She said she is due for a biopsy. Pain control with morphine, fentanyl patch and breakthrough IV narcotic. Monitor VS . Resume home regimen upon discharge. Phenergan, zofran, reglan PRN nausea/vomiting. Hypokalemia: Repleted. Follow repeat BMP. H/o Cervical cancer Oncologist is Dr. Santoyo in [place]. Patient has a large mass interfering with urination and has bilateral nephrostomy tubes. DVT ppx: Lovenox Discharge Planning D/c home. Will need a ride home. Juwan Wallace DO Jul 23, 2017 09:50
[2017-07-23] MEDS ORDERED: CIPR500T2 PO (11:03)
--- NOTE | 2017-07-23 11:03 | HHI.DCPOC ---
Discharge Care Plan Diagnosis: (1) Obstructed nephrostomy tube (2) Cervical cancer (3) Obstructive uropathy (4) Intractable abdominal pain (5) Urinary tract infection associated with nephrostomy catheter Goals to Promote Your Health * To prevent worsening of your condition and complications * To maintain your health at the optimal level Directions to Meet Your Goals Take your medications as prescribed Follow your dietary instruction Follow activity as directed Keep your appointments as scheduled Take your immunizations and boosters as scheduled If your symptoms worsen call your PCP, if no PCP go to Urgent Care Center or Emergency Room Smoking is Dangerous to Your Health. Avoid second hand smoke Call the 24-hour hour crisis hotline for domestic abuse at Juwan Wallace DO Jul 23, 2017 11:03
--- NOTE | 2017-07-23 12:56 | RADRPT ---
EXAM DATE/TIME: 07/22/2017 10:44 [facility] COMPARISON: CHANGE OF NEPHROSTOMY CATH, LT, May 15, 2017, 14:55. INDICATIONS : Patient with a history of bilateral hydronephrosis, needs bilateral nephrostomy tubes exchanged. MEDICAL HISTORY : Pyelonephritis, cervical cancer, hydronephrosis and renal obstruction, HTN SURGICAL HISTORY : Cholecystectomy, Appendectomy, Colostomy ENCOUNTER: Subsequent ACUITY: 1 day PAIN SCORE: 0/10 LOCATION: N/A FLUORO TIME: 4.4 minutes IMAGE SERIES: 6 SEDATION TIME: 30 minutes CONTRAST: 30 cc Omnipaque (iohexol) 350 MEDICATION(S): 1.) 5 mg midazolam (Versed) IV 2.) 250 mcg fentanyl (Sublimaze) IV 3.) 500 mg levofloxacin (Levaquin) IV Intra-procedural antibiotics were given as prescribed above. DEVICE(S): 1.) 8 Nigerien 25 cm nephrostomy catheter Expel w/ twist loc hub PROCEDURE : 1. Antegrade pyelogram. 2. Nephrostomy tube exchange. 3. Conscious sedation with continuous EKG and oximetry monitoring. The risks, benefits and alternatives to the procedure were explained and verbal and written consent w as obtained. The site was prepped in sterile fashion. Full sterile technique was used, including ca p, mask, sterile gloves and gown and a large sterile sheet. Hand hygiene and 2% chlorhexidine and/or betadine/alcohol prep was utilized per protocol for cutaneous antisepsis. The skin and subcutaneous tissues were infiltrated with local anesthetic solution. Existing catheter could not be injected. Th erefore, a catheter was excised and the entire tube removed. Heavy calcific concretions at the [place] l oop. The tract was probed with a hockey-stick catheter back into the collecting system. Contrast inje ction confirmed position. 035 wire was advanced through the catheter to facilitate placement of a new 8 Nigerien [place] loop catheter. Injection of positive contrast demonstrates good position of the catheter within the collecting syste m. Contrast also flowed freely through the ureter into the bladder. However, there appears to be a ma ss lesion within the bladder lumen. Conscious sedation was performed with the prescribed dosages and duration as above in the presence of an independent trained radiology nurse to assist in the monitoring of the patient. EKG and oximetry remained stable throughout the procedure. The patient tolerated the procedure well and there were n o complications. The patient was sent to post anesthesia recovery in stable condition. CONCLUSION: 1. Uncomplicated nephrostomy tube exchange as above. 2. Ureter appears to be open to the urinary bladder but there is a large filling defect within the bl adder itself presumably representing a mass. Ceferino Rosario MD on July 23, 2017 at 12:51 Board Certified Radiologist. This report was verified electronically.
--- NOTE | 2017-07-23 13:15 | RADRPT ---
EXAM DATE/TIME: 07/22/2017 10:44 [facility] COMPARISON: CHANGE OF NEPHROSTOMY CATH, RT, May 15, 2017, 14:55. INDICATIONS : Patient with a history of bilateral hydronephrosis, needs bilateral nephrostomy tubes exchanged. MEDICAL HISTORY : Pyelonephritis, cervical cancer, hydronephrosis and renal obstruction, HTN SURGICAL HISTORY : Cholecystectomy, Appendectomy, Colostomy ENCOUNTER: Subsequent ACUITY: 1 day PAIN SCORE: 0/10 LOCATION: N/A FLUORO TIME: 4.4 minutes IMAGE SERIES: 6 SEDATION TIME: 30 minutes CONTRAST: 30 cc Omnipaque (iohexol) 350 MEDICATION(S): 1.) 5 mg midazolam (Versed) IV 2.) 250 mcg fentanyl (Sublimaze) IV 3.) 500 mg levofloxacin (Levaquin) IV Intra-procedural antibiotics were given as prescribed above. DEVICE(S): 1.) 8 Chadian 25 cm nephrostomy catheter Expel with twist loc hub PROCEDURE : 1. Antegrade pyelogram. 2. Nephrostomy tube exchange. 3. Conscious sedation with continuous EKG and oximetry monitoring. The risks, benefits and alternatives to the procedure were explained and verbal and written consent w as obtained. The site was prepped in sterile fashion. Full sterile technique was used, including ca p, mask, sterile gloves and gown and a large sterile sheet. Hand hygiene and 2% chlorhexidine and/or betadine/alcohol prep was utilized per protocol for cutaneous antisepsis. The skin and subcutaneous tissues were infiltrated with local anesthetic solution. With fluoroscopic guidance antegrade pyelo gram was performed. Over a guidewire the prescribed nephrostomy tube was placed. Injection of positive contrast demonstra johny good position of the catheter within the collecting system. Conscious sedation was performed with the prescribed dosages and duration as above in the presence of an independent trained radiology nurse to assist in the monitoring of the patient. EKG and oximetry remained stable throughout the procedure. The patient tolerated the procedure well and there were n o complications. The patient was sent to post anesthesia recovery in stable condition. CONCLUSION: Uncomplicated nephrostomy tube exchange as above. Ceferino Rosario MD on July 23, 2017 at 13:13 Board Certified Radiologist. This report was verified electronically.
[2017-07-24] MEDS ORDERED: REMOVE OLD PATCH T-DERMAL SCH (21:00)
[2017-07-24] MEDS ORDERED: REMOVE OLD DURAGESIC (FENTANYL) PATCH T-DERMAL SCH (21:30)
== END 2017-07-23 12:25 | disposition home or self-care (01) ==
LOC: NEPE 15:22 → NEDA 18:17 → HCPC 07-22 00:45
PROVIDERS: ADMIT Hospitalist; ATTEND Hospitalist
DX: T83.092A Other mechanical complication of nephrostomy catheter, initial encounter (principal); T83.012A Breakdown (mechanical) of nephrostomy catheter, initial encounter; Y73.2 Prosthetic and other implants, materials and accessory gastroenterology and urology devices associated with adverse incidents; N39.0 Urinary tract infection, site not specified; N13.9 Obstructive and reflux uropathy, unspecified; N17.9 Acute kidney failure, unspecified; C53.9 Malignant neoplasm of cervix uteri, unspecified; E86.0 Dehydration; E87.6 Hypokalemia; I10 Essential (primary) hypertension; F41.9 Anxiety disorder, unspecified
CPT/HCPCS: 50435; 74000; 80048; 80053; 80307; 81001; 83605; 83735; 85025; 87086; 96361; 96372; 96374; 96375; 99152; 99153; 99285; C1729; C1769; C1887; G0378; J1170; J1650; J1956; J2250; J2270; J2405; J2550; J2765; J3010; J3480; J7030; Q9967

== ENCOUNTER 2017-09-11 14:03 | Emergency (ER) | payer OTHER ==
[~2017-09-11 14:03] MED LIST changes: -CEPH-460 PO; +CIPR500T2 PO
[2017-09-11] MEDS ORDERED: IOHEXOL 350 MG/ML 50 ML BTL (for RAD DIAG) OTHER ONE (14:04)
[2017-09-11 14:05] VITALS: BP 187/85; PULSE 75; RESP 18; TEMP 98.6; O2SAT 100
--- NOTE | 2017-09-11 15:09 | PD ---
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 She thinks she lost the nephrostomy tube around 2 AM. She endorses mild pain in the right patient costovertebral area. She denies fevers, chills, nausea, vomiting. She endorses good urinary output from the left nephrostomy tube. She is followed by specialist in [place], has bilateral percutaneous nephrostomy secondary to obstruction. PFSH Past Medical History Blood Disorders: No Heart Rhythm Problems: No Cancer: Yes (cervical) Cardiovascular Problems: Yes (HTN) High Cholesterol: No Chemotherapy: Yes (LAST CHEMO DOSE RIGHT BEFORE ) Chest Pain: No Congestive Heart Failure: No Diminished Hearing: No Endocrine: No Gastrointestinal Disorders: No Genitourinary: Yes Hypertension: Yes (takes no meds) Immune Disorder: No Implanted Vascular Access Dvce: No Musculoskeletal: No Neurologic: No Psychiatric: No Reproductive: Yes (CERVICAL CANCER) Respiratory: No (PT STATES SHE HAS 'TUMORS IN HER LUNG') Immunizations Current: No Radiation Therapy: Yes ("1 year ago" (stated 07/24/16)) Thyroid Disease: Yes Menopausal: Yes Past Surgical History Abdominal Surgery: Yes (Colostomy) AICD: No Appendectomy: Yes Body Medical Devices: bilateral nephrostomy tubes Section: Yes Genitourinary Surgery: Yes (Bilateral Neprhostomy tubes) Gynecologic Surgery: Yes (cervcial sleeve, c section) Joint Replacement: No Pacemaker: No Other Surgery: Yes Social History Alcohol Use: No Tobacco Use: No Substance Use: No Allergies-Medications (Allergen,Severity, Reaction): Coded Allergies: *MDRO Multi-Drug Resistant Organism (Verified Adverse Reaction, Unknown, 07/21/17) 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 Morphine ER (Morphine Sulfate) 30 Mg Tab 30 Mg PO Q4HR Review of Systems Except as stated in HPI: all other systems reviewed are Neg Physical Exam Narrative GENERAL: Well-nourished, well-developed, petite white female in no acute distress. SKIN: Focused skin assessment warm/dry. HEAD: Normocephalic. EYES: No scleral icterus. No injection or drainage. NECK: Supple, trachea midline. No JVD or lymphadenopathy. CARDIOVASCULAR: Regular rate and rhythm without murmurs, gallops, or rubs. RESPIRATORY: Breath sounds clear and equal bilaterally. No accessory muscle use. GASTROINTESTINAL: Abdomen soft, non-tender, nondistended. Colostomy bag in place, no signs of infection. MUSCULOSKELETAL: No cyanosis, or edema. BACK: Nontender without obvious deformity. Mild right-sided CVA tenderness. Percutaneous nephrostomy tube in place on the left. Surgical sites well-healed without signs of infection Data Data Last Documented VS Vital Signs Date Time Temp Pulse Resp B/P (MAP) Pulse Ox O2 Delivery O2 Flow Rate FiO2 09/11/17 14:05 98.6 75 18 187/85 (119) 100 Room Air Orders Orders Complete Blood Count With Diff (09/11/17 14:39) Basic Metabolic Panel (Bmp) (09/11/17 14:39) Coag Profile (09/11/17 14:39) Midazolam Inj (Versed Inj) (09/11/17 16:40) Midazolam Inj (Versed Inj) (09/11/17 16:40) Fentanyl Inj (Fentanyl Inj) (09/11/17 16:40) Levofloxacin 500 Mg Premix Inj (Levaquin (09/11/17 17:17) Vital Signs (Adult) Q15MX2,Q30MX2 (09/11/17 17:32) Intake + Output HOLLI.QSHIFT (09/11/17 17:32) ^ Drain (09/11/17 17:32) Change Dressing (09/11/17 17:32) Notify Radiology (09/11/17 17:32) Discharge Instructions (09/11/17 17:32) Iohexol 350 Inj (Omnipaque 350 Inj) (09/11/17 14:04) Nephrostomy (09/11/17 ) Antegrade Pyelogram (09/11/17 ) Antegrade Pyelogram (09/11/17 ) Ed Discharge Order (09/11/17 18:09) Labs Laboratory Tests Test 09/11/17 14:50 White Blood Count 6.2 TH/MM3 Red Blood Count 4.20 MIL/MM3 Hemoglobin 12.6 GM/DL Hematocrit 36.1 % Mean Corpuscular Volume 86.0 FL Mean Corpuscular Hemoglobin 30.0 PG Mean Corpuscular Hemoglobin Concent 34.9 % Red Cell Distribution Width 14.3 % Platelet Count 359 TH/MM3 Mean Platelet Volume 6.4 FL Neutrophils (%) (Auto) 62.6 % Lymphocytes (%) (Auto) 25.8 % Monocytes (%) (Auto) 5.4 % Eosinophils (%) (Auto) 5.4 % Basophils (%) (Auto) 0.8 % Neutrophils # (Auto) 3.9 TH/MM3 Lymphocytes # (Auto) 1.6 TH/MM3 Monocytes # (Auto) 0.3 TH/MM3 Eosinophils # (Auto) 0.3 TH/MM3 Basophils # (Auto) 0.1 TH/MM3 CBC Comment DIFF FINAL Differential Comment Prothrombin Time 10.1 SEC Prothromb Time International Ratio 1.0 RATIO Activated Partial Thromboplast Time 24.7 SEC Blood Urea Nitrogen 11 MG/DL Creatinine 0.90 MG/DL Random Glucose 84 MG/DL Calcium Level 9.0 MG/DL Sodium Level 141 MEQ/L Potassium Level 3.5 MEQ/L Chloride Level 109 MEQ/L Carbon Dioxide Level 23.8 MEQ/L Anion Gap 8 MEQ/L Estimat Glomerular Filtration Rate 66 ML/MIN [facility] Medical Decision Making Medical Screen Exam Complete: Yes Emergency Medical Condition: Yes Differential Diagnosis nephrostomy tube displacement versus hydronephrosis versus obstructive uropathy versus other Narrative Course 52-year-old female with PMH of cervical cancer, vesicovaginal fistula presents to the ED requesting replacement of right nephrostomy tube. She thinks she lost the nephrostomy tube around 2 AM. She endorses mild pain in the right costovertebral area. She denies fevers, chills, nausea, vomiting. She endorses good urinary output from the left nephrostomy tube. She is followed by specialists in [place], has bilateral percutaneous nephrostomy secondary to obstruction. Patient's hypertensive on presentation. On physical exam she is nontoxic appearing. The left nephrostomy tube is in place and there is pale yellow fluid in collection bag. Mild right CVA tenderness. Abdomen soft, nontender. Colostomy bag in place. Basic lab work unremarkable. Patient taken to IR for replacement of nephrostomy tube. Upon return the patient was monitored in the ED until she was alert, awake. She was tolerating liquids and crackers. She is ambulating normally. The right-sided nephrostomy tube collection bag has approximately 30 cc of pink tinged urine. Patient is stable and discharged for follow-up with her hearing health technician and oncologist. Diagnosis Primary Impression: Displacement of nephrostomy tube Referrals: Psychiatric Clinical Nurse Specialist Oncologist Patient Instructions: General Instructions, Nephrostomy Tube Care (ED), Nephrostomy Tube Insertion (DC) Additional Instructions: Rest, hydrate. Resume at home medications as prescribed. Follow-up with your hearing health technician and oncologist. Return to the ED for any urgent or emergent medical condition. Disposition: 01 DISCHARGE HOME Condition: Stable Shyanne Galo Sep 11, 2017 15:09
[2017-09-11 15:45] LABS: AUTOMATED NEUTROPHIL # 3.9 TH/MM3 (1.8-7.7); BASOPHIL # 0.1 TH/MM3 (0-0.2); BASOPHIL % 0.8 % (0.0-2.0); EOSINOPHIL # 0.3 TH/MM3 (0-0.4); EOSINOPHIL % 5.4 % (0.0-4.0); HEMATOCRIT 36.1 % (35.0-46.0); HEMOGLOBIN 12.6 GM/DL (11.6-15.3); LYMPH % 25.8 % (9.0-44.0); LYMPHOCYTE # 1.6 TH/MM3 (1.0-4.8); MEAN CORPUSCULAR HGB CONC 34.9 % (32.0-36.0); MEAN PLATELET VOLUME 6.4 FL (7.0-11.0); MONO % 5.4 % (0.0-8.0); MONOCYTE # 0.3 TH/MM3 (0-0.9); NEUT % 62.6 % (16.0-70.0); PLATELET COUNT 359 TH/MM3 (150-450); RED CELL DISTRIBUTION WIDTH 14.3 % (11.6-17.2); WHITE BLOOD COUNT 6.2 TH/MM3 (4.0-11.0)
[2017-09-11 15:53] LABS: PROTHROMBIN TIME - PATIENT 10.1 SEC (9.8-11.6)
[2017-09-11 16:06] LABS: BICARBONATE 23.8 MEQ/L (21.0-32.0); CREATININE 0.9 MG/DL (0.50-1.00)
[2017-09-11] MEDS ORDERED: MIDAZOLAM HCL 2 MG/2 ML VIAL ONE ×2 (16:40)
[2017-09-11] MEDS ORDERED: fentaNYL CITRATE 250 MCG/5 ML AMP ONE (16:40)
[2017-09-11] MEDS ORDERED: LEVOFLOXACIN 500 MG PREMIX INJ 100 ML IV ONE (17:17)
--- NOTE | 2017-09-11 17:35 | PD.RAD ---
Post Procedure Progress Note Pre Procedure Diagnosis: (1) Cervical cancer (2) Obstructive uropathy Post Procedure Diagnosis: (1) Cervical cancer (2) Obstructive uropathy Procedure Date: Sep 11, 2017 Supervising Radiologist: Chris Granda Proceduralist/Assist: FEMI Fraga, RT(R)(CV) Anesthesia: Local, Conscious Sedation Plan of Activity Patient to Unit: Nursing Unit Patient Condition: Good See PACS Report for procedural detail/treatment Drainage Procedure Procedure 1 Imaging Guidance: Fluoroscopy Side: Right Procedure Type: Nephrostomy Procedure: Replacement Turkish: 8 Drainage: [place] drainage Procedure 2 Imaging Guidance: Fluoroscopy Side: Left Procedure Type: Nephrostomy Procedure: Evaluation Findings: left PCN in good position and patent Chris Granda MD Sep 11, 2017 17:35
--- NOTE | 2017-09-11 18:09 | RADRPT ---
EXAM DATE/TIME: 09/11/2017 17:58 [place] COMPARISON: No previous studies available for comparison. INDICATIONS : Patient with history of hydronephrosis in need of right nephrostomy tube replacement. MEDICAL HISTORY : HTN, HLD, Diabetes, Asthma, A-Fib, COPD, Cervical cancer, Radiation and chemotherapy, Hydronephrosis and renal obstruction SURGICAL HISTORY : Colostomy, Bilateral nephrostomy tubes, Cholecystectomy ENCOUNTER: Subsequent ACUITY: 1 day PAIN SCORE: 8/10 LOCATION: Right flank FLUORO TIME: 1.7 minutes IMAGE SERIES: 1 SEDATION TIME: 30 minutes CONTRAST: 15 cc Omnipaque (iohexol) 350 MEDICATION(S): 1.) 2.5 mg midazolam (Versed) IV 2.) 125 mcg fentanyl (Sublimaze) IV 3.) 500 mg levofloxacin (Levaquin) IV Intra-procedural antibiotics were given as prescribed above. DEVICE(S): 1.) 8 Czech X25CM Expel nephrostomy catheter PROCEDURE : 1. fluoroscopic guided percutaneous left nephrostomy tube replacement. 2. Antegrade percutaneous pyelogram. 3. left nephrostomy catheter injection and fluoroscopic evaluation. 4. Conscious sedation with continuous EKG and oximetry monitoring. The risks, benefits and alternatives to the procedure were explained and verbal and written consent w as obtained. The site was prepped in sterile fashion. Full sterile technique was used, including ca p, mask, sterile gloves and gown and a large sterile sheet. Hand hygiene and 2% chlorhexidine and/or betadine/alcohol prep was utilized per protocol for cutaneous antisepsis. Sterile gel and sterile probe cover were utilized for ultrasound guidance. The skin and subcutaneous tissues were infiltrate d with local anesthetic solution. Under direct fluoroscopic guidance, a 6 Czech vessel dilator and angled Glidewire combination was us ed to manipulate through the existing right flank nephrostomy tract back into the right kidney [facility]. The guidewire was manipulated without difficulty down into the right ureter. The tract w as serially dilated and a new 8 Czech nephrostomy pigtail catheter was introduced and formed up in t he right renal pelvis. The catheter was connected to gravity drainage. The contralateral left nephrostomy tube was injected and evaluated under real-time fluoroscopic obser vation revealing good positioning in the kidney and wide patency of the catheter. Conscious sedation was performed with the prescribed dosages and duration as above in the presence of an independent trained radiology nurse to assist in the monitoring of the patient. EKG and oximetry remained stable throughout the procedure. The patient tolerated the procedure well and there were n o complications. The patient was sent to post anesthesia recovery in stable condition. CONCLUSION: Uncomplicated right nephrostomy catheter replacement with fluoroscopic guidance as above. Left nephro stomy catheter evaluation without problem identified. Chris Granda MD on September 11, 2017 at 18:05 Board Certified Radiologist. This report was verified electronically.
== END 2017-09-11 19:43 | disposition home or self-care (01) ==
LOC: NEPC 14:03
DX: T83.022A Displacement of nephrostomy catheter, initial encounter (principal); C53.9 Malignant neoplasm of cervix uteri, unspecified; E07.9 Disorder of thyroid, unspecified; Z79.899 Other long term (current) drug therapy
CPT/HCPCS: 50431; 50432; 80048; 85025; 85610; 85730; 96365; 96366; 96375; 99152; 99153; 99284; C1729; C1769; J1956; J2250; J3010; Q9967

== ENCOUNTER 2018-03-20 10:24 | Inpatient (IN) ==
[2018-03-20] MEDS ORDERED: Propofol Inj 500 MG/50 ML Vial ONE (10:29)
[2018-03-20] MEDS ORDERED: Sod Chloride 0.9% Inj 1,000 ML IV.SIG ONE (10:31)
[2018-03-20] MEDS: Propofol 1000 mg/100 ml Inj 1,000 MG/100 ML BOTTLE IV.CONT PRN ×2 (10:45→21:00)
--- NOTE | 2018-03-20 11:01 | XR ---
EXAM DATE: 03/20/2018 10:56 AM EDT AGE/SEX: 52 years / Female INDICATIONS: Respiratory Failure. ETT placement. CLINICAL DATA: This is the patient's initial encounter. Patient reports that signs and symptoms have been present for 1 day and indicates a pain score of Nonresponsive. MEDICAL/SURGICAL HISTORY: . HTN, HLD, Diabetes, Asthma, A-Fib, COPD, Cervical cancer, Radiatio n and chemotherapy, Hydronephrosis and renal obstruction . Colostomy, Bilateral nephrostomy tubes, Cholecystectomy COMPARISON: No prior exams available for comparison. FINDINGS: Endotracheal tube is present with tip several centimeters above the jarrod. Nasogastric tube tip desc ends to the GE junction region. Some advancement would be recommended. There are several nodular dens ities overlying the left lung. Parenchymal masses should be considered. Right lung is grossly clear. No significant effusion is suspected. Cardiac contours are satisfactory. CONCLUSION: Nodular densities overlying the left chest. Recommend CT examination of the chest for definitive eval uation. Electronically signed by: Chris Granda MD 03/20/2018 10:59 AM EDT
[2018-03-20 11:09] LABS: Baso % (Auto) 0.1 % (0.0-2.0); Hematocrit 41.1 % (35.0-46.0); Hemoglobin 13.8 gm/dL (11.6-15.3); Lymph # (Auto) 0.7 th/mm3 (1.0-4.8); Mean Corpuscular HGB Conc 33.5 % (32.0-36.0); Mean Corpuscular Hemoglobin 29.4 pg (27.0-34.0); Mean Corpuscular Volume 87.7 fL (80.0-100.0); Mean Platelet Volume 6.4 fL (7.0-11.0); Mono # (Auto) 0.6 th/mm3 (0.0-0.9); Mono % (Auto) 4.8 % (0.0-8.0); Neut # (Auto) 11.2 th/mm3 (1.8-7.7); Neut % (Auto) 89.1 % (16.0-70.0); Platelet Count 377 th/mm3 (150-450); Red Blood Count 4.68 mil/mm3 (4.00-5.30); Red Cell Distribution Width 14.8 % (11.6-17.2); White Blood Count 12.6 th/mm3 (4.0-11.0)
--- NOTE | 2018-03-20 11:29 | CT ---
EXAM DATE: 03/20/2018 11:17 AM EDT AGE/SEX: 52 years / Female INDICATIONS: Seizures. CLINICAL DATA: This is the patient's initial encounter. Patient reports that signs and symptoms have been present for 1 day and indicates a pain score of Nonresponsive. MEDICAL/SURGICAL HISTORY: Carcinoma, cervical. Non-responsive. RADIATION DOSE: 56.71 CTDI (mGy) COMPARISON: No prior exams available for comparison. TECHNIQUE: CT of the head without contrast. Using automated exposure control and adjustment of the mA and/or kV according to patient size, radiation dose was kept as low as reasonably achievable to ob tain optimal diagnostic quality images. DICOM format image data is available electronically for revi ew and comparison. FINDINGS: Cerebrum: The ventricles are normal for age. No evidence of midline shift, mass lesion, hemorrhage or acute infarction. No extraaxial fluid collections are seen. Posterior Fossa: The cerebellum and brainstem are intact. The 4th ventricle is midline. The cerebe llopontine angle is unremarkable. Extracranial: The visualized portion of the orbits is intact. Skull: The calvaria is intact. No evidence of skull fracture. CONCLUSION: Negative CT Head non contrast. . Electronically signed by: Chris Granda MD 03/20/2018 11:28 AM EDT
[2018-03-20 11:34] LABS: Alanine Aminotransferase 18 U/L (10-53); Albumin 4.2 g/dL (3.4-5.0); Anion Gap 14 meq/L (5-15); Aspartate Aminotransferase 21 U/L (15-37); Blood Urea Nitrogen 29 mg/dL (7-18); Calcium 9.7 mg/dL (8.5-10.1); Chloride 102 meq/L (98-107); Glomerular Filtration Rate 40 mL/min (>89); Glucose,Random 139 mg/dL (74-106); Magnesium 2.1 mg/dL (1.5-2.5); Phosphorus 2.8 mg/dL (2.5-4.9); Potassium 3.4 meq/L (3.5-5.1); Sodium 138 meq/L (136-145)
[2018-03-20] MEDS ORDERED: fentaNYL Citrate Inj 100 MCG/2 ML Ampul IV.PUSH ONE (11:34)
[2018-03-20 11:35] LABS: Alkaline Phosphatase 86 U/L (45-117); Total Protein 9.4 g/dL (6.4-8.2)
[2018-03-20] MEDS: fentaNYL 10 mcg/mL Premix Drip 2,500 MCG/250 ML BAG IV.SIG PRN (11:40)
[2018-03-20] MEDS ORDERED: Bisacodyl 10 MG Supp RECTAL PRN (11:47)
[2018-03-20 11:49] LABS: ABG Base Excess -0.3 mmol/L (-2-2); ABG PCO2 30 mmHg (38-42); ABG PO2 498 mmHg (61-120)
[2018-03-20] MEDS ORDERED: Potassium Chloride 25 MEQ Effervescent Tablet PO PRN (11:52)
[2018-03-20] MEDS ORDERED: Sodium Phosphate Inj 30 MMOL in Sodium Chlor 0.9% Inj 250 ML IV.SIG PRN (11:52)
[2018-03-20] MEDS ORDERED: Magnesium Oxide 400 MG Tablet PO PRN (11:52)
[2018-03-20] MEDS ORDERED: Magnesium Sulfate Inj 2 GM in Sodium Chlor 0.9% Inj 96 ML IV.SIG PRN (11:52)
[2018-03-20] MEDS ORDERED: Potassium Chlor 40 mEq Premix 40 MEQ/100 ML PIGGYBACK IV.SIG PRN ×2 (11:52)
[2018-03-20] MEDS ORDERED: Potassium Chlor 20 mEq Premix 20 MEQ/100 ML PIGGYBACK IV.SIG PRN (11:52)
[2018-03-20] MEDS ORDERED: Potassium Phosphate 500 MG Soluble Tablet PO PRN ×2 (11:52)
[2018-03-20] MEDS ORDERED: Magnesium Sulfate Inj 4 GM in Sodium Chlor 0.9% Inj 92 ML IV.SIG PRN (11:52)
[2018-03-20] MEDS ORDERED: Potassium Phosphate Inj 30 MMOL in Sodium Chlor 0.9% Inj 250 ML IV.SIG PRN (11:52)
[2018-03-20] MEDS ORDERED: Dextrose 50% in Water 50 ML Vial IV.PUSH PRN (11:54)
[2018-03-20] MEDS ORDERED: Midazolam Inj 5 MG/ML 1 ML Vial ONE (12:17)
--- NOTE | 2018-03-20 12:24 | ED ---
HPI General Chief complaint: Seizure Stated complaint: Medical Time Seen by Provider: 03/20/18 10:28 Source: EMS, RN notes reviewed and old records reviewed Mode of arrival: EMS Limitations: other (intubated) History of Present Illness HPI narrative: 52yF brought in by EMS for seizures. As per EMS, the patient has no known history of seizure disorder, EMS was called by her who said that she had 5 seizures with no return to baseline mental status in between. The patient required intubation prior to arrival in the ED, unable to provide any contribution to HPI. As per previous records, patient has a history of stage IV cervical cancer. Related Data Allergies Allergy/AdvReac Type Severity Reaction Status Date / Time *MDRO Multi-Drug Resistant AdvReac Unknown Uncoded 07/21/17 15:31 Organism Review of Systems ROS Unobtainable ROS Unobtainable: unobtainable due to endotracheal tube PMFSH History History Provided By: Patient Medical History Medical History Cervical cancer (Acute) Surgical History Surgical History History of creation of ostomy (Acute) Social History Social History Substance History: Unable to Obtain Smoking Status: Unknown if ever smoked How Often Do You Have a Drink Containing Alcohol: Unable to Obtain Recent Travel in [facility] within the Last 8 Weeks: No Recent Out of Country Travel within the Last 8 Weeks: No Immunization History Tetanus Immunization: Unable to Assess Hx Influenza Vaccine This Season: Unable to Assess Exam Const Other: Intubated and sedated, unresponsive [facility] Head: normocephalic and atraumatic Face and sinus: normal facial exam Eyes Other: Pupils 3 mm and sluggishly reactive Chest Chest: normal inspection of the chest Resp Other: ETT in place, 7.5 ETT Bilateral breath sounds present with bag ventilations Cardio Rate: regular rate Rhythm: regular rhythm GI Inspection: non-distended Palpation: soft and nontender Other: Ostomy present in lower abdomen Skin General: no rashes or lesions noted Neuro Other: GCS 3T, unresponsive Course Initial Documented Vital Signs Pulse Oximetry 100 03/20/18 10:28 Last Documented Vital Signs Temperature 98.3 F 03/20/18 11:47 Pulse Rate 92 H 03/20/18 12:13 Respiratory Rate 14 03/20/18 12:13 Blood Pressure 229/124 H 03/20/18 12:13 Pulse Oximetry 100 03/20/18 12:13 Critical Care Time Critical Care Time: Yes Total Critical Care Time: 35 Attestation: Total critical care time 35 minutes. This includes examining and stabilizing the patient, gathering a history from a source other than the patient (i.e., chart review, EMS), formulating a differential diagnosis, ordering and interpreting laboratory tests and EKG, ordering and interpreting radiology tests, discussing the patient's care with other providers (Dr. Rose, [facility]), titration of sedation and pain medications, titration of mechanical vent settings, re-evaluation at frequent intervals, and documentation. Amount of time is separate from teaching, counseling the patient and/or family, and exclusive of procedures. Medical Decision Making MDM Narrative Medical decision making narrative: Assessment: 52yF presenting with status epilepticus and acute hypoxic respiratory failure Plan: ETT confirmed with end-tidal and physical exam EKG and monitor CXR Labs CTH This patient cannot go home as she has new-onset status epilepticus of uncertain etiology and acute hypoxic respiratory failure. She will need mechanical ventilation, further workup, IV medications, and critical care admission. Case discussed with Dr. Rose. Medical Screen Exam Complete: Yes Emergency Medical Condition: Yes Medical Records Medical records reviewed: Yes I reviewed the patient's medical records. Lab Data Lab results reviewed: Yes I reviewed the patient's lab results. Result diagrams: 03/20/18 10:45 03/20/18 10:45 Lab Results 03/20/18 03/20/18 03/20/18 Range/Units 10:45 10:45 10:45 WBC 12.6 H (4.0-11.0) th/mm3 RBC 4.68 (4.00-5.30) mil/mm3 Hgb 13.8 (11.6-15.3) gm/dL Hct 41.1 (35.0-46.0) % MCV 87.7 (80.0-100.0) fL MCH 29.4 (27.0-34.0) pg MCHC 33.5 (32.0-36.0) % RDW 14.8 (11.6-17.2) % Plt Count 377 (150-450) th/mm3 MPV 6.4 L (7.0-11.0) fL Neut % (Auto) 89.1 H (16.0-70.0) % Lymph % (Auto) 6.0 L (9.0-44.0) % [place] % (Auto) 4.8 (0.0-8.0) % Eos % (Auto) 0.0 (0.0-4.0) % Baso % (Auto) 0.1 (0.0-2.0) % Neut # (Auto) 11.2 H (1.8-7.7) th/mm3 Lymph # (Auto) 0.7 L (1.0-4.8) th/mm3 [place] # (Auto) 0.6 (0.0-0.9) th/mm3 Eos # (Auto) 0.0 (0.0-0.4) th/mm3 Baso # (Auto) 0.0 (0.0-0.2) th/mm3 WBC Differential . Differential Comment Auto diff final Puncture Site Patient Temperature O2 Saturation (90-100) % ABG pH (7.380-7.420) ABG pCO2 (38-42) mmHg ABG pO2 (61-120) mmHg ABG HCO3 (22-26) mmol/L ABG O2 Content (12.0-20.0) Vol % ABG Base Excess (-2-2) mmol/L ABG Methemoglobin (0-2) % Terry Test Hemoglobin (12.0-16.0) G/DL Carboxyhemoglobin (0-4) % O2 Delivery Device Vent Setting Inspired O2 % Critical Value Sodium 138 (136-145) meq/L Potassium 3.4 L (3.5-5.1) meq/L Chloride 102 (98-107) meq/L Carbon Dioxide 22.0 (21.0-32.0) meq/L Anion Gap 14 (5-15) meq/L BUN 29 H (7-18) mg/dL Creatinine 1.40 H (0.50-1.00) mg/dL Estimated GFR 40 L (>89) mL/min POC Glucose (68-110) mg/dl Random Glucose 139 H (74-106) mg/dL Lactic Acid 2.7 H (0.4-2.0) mmol/L Calcium 9.7 (8.5-10.1) mg/dL Phosphorus 2.8 (2.5-4.9) mg/dL Magnesium 2.1 (1.5-2.5) mg/dL Total Bilirubin 0.3 (0.2-1.0) mg/dL AST 21 (15-37) U/L ALT 18 (10-53) U/L Alkaline Phosphatase 86 (45-117) U/L Total Protein 9.4 H (6.4-8.2) g/dL Albumin 4.2 (3.4-5.0) g/dL Serum Alcohol Less than 3 (0-5) mg/dL 03/20/18 03/20/18 Range/Units 10:46 11:28 WBC (4.0-11.0) th/mm3 RBC (4.00-5.30) mil/mm3 Hgb (11.6-15.3) gm/dL Hct (35.0-46.0) % MCV (80.0-100.0) fL MCH (27.0-34.0) pg MCHC (32.0-36.0) % RDW (11.6-17.2) % Plt Count (150-450) th/mm3 MPV (7.0-11.0) fL Neut % (Auto) (16.0-70.0) % Lymph % (Auto) (9.0-44.0) % [place] % (Auto) (0.0-8.0) % Eos % (Auto) (0.0-4.0) % Baso % (Auto) (0.0-2.0) % Neut # (Auto) (1.8-7.7) th/mm3 Lymph # (Auto) (1.0-4.8) th/mm3 [place] # (Auto) (0.0-0.9) th/mm3 Eos # (Auto) (0.0-0.4) th/mm3 Baso # (Auto) (0.0-0.2) th/mm3 WBC Differential Differential Comment Puncture Site Left radial Patient Temperature 98.6 O2 Saturation 99 (90-100) % ABG pH 7.49 H (7.380-7.420) ABG pCO2 30 L (38-42) mmHg ABG pO2 498 H (61-120) mmHg ABG HCO3 23 (22-26) mmol/L ABG O2 Content 17.8 (12.0-20.0) Vol % ABG Base Excess -0.3 (-2-2) mmol/L ABG Methemoglobin 0.6 (0-2) % Terry Test Present Hemoglobin 11.9 L (12.0-16.0) G/DL Carboxyhemoglobin 0.8 (0-4) % O2 Delivery Device Ventilator Vent Setting Prvc/ac Inspired O2 100 % Critical Value No Sodium (136-145) meq/L Potassium (3.5-5.1) meq/L Chloride (98-107) meq/L Carbon Dioxide (21.0-32.0) meq/L Anion Gap (5-15) meq/L BUN (7-18) mg/dL Creatinine (0.50-1.00) mg/dL Estimated GFR (>89) mL/min POC Glucose 149 H (68-110) mg/dl Random Glucose (74-106) mg/dL Lactic Acid (0.4-2.0) mmol/L Calcium (8.5-10.1) mg/dL Phosphorus (2.5-4.9) mg/dL Magnesium (1.5-2.5) mg/dL Total Bilirubin (0.2-1.0) mg/dL AST (15-37) U/L ALT (10-53) U/L Alkaline Phosphatase (45-117) U/L Total Protein (6.4-8.2) g/dL Albumin (3.4-5.0) g/dL Serum Alcohol (0-5) mg/dL Imaging Data Radiologist's impression: Chest X-Ray 03/20/18 10:28 CONCLUSION: Nodular densities overlying the left chest. Recommend CT examination of the chest for definitive evaluation. Head CT 03/20/18 10:28 CONCLUSION: Negative CT Head non contrast. . ECG Data Attestation: I personally reviewed and interpreted this ECG as follows: Interpretation: Rate: 100 BPM Rhythm: Sinus [place]: Normal Intervals: Incomplete RBBB, short ID, QTc 405 ms Q waves: None T waves: Inverted in V2, V3 ST segments: No elevations or depressions Impression: Sinus tachycardia, incomplete RBBB, no previous EKG available for comparison. Discharge Plan Discharge Disposition Patient Disposition: 30 Still Patient Discharge Condition Condition: Critical Discharge Details Diagnosis: Status epilepticus, Acute respiratory failure with hypoxia Physicians Team ED Provider: Ev Becker Primary Care Provider: UNKNOWN, Attending Provider: Aaron Jackson Other Providers: Candy Stone Discharge Interventions Interventions: Vital Signs Last Done: 03/20/18 11:36 Status ED Status: Admitted Patient
[2018-03-20] MEDS: Insulin NovoLIN Regular Correctional Sugar Inj SQ SCH ×3 (12:36→21:11)
[2018-03-20] MEDS: Dextrose 5%/NaCl 0.9% Inj 1,000 ML IV.CONT SCH (12:44)
[2018-03-20] MEDS: Pantoprazole Inj 40 MG Vial IV.PUSH SCH (12:44)
[2018-03-20] MEDS ORDERED: Midazolam 50 MG/50 ML Inj 50 MG/50 ML BAG IV.CONT ONE (12:52)
[2018-03-20] MEDS: Midazolam 50 MG/50 ML Inj 50 MG/50 ML BAG IV.CONT PRN ×2 (12:57→20:51)
--- NOTE | 2018-03-20 13:11 | MH ---
cc: Aaron Jackson MD DATE OF ADMISSION: 03/20/2018 HISTORY OF PRESENT ILLNESS: The patient is a 52-year-old female with questionable history of cervical cancer, colostomy in place, who was brought in by EMS for status epilepticus. The patient has no known history of seizure disorder. EMS was called by her , who said that she had 5 seizures with no return to baseline mental status. She was intubated in the field. On arrival to the ER the patient was tachycardic, hypertensive with systolic blood pressure 160-200. The patient was placed on a Diprivan and fentanyl infusion for sedation. CT scan of the brain in the ED showed no evidence of any acute intracranial findings. A chest x-ray showed nodular densities overlying the left chest. She is scheduled to undergo CT scan of the chest without contrast. Her laboratory data was significant for mild leukocytosis with a WBC of 12.6; however, no history of fevers. Lactic acid level measured at 2.7. ABG post-intubation showed a pH of 7.49, CO2 of 30, PaO2 498, bicarbonate 30, saturation 99%. In the ER she was given 1 liter bolus of normal saline. PAST MEDICAL HISTORY: Significant for cervical cancer. PAST SURGICAL HISTORY: Colostomy in place. SOCIAL HISTORY: Unobtainable; however, in 07/2017 here her urine toxicology screen was positive for cocaine and opiates. FAMILY HISTORY: Noncontributory to present illness. MEDICATIONS AT HOME: Unknown. ALLERGIES: UNKNOWN. REVIEW OF SYSTEMS: As per HPI, rest of review of systems unobtainable. PHYSICAL EXAMINATION: GENERAL: A 52-year-old female, intubated and on full mechanical ventilation. Hypertensive. VITAL SIGNS: Temperature of 98.3, blood pressure 229/124, pulse of 96, saturation 100%. Vent settings: PRVC rate of 14, tidal volume 450, PEEP of 5, FiO2 of 50%. HEENT: Atraumatic, normocephalic. Pupils are equal, round. Extraocular muscles intact. Conjunctivae pink, anicteric sclerae. Oral mucosa within normal. NECK: Supple. No JVD, adenopathy or thyromegaly. Trachea in the midline. CARDIOVASCULAR: Regular rate and rhythm. Normal S1, S2. No murmurs, rubs, or gallops. PULMONARY: Bilateral equal air entry. No crackles or wheezing. ABDOMEN: Soft, nontender. No distention. Positive bowel sounds. Colostomy in place. EXTREMITIES: No cyanosis, clubbing, edema. NEUROLOGIC: Intubated and sedated. LABORATORY DATA: WBC 12.6, hemoglobin 13.8, hematocrit 41, platelet count 377. Sodium 138, potassium 3.4, chloride 102, CO2 of 22, BUN 29, creatinine 1.40, glucose of 139. Lactic acid 2.7. Total protein 9.4. Total bilirubin 0.3, AST 21, ALT 18, alkaline phosphatase 86. Alcohol level less than 3. IMPRESSION: 1. Vent dependent respiratory failure. 2. Status epilepticus. 3. Encephalopathy. 4. Mild leukocytosis. 5. Acute kidney injury. 6. Mild lactic acidemia. 7. Hypertension. 8. History of cocaine use. 9. History of cervical cancer. RECOMMENDATIONS: 1. Continue with Diprivan and fentanyl infusion for sedation. Will add Versed for vent synchrony. 2. CT scan of the brain in the ED negative for acute intracranial process. We will consult neurology service and give 1 gram loading dose of Cerebyx. 3. Obtain urine drug screen and check EEG. 4. Continue with vent support and maintain sats above 92%. 5. Bronchodilators in the form of DuoNeb every 6 hours. Decrease FiO2 to 40%. 6. The patient for a CT scan of the chest without contrast for further evaluation of pulmonary parenchyma. A chest x-ray in the ED showed nodular densities overlying the left chest. 7. Monitor heart rate and blood pressure closely and maintain MAP greater than 65 mmHg. She was given 1 liter bolus of normal saline. Will place on maintenance fluids D5NS at 75 mL an hour. 8. Place on Cardizem 60 mg 4 times a day for blood pressure and heart rate control. 9. Monitor renal function, I's and O's and electrolyte replacement per protocol. IV fluids as stated above. 10. Keep n.p.o. for now. Place on Protonix 40 mg IV daily for gastrointestinal prophylaxis. 11. Start nutrition support within next 24 hours if remains intubated. 12. Monitor for signs of infection, which include fever and WBC. Followup blood cultures. In addition, we will obtain a sputum culture with Gram stain. Hold off on antibiotics at this time as there is no evidence of any infectious process. We will obtain a sputum culture and urinalysis with culture if indicated. 13. Monitor CBC and coags. 14. Place on sliding scale insulin with Accu-Cheks for glycemic control. 15. Gastrointestinal prophylaxis with Protonix 40 mg daily and deep venous thrombosis prophylaxis with sequential compression devices for now. 16. Further recommendations will be based on hospital course. MD CHLOÉ Morse/maico , 12:34 PM , 12:48 PM
[2018-03-20] MEDS ORDERED: Labetalol HCl Inj 100 MG/20 ML Vial ONE (14:00)
[2018-03-20] MEDS: Labetalol HCl Inj 100 MG/20 ML Vial IV.PUSH PRN (14:00)
--- NOTE | 2018-03-20 14:01 | CT ---
EXAM DATE: 03/20/2018 1:49 PM EDT AGE/SEX: 52 years / Female INDICATIONS: Abnormal chest x-ray nodular densities left lung leukocytosis CLINICAL DATA: This is the patient's initial encounter. Patient reports that signs and symptoms have been present for 1 day and indicates a pain score of Nonresponsive. MEDICAL/SURGICAL HISTORY: . cervical cancer Hysterectomy. Colostomy. RADIATION DOSE: 5.10 CTDI (mGy) ; Combined studies COMPARISON: [facility], CT ABDOMEN & PELVIS W CONTRAST, 09/08/2016. . TECHNIQUE: Multiple contiguous axial images were obtained through the abdomen. Images were obtained using multiple row detector helical technique. Using automated exposure control and adjustment of the mA and/or kV according to patient size, radiation dose was kept as low as reasonably achievable to o btain optimal diagnostic quality images. DICOM format image data is available electronically for rev iew and comparison. FINDINGS: Lower Lungs: Lung window images show a 1.4 cm nodule laterally in the left lung base. Lung bases are otherwise clear however, the CT scan of the chest shows innumerable mass lesions in both hemithoraces characteristic of metastatic disease Liver: The liver has a homogeneous density without space-occupying lesion. There is no dilation of th e biliary tree. Spleen: Homogeneous density without enlargement. Pancreas: Unremarkable without mass or calcification. Kidneys: Normal in size and shape. No evidence of mass or hydronephrosis. Adrenal Glands: Unremarkable. Aorta: The aorta and proximal iliac vessels are grossly unremarkable without aneurysmal dilation. Bowel/Mesentery: Patient has a left periumbilical ostomy. No bowel obstruction Abdominal Wall: Linear areas of scarring in the flanks bilaterally represent old nephrostomy tube tr acts Retroperitoneum: No evidence of adenopathy in the retrocrural, para-aortic, or deep pelvic regions. Bladder: Decompressed with a Arriola catheter Reproductive Organs: No abnormal masses or calcifications seen. Inguinal: The inguinal region is unremarkable without evidence of adenopathy. Bony Structures: Osseous structures are intact. There is marked thickening of the presacral soft tis sues, however. This was present previously and is basically unchanged. Post Contrast: No abnormal areas of enhancement seen. CONCLUSION: 1. 1.4 cm nodule peripherally in the left lower lobe is concerning for metastatic disease. CT scan o f the chest shows multiple bilateral pulmonary nodules. 2. Left periumbilical ostomy without bowel obstruction. 3. Stable presacral soft tissue thickening. This may represent post radiation changes. Electronically signed by: Ceferino Rosario MD 03/20/2018 1:59 PM EDT
[2018-03-20] MEDS ORDERED: Fosphenytoin Inj 1,000 MGPE in Sodium Chlor 0.9% Inj 50 ML IV.SIG ONE (14:15)
--- NOTE | 2018-03-20 14:21 | CT ---
EXAM DATE: 03/20/2018 1:54 PM EDT AGE/SEX: 52 years / Female INDICATIONS: Abnormal chest xray nodules left lung CLINICAL DATA: This is the patient's initial encounter. Patient reports that signs and symptoms have been present for 3 days and indicates a pain score of Nonresponsive. MEDICAL/SURGICAL HISTORY: . cervical cancer Colostomy. Hysterectomy. RADIATION DOSE: 5.10 CTDI (mGy) ; Combined studies COMPARISON: C, CHEST 1V SINGLE AP, 03/20/2018. . TECHNIQUE: Multiple contiguous axial images were obtained through the chest without contrast. Image s were obtained in suspended respiration using multiple row detector helical technique. Using automa radha exposure control and adjustment of the mA and/or kV according to patient size, radiation dose was kept as low as reasonably achievable to obtain optimal diagnostic quality images. DICOM format imag e data is available electronically for review and comparison. FINDINGS: Lung: Patient is intubated with ET tube in good position. There are at least 8 large well-defined so lid bilateral pulmonary nodules. Largest on the left measures 2.1 cm in the superior segment of the l eft lower lobe. Largest mass on the right measures 2.0 cm in the anterior right middle lobe. Pleura: No effusion, significant pleural thickening or pneumothorax. Mediastinum: Heart is unremarkable without significant pericardial effusion. There are multiple prim arily subcentimeter mediastinal nodes. The largest nodes are in the AP window measuring 9 x 15 mm. Th ere is also left paratracheal adenopathy measuring up to 15 x 25 mm. There are also bilateral small s upraclavicular nodes measuring 15 mm on the left and 12 mm on the right. All these nodes demonstrate punctate calcifications Osseous Structures: No abnormal focal lytic or blastic bony lesions. Soft Tissues: Soft tissues are unremarkable. No significant axillary adenopathy. Other: Visualized upper abdomen demonstrates a punctate nonobstructing calyceal calculus in the infe rior pole the right kidney. There is an NGT terminating at the GE junction. CONCLUSION: 1. CT examination confirms findings on chest radiograph with multiple large well-defined solid bilat eral pulmonary nodules measuring up to 2 cm, as above. Overall findings are consistent with metastati c disease in this patient with history of cervical cancer. 2. Mediastinal, left paratracheal and bilateral supraclavicular adenopathy, as above. These nodes de monstrate punctate calcifications. Differential considerations include treated metastatic disease vs granulomatous disease. 3. ETT is in good position. NGT terminates at the GE junction and should be advanced. 4. Punctate nonobstructing right renal calyceal calculus. Electronically signed by: Romie Graham MD 03/20/2018 2:20 PM EDT
[2018-03-20] MEDS: dilTIAZem 60 MG Tablet PO SCH ×2 (14:40→18:54)
[2018-03-20] MEDS ORDERED: niCARdipine Inj 25 MG in Sodium Chlor 0.9% Inj 240 ML IV.CONT PRN (15:29)
[2018-03-20 15:50] LABS: Amphetamine Screen,Urine Neg (Neg); Barbiturate Screen,Urine Neg (Neg); Cannabinoid Screen,Urine Neg (Neg); Cocaine Screen,Urine Pos (Neg)
--- NOTE | 2018-03-20 15:50 | MG ---
cc: Terry De La Vega MD, PhD TEST NUMBER: [id number]. TECHNIQUE: A 17-channel EEG. DESCRIPTION: The background rhythm is slow in the delta frequency at 3-4 Hz. There is a burst suppression type pattern as well with bursts of sharp activity bilaterally occurring every 1-3 seconds lasting 2-3 seconds at a time. No asymmetries or lateralizing features are identified. Photic stimulation does not elicit a driving response. INTERPRETATION: Abnormal study with a burst suppression pattern and generalized slowing consistent with a severe encephalopathic state. Terry De La Vega MD, PhD CYNDY/ts , 02:47 PM , 02:52 PM
--- NOTE | 2018-03-20 15:51 | MB ---
cc: Candy Stone MD DATE: 03/20/2018 REASON FOR CONSULTATION: New onset seizure. HISTORY OF PRESENT ILLNESS: A 52-year-old woman with a history of cervical cancer with colostomy, history of radiation, comes in status. She does not have a history of epilepsy, but apparently she had 5 seizures at home. She did not return to baseline. She was intubated in the field for airway protection. She is currently in the ICU, sedated, on fentanyl, Versed and Diprivan. She was loaded with 1000 fosphenytoin equivalents of Cerebyx. EEG is undergoing when we walked in to see the patient, pending to be interpreted. PAST MEDICAL HISTORY: Cervical cancer. PAST SURGICAL HISTORY: Colostomy. SOCIAL HISTORY: Unable to obtain. Apparently in July 2017 her urine tox screen was positive for cocaine and opiates. FAMILY HISTORY: Unable to obtain. MEDICINES AT HOME: Unknown. ALLERGIES: UNKNOWN. PHYSICAL EXAMINATION: VITAL SIGNS: Temperature is 98.8, pulse 78, respiratory rate 16, blood pressure 169/107. GENERAL: Intubated. The patient is sedated on a ventilator. NEUROLOGIC: Pupils are pinpoint and sluggishly reactive. No gaze preference. She does not withdraw in the upper extremities to any painful stimuli. Minimal withdrawal of the left toe to noxious stimuli. Completely sedated examination. LABORATORY DATA: Reviewed. Potassium 3.4, creatinine 1.4, GFR 40, glucose 149. Lactic acid 2.7, albumin 4.3. LFTs are within normal range. Serum alcohol less than 3. CBC: White count 12, neutrophil percent 89.1. IMAGING: Reports she had a CT of the chest that shows large nodules of the lung bilaterally, possibly consistent with metastatic disease and adenopathy. Please refer to report. CT of the brain did not show anything acute abdomen and pelvis CT shows nodules peripherally at the left lower lobe 1.4 cm, again concerning for metastatic disease. CT of the chest shows multiple bilateral pulmonary nodules. There is a left periumbilical ostomy without bowel obstruction and presacral soft tissue thickening may be post-radiation changes. IMPRESSION: New onset seizure. Etiology still concerning for possible metastatic disease to the brain. Continue her on sedation. She was loaded with Cerebyx will continue 100 fosphenytoin equivalents every 8 hours, check a level, keep her level closer to 15. EEG has been done, report pending. We will go ahead and order an MRI of the brain without initially as her renal parameters are elevated. If needed and her parameters improve, certainly with contrast can be done. Oncology, I believe, has been consulted as well for evaluation of the pulmonary nodules. We will continue to make recommendations accordingly. Continue current care. MD ISIDRO Masterson/jay , 03:01 PM , 03:09 PM
[2018-03-20 15:52] LABS: Amorphous Sediment,Urine Rare /hpf; Bacteria,Urine Few /hpf; Bilirubin,Urine Negative (Negative); Clarity,Urine Hazy (Clear); Color,Urine Yellow (Yellw/Straw); Glucose,Urine (UA) Negative (Negative); Leukocyte Esterase,Urine Trace (Negative); Mucus,Urine Few /lpf (Occasional); Nitrite,Urine Negative (Negative); Specific Gravity,Urine 1.017 (1.002-1.035)
[2018-03-20 15:53] LABS: Opiate Screen,Urine Neg (Neg)
--- NOTE | 2018-03-20 16:10 | ECG ---
Date Performed: 03/20/2018 Time Performed: 11:49:07 PTAGE: 52 years EKG: SINUS TACHYCARDIA WITH SHORT MO INTERVAL INCOMPLETE RIGHT BUNDLE BRANCH BLOCK ABNORMAL ECG NO PREVIOUS TRACING DOCTOR: Scott Diggs Interpretating Date/Time 03/20/2018 16:09:48
--- NOTE | 2018-03-20 16:50 | P.PNWCN ---
Wound Care Nurse Consult Description: Consult for Ostomy Management of abdomen per Dr Jackson Communicated with: Chandni Aryaa RN Recommendation: Mika p 3 armament/ordnance ima technician for any further needs. Additional information: *Patient not seen for ostomy management today* Spoke with TRICIA Tariq regarding ostomy. Chandni states that the ostomy is not new , pouch is intact.
--- NOTE | 2018-03-20 20:44 | MB ---
cc: Edwardo Moreno MD DATE: 03/20/2018 REASON FOR CONSULTATION: Oncology concerned with opinion regarding the patient with history of cervical cancer, admitted with status epilepticus. HISTORY OF PRESENT ILLNESS: The patient is a 52-year-old female admitted to the hospital after which she was brought in with status epilepticus. She was intubated in the field. The patient is currently sedated on the ventilator. History is obtained from medical record. No family member is at the bedside. Reportedly, the patient has history of cervical cancer status post resection. On presentation, she had CT scan, which showed multiple lung nodules and mediastinal adenopathy. PAST MEDICAL HISTORY: 1. Cervical cancer, reportedly had radiation. 2. Seizure disorder. PAST SURGICAL HISTORY: Colostomy. FAMILY HISTORY: Unable to obtain. SOCIAL HISTORY: Unable to obtain, but the medical records show that her urine tox screen was positive for cocaine, opioid in July 2017. ALLERGIES: NO KNOWN DRUG ALLERGIES. MEDICATIONS: 1. DuoNebs. 2. Diltiazem. 3. Fosphenytoin. 4. Fentanyl drip. 5. Protonix. 6. Tania-Colace. REVIEW OF SYSTEMS: Unable to obtain. PHYSICAL EXAMINATION: VITAL SIGNS: Temperature 97.6, blood pressure 99/69. GENERAL: She is sedated on the ventilator. HEENT: Atraumatic. Pupils equal, round, reactive to light. Oropharynx: ET tube. No bleeding noted. NECK: No thyromegaly. No palpable mass. LYMPHATIC: No palpable cervical lymph node. CARDIOVASCULAR: Regular S1, S2. LUNGS: Clear to auscultation anteriorly. ABDOMEN: Colostomy noted. Positive bowel sounds. Soft. EXTREMITIES: No cyanosis or edema. SCD in place. NEUROLOGIC: She is sedated. LABORATORY DATA: I have reviewed her laboratory data dated 03/20/2018. ASSESSMENT: 1. Multiple lung nodules. CT of the chest showed multiple lung nodules, largest measured about 2 cm. There was also mediastinal left paratracheal and bilateral supraclavicular adenopathy. The lymph node has a punctate calcification and granulomatous disease cannot be ruled out. This is worrisome for neoplasm and given her history of cervical cancer, this possibly could be a metastatic disease. The patient will need a biopsy once she is stable. This, however, can be done as an outpatient. She supposedly is followed by an oncologist for her cervical cancer. 2. History of cervical cancer. Reportedly, she had radiation and surgery, we do not have the detailed history of cervical cancer and treatment at this time. 3. Seizure disorder, now with status epilepticus. CT of the head without contrast did not show any acute changes. She has been evaluated by neurology. MRI of the brain has been ordered and pending. With history of cancer we will need to rule out occult DIRECTOR OF MATH metastasis; however, given her renal insufficiency, she cannot receive contrast and MRI may not be as sensitive in picking up small lesion. PLAN: 1. Await brain MRI. 2. We will try to get medical record pertaining treatment for cervical cancer. 3. She eventually will need a biopsy of the lung mass, which are quite accessible, but this can be done as outpatient. The patient can follow with her primary oncologist for the biopsy. 4. Continue supportive care. Thank you Dr. Jackson for asking me to see this patient. MD CHON Renee/ana , 06:13 PM , 06:26 PM JON
[2018-03-20] MEDS: Fosphenytoin Inj 100 MGPE in Sodium Chlor 0.9% Inj 50 ML IV.SIG SCH (21:12)
[2018-03-20] MEDS: Senna/Docusate Sodium 8.6/50 MG Tablet PO SCH (21:14)
[2018-03-21] MEDS: dilTIAZem 60 MG Tablet PO SCH ×5 (00:55→21:00)
[2018-03-21] MEDS: Insulin NovoLIN Regular Correctional Sugar Inj SQ SCH ×5 (00:55→18:36)
[2018-03-21] MEDS ORDERED: Chlorhexidine Gluconate 2% 1 Pack (2 Cloths) TOPICAL PRN (04:00)
[2018-03-21 05:45] LABS: Alanine Aminotransferase 14 U/L (10-53); Albumin 3.2 g/dL (3.4-5.0); Alkaline Phosphatase 66 U/L (45-117); Anion Gap 10 meq/L (5-15); Aspartate Aminotransferase 21 U/L (15-37); Blood Urea Nitrogen 24 mg/dL (7-18); Calcium 8.2 mg/dL (8.5-10.1); Carbon Dioxide 23.6 meq/L (21.0-32.0); Chloride 111 meq/L (98-107); Glomerular Filtration Rate 54 mL/min (>89); Glucose,Random 82 mg/dL (74-106); Magnesium 1.8 mg/dL (1.5-2.5); Potassium 3.6 meq/L (3.5-5.1); Sodium 145 meq/L (136-145); Total Protein 7.3 g/dL (6.4-8.2)
[2018-03-21] MEDS: Fosphenytoin Inj 100 MGPE in Sodium Chlor 0.9% Inj 50 ML IV.SIG SCH ×2 (05:45→13:21)
[2018-03-21] MEDS: Dextrose 5%/NaCl 0.9% Inj 1,000 ML IV.CONT SCH ×2 (05:49→18:02)
[2018-03-21 06:03] LABS: Baso # (Auto) 0.1 th/mm3 (0.0-0.2); Baso % (Auto) 0.7 % (0.0-2.0); Eos % (Auto) 0.4 % (0.0-4.0); Hemoglobin 11.7 gm/dL (11.6-15.3); Lymph # (Auto) 1.2 th/mm3 (1.0-4.8); Lymph % (Auto) 11.4 % (9.0-44.0); Mean Corpuscular HGB Conc 33.3 % (32.0-36.0); Mean Corpuscular Hemoglobin 29.5 pg (27.0-34.0); Mean Corpuscular Volume 88.5 fL (80.0-100.0); Mean Platelet Volume 6.3 fL (7.0-11.0); Mono # (Auto) 1.3 th/mm3 (0.0-0.9); Mono % (Auto) 13.1 % (0.0-8.0); Neut # (Auto) 7.6 th/mm3 (1.8-7.7); Neut % (Auto) 74.4 % (16.0-70.0); Platelet Count 241 th/mm3 (150-450); Red Blood Count 3.96 mil/mm3 (4.00-5.30); Red Cell Distribution Width 14.7 % (11.6-17.2); White Blood Count 10.2 th/mm3 (4.0-11.0)
[2018-03-21] MEDS: Propofol 1000 mg/100 ml Inj 1,000 MG/100 ML BOTTLE IV.CONT PRN ×2 (08:14→13:23)
[2018-03-21] MEDS: Chlorhexidine Gluconate 2% 1 Pack (2 Cloths) TOPICAL SCH (08:15)
[2018-03-21] MEDS: Senna/Docusate Sodium 8.6/50 MG Tablet PO SCH ×2 (09:07→21:00)
[2018-03-21] MEDS: Pantoprazole Inj 40 MG Vial IV.PUSH SCH (09:07)
[2018-03-21] MEDS: fentaNYL 10 mcg/mL Premix Drip 2,500 MCG/250 ML BAG IV.SIG PRN (09:08)
[2018-03-21] MEDS: Labetalol HCl Inj 100 MG/20 ML Vial IV.PUSH PRN (09:21)
--- NOTE | 2018-03-21 10:03 | P.PNCC ---
Subjective Subjective Remarks/Hospital Course: The patient is a 52-year-old female with questionable history of cervical cancer , colostomy in place, who was brought in by EMS for status epilepticus. The patient has no known history of seizure disorder. EMS was called by her , who said that she had 5 seizures with no return to baseline mental status. She was intubated in the field. On arrival to the ER the patient was tachycardic , hypertensive with systolic blood pressure 160-200. The patient was placed on a Diprivan and fentanyl infusion for sedation. CT scan of the brain in the ED showed no evidence of any acute intracranial findings. A chest x-ray showed nodular densities overlying the left chest. She is scheduled to undergo CT scan of the chest without contrast. Her laboratory data was significant for mild leukocytosis with a WBC of 12.6; however, no history of fevers. Lactic acid level measured at 2.7. ABG post-intubation showed a pH of 7.49, CO2 of 30 , PaO2 498, bicarbonate 30, saturation 99%. In the ER she was given 1 liter bolus of normal saline. Urine drug screen was positive for cocaine and benzodiazepines SUBJ 03/21: Patient remains intubated heavily sedated. Overnight no reported seizures. Phenytoin level is 23 slightly supratherapeutic we will hold the dose today repeat level in a.m. MRI of the brain is pending at this time Objective Vital Signs / I&O: Vital Signs 03/20/18 10:28 03/20/18 10:33 03/20/18 10:43 Temperature 98.4 F Pulse Rate 118 H Respiratory Rate 14 19 Blood Pressure 164/105 H Pulse Oximetry 100 100 100 03/20/18 10:56 03/20/18 11:08 03/20/18 11:19 Temperature Pulse Rate 106 H 105 H Respiratory Rate 14 14 Blood Pressure 205/116 H 196/116 H Pulse Oximetry 100 100 100 03/20/18 11:36 03/20/18 11:47 03/20/18 12:13 Temperature 98.3 F Pulse Rate 85 93 H 92 H Respiratory Rate 14 14 14 Blood Pressure 198/100 H 205/111 H 229/124 H Pulse Oximetry 100 100 100 03/20/18 12:48 03/20/18 13:05 03/20/18 13:15 Temperature Pulse Rate 88 97 H Respiratory Rate 14 14 16 Blood Pressure 182/111 H 197/106 H Pulse Oximetry 100 60 L 100 03/20/18 13:39 03/20/18 13:41 03/20/18 13:45 Temperature Pulse Rate 83 85 88 Respiratory Rate 15 16 16 Blood Pressure 161/116 H 214/112 H Pulse Oximetry 100 100 03/20/18 14:00 03/20/18 14:02 03/20/18 14:11 Temperature 98.8 F Pulse Rate 87 86 78 Respiratory Rate 16 16 16 Blood Pressure 196/114 H 169/107 H Pulse Oximetry 100 100 100 03/20/18 14:12 03/20/18 14:16 03/20/18 14:30 Temperature Pulse Rate 78 79 78 Respiratory Rate 16 16 16 Blood Pressure 169/107 H 171/109 H 165/105 H Pulse Oximetry 100 100 100 03/20/18 14:45 03/20/18 15:00 03/20/18 15:01 Temperature Pulse Rate 78 76 76 Respiratory Rate 16 16 16 Blood Pressure 147/96 H 138/94 H Pulse Oximetry 100 100 100 03/20/18 15:16 03/20/18 15:30 03/20/18 15:45 Temperature Pulse Rate 74 71 70 Respiratory Rate 16 16 16 Blood Pressure 112/79 99/69 L 102/72 Pulse Oximetry 100 100 100 03/20/18 15:54 03/20/18 16:00 03/20/18 16:01 Temperature Pulse Rate 70 70 Respiratory Rate 16 16 16 Blood Pressure 97/69 L Pulse Oximetry 100 100 100 03/20/18 16:16 03/20/18 16:30 03/20/18 16:45 Temperature Pulse Rate 70 69 68 Respiratory Rate 16 16 16 Blood Pressure 95/67 L 96/69 L 91/69 L Pulse Oximetry 100 100 100 03/20/18 17:00 03/20/18 17:16 03/20/18 17:30 Temperature Pulse Rate 67 65 64 Respiratory Rate 16 16 16 Blood Pressure 88/63 L 89/61 L 86/59 L Pulse Oximetry 100 100 100 03/20/18 17:45 03/20/18 18:00 03/20/18 18:16 Temperature Pulse Rate 64 63 62 Respiratory Rate 16 16 16 Blood Pressure 85/59 L 83/58 L 82/57 L Pulse Oximetry 100 100 100 03/20/18 18:30 03/20/18 18:45 03/20/18 19:00 Temperature Pulse Rate 62 61 61 Respiratory Rate 16 16 16 Blood Pressure 80/54 L 82/52 L 80/53 L Pulse Oximetry 100 100 100 03/20/18 19:16 03/20/18 20:00 03/20/18 20:32 Temperature 94.5 F L Pulse Rate 60 66 71 Respiratory Rate 16 16 21 Blood Pressure 78/53 L 155/96 H Pulse Oximetry 100 100 100 03/21/18 00:00 03/21/18 02:05 03/21/18 03:31 Temperature 97.5 F L Pulse Rate 73 71 Respiratory Rate 16 16 16 Blood Pressure 158/91 H Pulse Oximetry 100 100 03/21/18 04:00 03/21/18 04:04 03/21/18 07:54 Temperature 99.0 F Pulse Rate 72 72 Respiratory Rate 16 16 16 Blood Pressure 118/66 Pulse Oximetry 100 100 03/21/18 07:55 03/21/18 08:00 03/21/18 09:00 Temperature 99.7 F H Pulse Rate 81 82 Respiratory Rate 16 16 Blood Pressure 177/97 H Pulse Oximetry 97 100 Intake & Output 03/20/18 03/21/18 03/21/18 18:59 06:59 18:59 Intake Total 1070 / 1070 1152 / 1152 152 / 152 Output Total 221 / 221 350 / 350 Balance 849 / 849 802 / 802 152 / 152 Weight 47.6 kg 49.4 kg Intake: IV 1070 / 1070 1152 / 1152 152 / 152 D5W/Normal Saline Inj 1,000 ML 1000 / 1000 @ 75 mls/hr IV.CONT .[id number] [facility] Rx#:[id number] Diprivan 1000 mg/100 ml Inj 1, 100 / 100 100 / 100 000 mg In 100 ml @ 5 MCG/KG/MIN 3.75 mls/hr IV.CONT TITRATE PRN Rx#:[id number] Cerebyx Inj 100 MGPE In NS Inj 52 / 52 52 / 52 50 ML @ 208 mls/hr IV.SIG Q8HR [facility] Rx#:[id number] Cerebyx Inj 1,000 MGPE In NS 70 / 70 Inj 50 ML @ 280 mls/hr IV.SIG ONCE ONE Rx#:[id number] NS Inj 1,000 ML @ Wide Open IV. 1000 / 1000 SIG BOLUS ONE Rx#:[id number] Output: Urine Amount (Catheter) 350 / 350 Indwelling Urethral Catheter 350 / 350 Stool Amount (Stoma) Left Lower Abdomen Gastric Drainage 200 / 200 Right Nare 200 / 200 Other: Date of Last Bowel Movement 03/21/18 03/21/18 Result Diagrams: 03/21/18 05:44 03/21/18 05:05 Objective Remarks: GENERAL: A 52-year-old female, intubated and on full mechanical ventilation. HEENT: Atraumatic, normocephalic. Pupils are equal, round. Extraocular muscles intact. Conjunctivae pink, anicteric sclerae. NECK: Supple. No JVD, adenopathy or thyromegaly. Trachea in the midline. CARDIOVASCULAR: Regular rate and rhythm. Normal S1, S2. No murmurs, rubs, or gallops. PULMONARY: Bilateral equal air entry. No crackles or wheezing. ABDOMEN: Soft, nontender. No distention. Positive bowel sounds. Colostomy in place with formed stools. EXTREMITIES: No cyanosis, clubbing, edema. NEUROLOGIC: Intubated and sedated. Moves purposefully and localizes to pain. No focal deficits Assessment and Plan - Assessment and Plan Plan: IMPRESSION: 1. Acute respiratory failure from inability to protect airway. 2. Status epilepticus. 3. Encephalopathy. 4. Mild leukocytosis. 5. Acute kidney injury. 6. Mild lactic acidemia. 7. Hypertension. 8. Cocaine intoxication, history of cocaine use. 9. Multiple large pulmonary nodules suspected metastatic disease 9. History of cervical cancer. RECOMMENDATIONS: 1. Continue with Diprivan, Versed and fentanyl infusion for sedation and seizure control. After loading dose placed on 100 mg IV every 6 hours fosphenytoin, hold due to level being 23 repeat level in a.m. 2. CT scan of the brain in the ED negative for acute intracranial process. Neurology following and received 1 gram loading dose of Cerebyx. EEG burst suppression pattern and generalized slowing 3. Urine drug screen was positive for cocaine and benzodiazepine 4. Continue with vent support and maintain sats above 92%. 5. Bronchodilators in the form of DuoNeb every 6 hours. Attempt weaning trial after MRI 6. Chest x-ray shows multiple large pulmonary nodules concerning for metastatic disease 7. Monitor heart rate and blood pressure closely and maintain MAP greater than 65 mmHg. She was given 1 liter bolus of normal saline. Continue maintenance fluids D5NS at 75 mL an hour. 8. Place on Cardizem 60 mg 4 times a day for blood pressure and heart rate control. Use labetalol Cardene as needed 9. Monitor renal function, I's and O's and electrolyte replacement per protocol. IV fluids as stated above. 10. Keep n.p.o. for now. Place on Protonix 40 mg IV daily for gastrointestinal prophylaxis. 11. Start nutrition support within next 24 hours if remains intubated. 12. Monitor for signs of infection, which include fever and WBC. Follow-up blood and sputum cultures hold off antibiotics 13. Monitor CBC and coags. 14. Place on sliding scale insulin with Accu-Cheks for glycemic control. 15. Gastrointestinal prophylaxis with Protonix 40 mg daily and deep venous thrombosis prophylaxis with sequential compression devices for now. 16. Further recommendations will be based on hospital course. CCT 35 MIN
--- NOTE | 2018-03-21 10:59 | P.PNONC ---
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 she has had no further seizure activity She is awaiting going down to MRI Objective Vital Signs/Intake & Output: Vital Signs 03/20/18 10:56 03/20/18 11:08 03/20/18 11:19 Temperature Pulse Rate 106 H 105 H Respiratory Rate 14 14 Blood Pressure 205/116 H 196/116 H Pulse Oximetry 100 100 100 03/20/18 11:36 03/20/18 11:47 03/20/18 12:13 Temperature 98.3 F Pulse Rate 85 93 H 92 H Respiratory Rate 14 14 14 Blood Pressure 198/100 H 205/111 H 229/124 H Pulse Oximetry 100 100 100 03/20/18 12:48 03/20/18 13:05 03/20/18 13:15 Temperature Pulse Rate 88 97 H Respiratory Rate 14 14 16 Blood Pressure 182/111 H 197/106 H Pulse Oximetry 100 60 L 100 03/20/18 13:39 03/20/18 13:41 03/20/18 13:45 Temperature Pulse Rate 83 85 88 Respiratory Rate 15 16 16 Blood Pressure 161/116 H 214/112 H Pulse Oximetry 100 100 03/20/18 14:00 03/20/18 14:02 03/20/18 14:11 Temperature 98.8 F Pulse Rate 87 86 78 Respiratory Rate 16 16 16 Blood Pressure 196/114 H 169/107 H Pulse Oximetry 100 100 100 03/20/18 14:12 03/20/18 14:16 03/20/18 14:30 Temperature Pulse Rate 78 79 78 Respiratory Rate 16 16 16 Blood Pressure 169/107 H 171/109 H 165/105 H Pulse Oximetry 100 100 100 03/20/18 14:45 03/20/18 15:00 03/20/18 15:01 Temperature Pulse Rate 78 76 76 Respiratory Rate 16 16 16 Blood Pressure 147/96 H 138/94 H Pulse Oximetry 100 100 100 03/20/18 15:16 03/20/18 15:30 03/20/18 15:45 Temperature Pulse Rate 74 71 70 Respiratory Rate 16 16 16 Blood Pressure 112/79 99/69 L 102/72 Pulse Oximetry 100 100 100 03/20/18 15:54 03/20/18 16:00 03/20/18 16:01 Temperature Pulse Rate 70 70 Respiratory Rate 16 16 16 Blood Pressure 97/69 L Pulse Oximetry 100 100 100 03/20/18 16:16 03/20/18 16:30 03/20/18 16:45 Temperature Pulse Rate 70 69 68 Respiratory Rate 16 16 16 Blood Pressure 95/67 L 96/69 L 91/69 L Pulse Oximetry 100 100 100 03/20/18 17:00 03/20/18 17:16 03/20/18 17:30 Temperature Pulse Rate 67 65 64 Respiratory Rate 16 16 16 Blood Pressure 88/63 L 89/61 L 86/59 L Pulse Oximetry 100 100 100 03/20/18 17:45 03/20/18 18:00 03/20/18 18:16 Temperature Pulse Rate 64 63 62 Respiratory Rate 16 16 16 Blood Pressure 85/59 L 83/58 L 82/57 L Pulse Oximetry 100 100 100 03/20/18 18:30 03/20/18 18:45 03/20/18 19:00 Temperature Pulse Rate 62 61 61 Respiratory Rate 16 16 16 Blood Pressure 80/54 L 82/52 L 80/53 L Pulse Oximetry 100 100 100 03/20/18 19:16 03/20/18 20:00 03/20/18 20:32 Temperature 94.5 F L Pulse Rate 60 66 71 Respiratory Rate 16 16 21 Blood Pressure 78/53 L 155/96 H Pulse Oximetry 100 100 100 03/21/18 00:00 03/21/18 02:05 03/21/18 03:31 Temperature 97.5 F L Pulse Rate 73 71 Respiratory Rate 16 16 16 Blood Pressure 158/91 H Pulse Oximetry 100 100 03/21/18 04:00 03/21/18 04:04 03/21/18 07:54 Temperature 99.0 F Pulse Rate 72 72 Respiratory Rate 16 16 16 Blood Pressure 118/66 Pulse Oximetry 100 100 03/21/18 07:55 03/21/18 08:00 03/21/18 09:00 Temperature 99.7 F H Pulse Rate 81 82 Respiratory Rate 16 16 Blood Pressure 177/97 H Pulse Oximetry 97 100 Intake & Output 03/20/18 03/21/18 03/21/18 18:59 06:59 18:59 Intake Total 1070 / 1070 1152 / 1152 152 / 152 Output Total 221 / 221 350 / 350 Balance 849 / 849 802 / 802 152 / 152 Weight 104 lb 15.04 oz 108 lb 14.534 oz Intake: IV 1070 / 1070 1152 / 1152 152 / 152 D5W/Normal Saline Inj 1,000 ML 1000 / 1000 @ 75 mls/hr IV.CONT .[id number] COUNT INCLUDES THE [facility] Rx#:[id number] Diprivan 1000 mg/100 ml Inj 1, 100 / 100 100 / 100 000 mg In 100 ml @ 5 MCG/KG/MIN 3.75 mls/hr IV.CONT TITRATE PRN Rx#:[id number] Cerebyx Inj 100 MGPE In NS Inj 52 / 52 52 / 52 50 ML @ 208 mls/hr IV.SIG Q8HR COUNT INCLUDES THE [facility] Rx#:[id number] Cerebyx Inj 1,000 MGPE In NS 70 / 70 Inj 50 ML @ 280 mls/hr IV.SIG ONCE ONE Rx#:[id number] NS Inj 1,000 ML @ Wide Open IV. 1000 / 1000 SIG BOLUS ONE Rx#:[id number] Output: Urine Amount (Catheter) 350 / 350 Indwelling Urethral Catheter 350 / 350 Stool Amount (Stoma) Left Lower Abdomen Gastric Drainage 200 / 200 Right Nare 200 / 200 Other: Date of Last Bowel Movement 03/21/18 03/21/18 Result Diagrams: 03/21/18 05:44 03/21/18 05:05 Laboratory Results: Laboratory Results - last 24 hr 03/20/18 03/20/18 03/20/18 10:45 10:45 10:45 WBC 12.6 H RBC 4.68 Hgb 13.8 Hct 41.1 MCV 87.7 MCH 29.4 MCHC 33.5 RDW 14.8 Plt Count 377 MPV 6.4 L Neut % (Auto) 89.1 H Lymph % (Auto) 6.[address] % (Auto) 4.8 Eos % (Auto) 0.0 Baso % (Auto) 0.1 Neut # (Auto) 11.2 H Lymph # (Auto) 0.[address] # (Auto) 0.6 Eos # (Auto) 0.0 Baso # (Auto) 0.0 WBC Differential . Differential Comment Auto diff final Puncture Site Patient Temperature O2 Saturation ABG pH ABG pCO2 ABG pO2 ABG HCO3 ABG O2 Content ABG Base Excess ABG Methemoglobin Terry Test Hemoglobin Carboxyhemoglobin O2 Delivery Device Vent Setting Inspired O2 Critical Value Sodium 138 Potassium 3.4 L Chloride 102 Carbon Dioxide 22.0 Anion Gap 14 BUN 29 H Creatinine 1.40 H Estimated GFR 40 L POC Glucose Random Glucose 139 H Lactic Acid 2.7 H Calcium 9.7 Phosphorus 2.8 Magnesium 2.1 Total Bilirubin 0.3 AST 21 ALT 18 Alkaline Phosphatase 86 Total Protein 9.4 H Albumin 4.2 Urine Color Urine Clarity Urine pH Ur Specific [place] Urine Protein Urine Glucose (UA) Urine Ketones Urine Occult Blood Urine Nitrate Urine Bilirubin Urine Urobilinogen Ur Leukocyte Esterase Urine RBC Urine WBC Amorphous Sediment Urine Bacteria Urine Mucus Nasal Screen MRSA (PCR) Urine Opiates Screen Ur Barbiturates Screen Phenytoin Ur Amphetamines Screen U Benzodiazepines Scrn Urine Cocaine Screen U Cannabinoids Screen Serum Alcohol Less than 3 03/20/18 03/20/18 03/20/18 10:46 11:28 14:20 WBC RBC Hgb Hct MCV MCH MCHC RDW Plt Count MPV Neut % (Auto) Lymph % (Auto) [place] % (Auto) Eos % (Auto) Baso % (Auto) Neut # (Auto) Lymph # (Auto) [place] # (Auto) Eos # (Auto) Baso # (Auto) WBC Differential Differential Comment Puncture Site Left radial Patient Temperature 98.6 O2 Saturation 99 ABG pH 7.49 H ABG pCO2 30 L ABG pO2 498 H ABG HCO3 23 ABG O2 Content 17.8 ABG Base Excess -0.3 ABG Methemoglobin 0.6 Etrry Test Present Hemoglobin 11.9 L Carboxyhemoglobin 0.8 O2 Delivery Device Ventilator Vent Setting Prvc/ac Inspired O2 100 Critical Value No Sodium Potassium Chloride Carbon Dioxide Anion Gap BUN Creatinine Estimated GFR POC Glucose 149 H Random Glucose Lactic Acid Calcium Phosphorus Magnesium Total Bilirubin AST ALT Alkaline Phosphatase Total Protein Albumin Urine Color Urine Clarity Urine pH Ur Specific [place] Urine Protein Urine Glucose (UA) Urine Ketones Urine Occult Blood Urine Nitrate Urine Bilirubin Urine Urobilinogen Ur Leukocyte Esterase Urine RBC Urine WBC Amorphous Sediment Urine Bacteria Urine Mucus Nasal Screen MRSA (PCR) Urine Opiates Screen Neg Ur Barbiturates Screen Neg Phenytoin Ur Amphetamines Screen Neg U Benzodiazepines Scrn Pos H Urine Cocaine Screen Pos H U Cannabinoids Screen Neg Serum Alcohol 03/20/18 03/20/18 03/20/18 14:20 14:30 17:02 WBC RBC Hgb Hct MCV MCH MCHC RDW Plt Count MPV Neut % (Auto) Lymph % (Auto) [place] % (Auto) Eos % (Auto) Baso % (Auto) Neut # (Auto) Lymph # (Auto) [place] # (Auto) Eos # (Auto) Baso # (Auto) WBC Differential Differential Comment Puncture Site Patient Temperature O2 Saturation ABG pH ABG pCO2 ABG pO2 ABG HCO3 ABG O2 Content ABG Base Excess ABG Methemoglobin Terry Test Hemoglobin Carboxyhemoglobin O2 Delivery Device Vent Setting Inspired O2 Critical Value Sodium Potassium Chloride Carbon Dioxide Anion Gap BUN Creatinine Estimated GFR POC Glucose 174 H Random Glucose Lactic Acid Calcium Phosphorus Magnesium Total Bilirubin AST ALT Alkaline Phosphatase Total Protein Albumin Urine Color Yellow Urine Clarity Hazy H Urine pH 5.0 Ur Specific [place] 1.017 Urine Protein 100 H Urine Glucose (UA) Negative Urine Ketones Negative Urine Occult Blood Moderate H Urine Nitrate Negative Urine Bilirubin Negative Urine Urobilinogen Less than 2 Ur Leukocyte Esterase Trace H Urine RBC 63 H Urine WBC 6 H Amorphous Sediment Rare H Urine Bacteria Few H Urine Mucus Few H Nasal Screen MRSA (PCR) Mrsa detected Urine Opiates Screen Ur Barbiturates Screen Phenytoin Ur Amphetamines Screen U Benzodiazepines Scrn Urine Cocaine Screen U Cannabinoids Screen Serum Alcohol 03/20/18 03/20/18 03/21/18 19:30 20:23 00:40 WBC RBC Hgb Hct MCV MCH MCHC RDW Plt Count MPV Neut % (Auto) Lymph % (Auto) [place] % (Auto) Eos % (Auto) Baso % (Auto) Neut # (Auto) Lymph # (Auto) [place] # (Auto) Eos # (Auto) Baso # (Auto) WBC Differential Differential Comment Puncture Site Patient Temperature O2 Saturation ABG pH ABG pCO2 ABG pO2 ABG HCO3 ABG O2 Content ABG Base Excess ABG Methemoglobin Terry Test Hemoglobin Carboxyhemoglobin O2 Delivery Device Vent Setting Inspired O2 Critical Value Sodium Potassium Chloride Carbon Dioxide Anion Gap BUN Creatinine Estimated GFR POC Glucose 110 87 Random Glucose Lactic Acid 2.8 H Calcium Phosphorus Magnesium Total Bilirubin AST ALT Alkaline Phosphatase Total Protein Albumin Urine Color Urine Clarity Urine pH Ur Specific [place] Urine Protein Urine Glucose (UA) Urine Ketones Urine Occult Blood Urine Nitrate Urine Bilirubin Urine Urobilinogen Ur Leukocyte Esterase Urine RBC Urine WBC Amorphous Sediment Urine Bacteria Urine Mucus Nasal Screen MRSA (PCR) Urine Opiates Screen Ur Barbiturates Screen Phenytoin Ur Amphetamines Screen U Benzodiazepines Scrn Urine Cocaine Screen U Cannabinoids Screen Serum Alcohol 03/21/18 03/21/18 03/21/18 05:05 05:44 05:58 WBC 10.2 RBC 3.96 L Hgb 11.7 D Hct 35.0 MCV 88.5 MCH 29.5 MCHC 33.3 RDW 14.7 Plt Count 241 D MPV 6.3 L Neut % (Auto) 74.4 H Lymph % (Auto) 11.4 [place] % (Auto) 13.1 H Eos % (Auto) 0.4 Baso % (Auto) 0.7 Neut # (Auto) 7.6 Lymph # (Auto) 1.2 [place] # (Auto) 1.3 H Eos # (Auto) 0.0 Baso # (Auto) 0.1 WBC Differential . Differential Comment Auto diff final Puncture Site Patient Temperature O2 Saturation ABG pH ABG pCO2 ABG pO2 ABG HCO3 ABG O2 Content ABG Base Excess ABG Methemoglobin Terry Test Hemoglobin Carboxyhemoglobin O2 Delivery Device Vent Setting Inspired O2 Critical Value Sodium 145 Potassium 3.6 Chloride 111 H D Carbon Dioxide 23.6 Anion Gap 10 BUN 24 H Creatinine 1.08 H Estimated GFR 54 L POC Glucose 106 Random Glucose 82 Lactic Acid Calcium 8.2 L D Phosphorus 3.0 Magnesium 1.8 Total Bilirubin 0.2 AST 21 ALT 14 Alkaline Phosphatase 66 Total Protein 7.3 D Albumin 3.2 L D Urine Color Urine Clarity Urine pH Ur Specific [place] Urine Protein Urine Glucose (UA) Urine Ketones Urine Occult Blood Urine Nitrate Urine Bilirubin Urine Urobilinogen Ur Leukocyte Esterase Urine RBC Urine WBC Amorphous Sediment Urine Bacteria Urine Mucus Nasal Screen MRSA (PCR) Urine Opiates Screen Ur Barbiturates Screen Phenytoin 23.0 H Ur Amphetamines Screen U Benzodiazepines Scrn Urine Cocaine Screen U Cannabinoids Screen Serum Alcohol 03/21/18 09:28 WBC RBC Hgb Hct MCV MCH MCHC RDW Plt Count MPV Neut % (Auto) Lymph % (Auto) [place] % (Auto) Eos % (Auto) Baso % (Auto) Neut # (Auto) Lymph # (Auto) [place] # (Auto) Eos # (Auto) Baso # (Auto) WBC Differential Differential Comment Puncture Site Patient Temperature O2 Saturation ABG pH ABG pCO2 ABG pO2 ABG HCO3 ABG O2 Content ABG Base Excess ABG Methemoglobin Terry Test Hemoglobin Carboxyhemoglobin O2 Delivery Device Vent Setting Inspired O2 Critical Value Sodium Potassium Chloride Carbon Dioxide Anion Gap BUN Creatinine Estimated GFR POC Glucose 135 H Random Glucose Lactic Acid Calcium Phosphorus Magnesium Total Bilirubin AST ALT Alkaline Phosphatase Total Protein Albumin Urine Color Urine Clarity Urine pH Ur Specific [place] Urine Protein Urine Glucose (UA) Urine Ketones Urine Occult Blood Urine Nitrate Urine Bilirubin Urine Urobilinogen Ur Leukocyte Esterase Urine RBC Urine WBC Amorphous Sediment Urine Bacteria Urine Mucus Nasal Screen MRSA (PCR) Urine Opiates Screen Ur Barbiturates Screen Phenytoin Ur Amphetamines Screen U Benzodiazepines Scrn Urine Cocaine Screen U Cannabinoids Screen Serum Alcohol Culture Results: Microbiology 03/20/18 16:00 Gram Stain - Final Sputum - Endotracheal Imaging Studies: Impressions Abdomen/Pelvis CT 03/20/18 00:00 CONCLUSION: 1. 1.4 cm nodule peripherally in the left lower lobe is concerning for metastatic disease. CT scan of the chest shows multiple bilateral pulmonary nodules. 2. Left periumbilical ostomy without bowel obstruction. 3. Stable presacral soft tissue thickening. This may represent post radiation changes. Chest X-Ray 03/20/18 10:28 CONCLUSION: Nodular densities overlying the left chest. Recommend CT examination of the chest for definitive evaluation. Head CT 03/20/18 10:28 CONCLUSION: Negative CT Head non contrast. . Chest CT 03/20/18 11:35 CONCLUSION: 1. CT examination confirms findings on chest radiograph with multiple large well-defined solid bilateral pulmonary nodules measuring up to 2 cm, as above. Overall findings are consistent with metastatic disease in this patient with history of cervical cancer. 2. Mediastinal, left paratracheal and bilateral supraclavicular adenopathy, as above. These nodes demonstrate punctate calcifications. Differential considerations include treated metastatic disease vs granulomatous disease. 3. ETT is in good position. NGT terminates at the GE junction and should be advanced. 4. Punctate nonobstructing right renal calyceal calculus. Medications: Active Medications Generic Name Dose Route Start Last Admin Trade Name Freq PRN Reason Stop Dose Admin Albuterol 1 ampul 03/20/18 12:00 03/21/18 07:54 Duoneb Neb ([facility]) NEB 1 ampul Q6HR NEB YAMILETH Administration Chlorhexidine Gluconate 3 pack 03/21/18 04:00 03/21/18 08:15 Chlorhexidine 2% Cloth TOPICAL 03/26/18 03:59 3 pack DAILY@0400 YAMILETH Administration Diltiazem HCl 60 mg 03/20/18 14:00 03/21/18 09:07 Cardizem PO 60 mg QID YAMILETH Administration Propofol 1,000 mg in 100 mls @ 3.75 mls/hr 03/20/18 10:28 03/21/18 08:14 Diprivan 1000 Mg/100 Ml Inj IV.CONT 45 mcg/kg/min TITRATE PRN 33.75 mls/hr Per Protocol Administration Protocol 5 MCG/KG/MIN Fentanyl 2,500 mcg in 250 mls @ 5 mls/hr 03/20/18 11:34 03/21/18 09:08 Fentanyl 10 Mcg/Ml Premix Drip IV.SIG 50 mcg/hr TITRATE PRN 5 mls/hr Per Protocol Administration Protocol 50 MCG/HR Dextrose/Sodium Chloride 1,000 mls @ 75 mls/hr 03/20/18 12:00 03/21/18 05:49 D5w/Normal Saline Inj IV.CONT 75 mls/hr .[id number] YAMILETH Administration Midazolam HCl 50 mg in 50 mls @ 2 mls/hr 03/20/18 12:21 03/20/18 20:51 Versed Inj IV.CONT 2 mg/hr TITRATE PRN 2 mls/hr Per Protocol Administration Protocol 2 MG/HR Fosphenytoin Sodium 100 mgpe/ 52 mls @ 208 mls/hr 03/20/18 22:00 03/21/18 08: 14 Sodium Chloride IV.SIG Infused Q8HR YAMILETH Infusion Insulin Human Regular 0 units 03/20/18 12:00 03/21/18 09:42 Novolin R Correctional Sugar Inj SQ Not Given Q4HR COUNT INCLUDES THE [facility] Protocol Labetalol HCl 20 mg 03/20/18 15:48 03/21/18 09:21 Trandate Inj IV.PUSH 20 mg Q2H PRN Administration SBP > 180 Pantoprazole Sodium 40 mg 03/20/18 12:00 03/21/18 09:07 Protonix Inj IV.PUSH 40 mg DAILY YAMILETH Administration Senna/Docusate Sodium 1 tab 03/20/18 21:00 03/21/18 09:07 Tania-Colace PO 1 tab BID YAMILETH Administration Objective Remarks: GENERAL: Chronically ill-appearing middle-aged female resting in bed intubated SKIN: Warm and dry. HEAD: Normocephalic. EYES: No scleral icterus. No injection or drainage. NECK: Supple, trachea midline. No JVD or lymphadenopathy. CARDIOVASCULAR: Regular rate and rhythm without murmurs. RESPIRATORY: Clear anteriorly. Mechanically ventilated. 40% FiO2 O2 sats GASTROINTESTINAL: Abdomen soft, non-tender, nondistended. EXTREMITIES: No cyanosis. MUSCULOSKELETAL: Adequate muscle tone. NEUROLOGICAL: Sedated Assessment/Plan - Plan 52-year-old female with a reported history of cervical cancer status post resection admitted with seizures. Patient had CT scan on presentation that showed multiple lung nodules measuring up to 2 cm. She also was found to have mediastinal, left paratracheal and bilateral supraclavicular adenopathy. MRI of the brain has been ordered to rule out occult [employer] metastasis. 1. Await MRI results 2. No intervention is currently warranted for pulmonary nodules; these can be biopsied once she is more stable. 3. Supportive care. - Attending Statement The exam, history, and the medical decision-making described in the above note were completed with the assistance of the mid-level provider. I reviewed and agree with the findings presented. I attest that I had a [id number] encounter with the patient on the same day, and personally performed and documented my assessment and findings in the medical record. Remains intubated and sedated. No report of further seizure. MRI is pending. Continue supportive care. Will need biopsy of lung lesions when stable but can be done as outpatient.
[2018-03-21] MEDS ORDERED: Gadobutrol PF 7.5 MMOL/7.5 ML Vial (for RAD) IV.SIG ONE (15:14)
--- NOTE | 2018-03-21 16:31 | MR ---
EXAM DATE: 03/21/2018 3:53 PM EDT AGE/SEX: 52 years / Female INDICATIONS: Metastatic disease. History of cervical cancer and seizure. CLINICAL DATA: This is the patient's initial encounter. Patient reports that signs and symptoms have been present for 1 day and indicates a pain score of Nonresponsive. MEDICAL/SURGICAL HISTORY: Carcinoma, cervical. Colostomy. Bilateral nephrostomy. COMPARISON: [facility] [place], CT HEAD W/O CONTRAST, 03/20/2018. . TECHNIQUE: Multiplanar, multisequence examination of the brain was performed without and with 5 ml Ga davist (gadobutrol) contrast as a single exam dose. FINDINGS: Cerebrum: Ventricles are normal. No midline shift, mass lesion, hemorrhage or acute infarction. No extraaxial fluid collections are seen. The pituitary gland and suprasellar cistern are normal in con figuration. White Matter: There are a few scattered periventricular and subcortical areas of white matter signal intensity change. The largest is in the left frontoparietal high convexity. Posterior Fossa: The cerebellum and brainstem demonstrate no acute abnormality. The 4th ventricle is midline. The cerebellopontine angle is within normal limits. The cerebellar tonsils are normal in p osition. Diffusion Imaging: No areas of restricted diffusion are seen. Extracranial: The visualized sinuses are clear. Post contrast: No abnormal enhancement is identified. CONCLUSION: 1. There are no findings to indicate metastatic disease. No enhancing lesion is seen. 2. There are a few nonspecific areas of periventricular and subcortical white matter signal change. Electronically signed by: Chris Jain MD 03/21/2018 4:29 PM EDT
[2018-03-22] MEDS: Insulin NovoLIN Regular Correctional Sugar Inj SQ SCH ×7 (00:19→20:34)
[2018-03-22] MEDS: Fosphenytoin Inj 100 MGPE in Sodium Chlor 0.9% Inj 50 ML IV.SIG SCH ×4 (00:22→21:51)
[2018-03-22] MEDS: Dextrose 5%/NaCl 0.9% Inj 1,000 ML IV.CONT SCH ×3 (00:57→17:24)
[2018-03-22] MEDS: Chlorhexidine Gluconate 2% 1 Pack (2 Cloths) TOPICAL SCH (05:56)
[2018-03-22] MEDS: Pantoprazole Inj 40 MG Vial IV.PUSH SCH (08:08)
[2018-03-22] MEDS: dilTIAZem 60 MG Tablet PO SCH ×4 (08:08→20:34)
[2018-03-22] MEDS: Senna/Docusate Sodium 8.6/50 MG Tablet PO SCH ×2 (08:08→20:35)
--- NOTE | 2018-03-22 08:52 | P.PNCC ---
Subjective Subjective Remarks/Hospital Course: The patient is a 52-year-old female with questionable history of cervical cancer , colostomy in place, who was brought in by EMS for status epilepticus. The patient has no known history of seizure disorder. EMS was called by her , who said that she had 5 seizures with no return to baseline mental status. She was intubated in the field. On arrival to the ER the patient was tachycardic , hypertensive with systolic blood pressure 160-200. The patient was placed on a Diprivan and fentanyl infusion for sedation. CT scan of the brain in the ED showed no evidence of any acute intracranial findings. A chest x-ray showed nodular densities overlying the left chest. She is scheduled to undergo CT scan of the chest without contrast. Her laboratory data was significant for mild leukocytosis with a WBC of 12.6; however, no history of fevers. Lactic acid level measured at 2.7. ABG post-intubation showed a pH of 7.49, CO2 of 30 , PaO2 498, bicarbonate 30, saturation 99%. In the ER she was given 1 liter bolus of normal saline. Urine drug screen was positive for cocaine and benzodiazepines SUBJ 03/21: Patient remains intubated heavily sedated. Overnight no reported seizures. Phenytoin level is 23 slightly supratherapeutic we will hold the dose today repeat level in a.m. MRI of the brain is pending at this time 03/22: Hypertension persists. She was exquisitely sensitive to intravenous labetalol overnight, we will cut the dose in half. Maintains airway well breathing comfortably. Although continually agitated she stops, responds to commands, moves all 4 extremities to command. Objective Vital Signs / I&O: Vital Signs 03/21/18 09:00 03/21/18 11:47 03/21/18 12:00 Temperature 98.3 F Pulse Rate 82 72 Respiratory Rate 16 16 Blood Pressure 102/60 Pulse Oximetry 100 100 03/21/18 19:48 03/21/18 20:00 03/21/18 22:00 Temperature 100.5 F H Pulse Rate 97 H 93 H 86 Respiratory Rate 17 22 Blood Pressure 138/75 Pulse Oximetry 100 03/21/18 23:30 03/22/18 00:00 03/22/18 02:00 Temperature 100.5 F H 99 F Pulse Rate 93 H 74 83 Respiratory Rate 22 24 Blood Pressure 138/75 117/67 Pulse Oximetry 100 97 03/22/18 03:16 03/22/18 04:00 03/22/18 06:00 Temperature 100.2 F H Pulse Rate 82 84 85 Respiratory Rate 19 24 Blood Pressure 165/91 H Pulse Oximetry 100 03/22/18 07:36 03/22/18 07:39 Temperature 99.9 F H Pulse Rate 93 H 93 H Respiratory Rate 20 Blood Pressure 169/93 H Pulse Oximetry 99 99 Intake & Output 03/21/18 03/22/18 03/22/18 18:59 06:59 18:59 Intake Total 1502 / 1502 1120 / 1120 52 Output Total 325 / 325 250 / 250 Balance 1177 / 1177 870 / 870 Weight 42.5 kg Intake: IV 1402 / 1402 1000 / 1000 D5W/Normal Saline Inj 1,000 ML 1000 / 1000 1000 / 1000 @ 75 mls/hr IV.CONT .[id number] [facility] Rx#:[id number] Versed Inj 50 mg In 50 ml @ 2 0 / 0 MG/HR 2 mls/hr IV.CONT TITRATE PRN Rx#:[id number] Diprivan 1000 mg/100 ml Inj 1, 300 / 300 000 mg In 100 ml @ 5 MCG/KG/MIN 3.75 mls/hr IV.CONT TITRATE PRN Rx#:[id number] Cerebyx Inj 100 MGPE In NS Inj / 52 50 ML @ 208 mls/hr IV.SIG Q8HR [facility] Rx#:[id number] fentaNYL 10 mcg/mL Premix Drip 50 / 50 2,500 mcg In 250 ml @ 50 MCG/HR 5 mls/hr IV.SIG TITRATE PRN Rx #:[id number] Oral 100 / 100 120 / 120 Output: Urine Amount (Catheter) 325 / 325 150 / 150 Indwelling Urethral Catheter 325 / 325 150 / 150 Stool Amount (Stoma) 100 / 100 Left Lower Abdomen 100 / 100 Gastric Drainage 0 / 0 Right Nare 0 / 0 Other: # Voids 6 Date of Last Bowel Movement 03/21/18 03/22/18 03/22/18 Result Diagrams: 03/21/18 05:44 03/21/18 05:05 Objective Remarks: GENERAL: A 52-year-old female. HEENT: Atraumatic, normocephalic. Pupils are equal, round. Extraocular muscles intact. Conjunctivae pink, anicteric sclerae. NECK: Supple. Trachea in the midline. CARDIOVASCULAR: Regular rate and rhythm. Normal S1, S2. No murmurs, rubs, or gallops. PULMONARY: Bilateral equal air entry. No crackles or wheezing. ABDOMEN: Soft, nontender. No distention. Positive bowel sounds. Colostomy in place with formed stools. EXTREMITIES: No cyanosis, clubbing, edema. NEUROLOGIC: Moves purposefully and localizes to pain. No focal deficits Assessment and Plan - Assessment and Plan Plan: IMPRESSION: 1. Acute respiratory failure from inability to protect airway -resolved. 2. Status epilepticus. 3. Encephalopathy. 4. Mild leukocytosis. 5. Acute kidney injury. 6. Mild lactic acidemia. 7. Hypertension. 8. Cocaine intoxication, history of cocaine use. 9. Multiple large pulmonary nodules suspected metastatic disease 9. History of cervical cancer. RECOMMENDATIONS: 1. Add lisinopril [address] scan of the brain in the ED negative for acute intracranial process. Neurology following and received 1 gram loading dose of Cerebyx. EEG burst suppression pattern and generalized slowing 3. Urine drug screen was positive for cocaine and benzodiazepine 4. Nasal cannula O2 to maintain sats greater than 92% 5. Bronchodilators in the form of DuoNeb every 6 hours. Attempt weaning trial after MRI 6. Chest x-ray shows multiple large pulmonary nodules concerning for metastatic disease 7. Monitor heart rate and blood pressure closely and maintain MAP greater than 65 mmHg. She was given 1 liter bolus of normal saline. Continue maintenance fluids D5NS at 75 mL an hour. 8. Place on Cardizem 60 mg 4 times a day for blood pressure and heart rate control. Use labetalol Cardene as needed 9. Monitor renal function, I's and O's and electrolyte replacement per protocol. IV fluids as stated above. 10. Swallow evaluation. Place on Protonix 40 mg IV daily for gastrointestinal prophylaxis. 11. Start nutrition support within next 24 hours if remains intubated. 12. Monitor for signs of infection, which include fever and WBC. Follow-up blood and sputum cultures hold off antibiotics 13. Monitor CBC and coags. 14. Place on sliding scale insulin with Accu-Cheks for glycemic control.
[2018-03-22] MEDS: Lisinopril 10 MG Tablet PO SCH (10:36)
[2018-03-22] MEDS: Labetalol HCl Inj 100 MG/20 ML Vial IV.PUSH PRN (13:44)
--- NOTE | 2018-03-22 14:21 | P.PNONC ---
Subjective Interval history: T-max 100.5 last night Patient moaning in bed as RN attempting to place peripheral IV at bedside Reports she was under the care of Dr. Santoyo out of [place]. Per spouse she has not had treatment in 6 months Reports she is no longer getting treatment because "her body could not handle it " Objective Vital Signs/Intake & Output: Vital Signs 03/21/18 19:48 03/21/18 20:00 03/21/18 22:00 Temperature 100.5 F H Pulse Rate 97 H 93 H 86 Respiratory Rate 17 22 Blood Pressure 138/75 Pulse Oximetry 100 03/21/18 23:30 03/22/18 00:00 03/22/18 02:00 Temperature 100.5 F H 99 F Pulse Rate 93 H 74 83 Respiratory Rate 22 24 Blood Pressure 138/75 117/67 Pulse Oximetry 100 97 03/22/18 03:16 03/22/18 04:00 03/22/18 06:00 Temperature 100.2 F H Pulse Rate 82 84 85 Respiratory Rate 19 24 Blood Pressure 165/91 H Pulse Oximetry 100 03/22/18 07:36 03/22/18 07:39 03/22/18 09:00 Temperature 99.9 F H Pulse Rate 93 H 93 H 82 Respiratory Rate 20 Blood Pressure 169/93 H Pulse Oximetry 99 99 03/22/18 12:00 Temperature 99.8 F H Pulse Rate 86 Respiratory Rate 18 Blood Pressure 157/87 H Pulse Oximetry 98 Intake & Output 03/21/18 03/22/18 03/22/18 18:59 06:59 18:59 Intake Total 1502 / 1502 1120 / 1120 52 / 52 Output Total 325 / 325 250 / 250 Balance 1177 / 1177 870 / 870 52 / 52 Weight 93 lb 11.143 oz Intake: IV 1402 / 1402 1000 / 1000 52 / 52 D5W/Normal Saline Inj 1,000 ML 1000 / 1000 1000 / 1000 @ 75 mls/hr IV.CONT .[id number] [facility] Rx#:[id number] Versed Inj 50 mg In 50 ml @ 2 0 / 0 MG/HR 2 mls/hr IV.CONT TITRATE PRN Rx#:[id number] Diprivan 1000 mg/100 ml Inj 1, 300 / 300 000 mg In 100 ml @ 5 MCG/KG/MIN 3.75 mls/hr IV.CONT TITRATE PRN Rx#:[id number] Cerebyx Inj 100 MGPE In NS Inj 52 / 52 52 / 52 50 ML @ 208 mls/hr IV.SIG Q8HR [facility] Rx#:[id number] fentaNYL 10 mcg/mL Premix Drip 50 / 50 2,500 mcg In 250 ml @ 50 MCG/HR 5 mls/hr IV.SIG TITRATE PRN Rx #:[id number] Oral 100 / 100 120 / 120 Output: Urine Amount (Catheter) 325 / 325 150 / 150 Indwelling Urethral Catheter 325 / 325 150 / 150 Stool Amount (Stoma) 100 / 100 Left Lower Abdomen 100 / 100 Gastric Drainage 0 / 0 Right Nare 0 / 0 Other: # Voids 6 Date of Last Bowel Movement 03/21/18 03/22/18 03/22/18 Result Diagrams: 03/21/18 05:44 03/21/18 05:05 Laboratory Results: Laboratory Results - last 24 hr 03/21/18 03/22/18 03/22/18 20:56 01:42 04:30 POC Glucose 156 H 127 H Phenytoin 18.6 03/22/18 04:35 POC Glucose 110 Phenytoin Culture Results: Microbiology 03/20/18 16:00 Gram Stain - Final Sputum - Endotracheal Sputum Culture - Preliminary S. aureus MRSA 03/20/18 10:45 Aerobic Blood Culture - Preliminary Blood - Peripheral No growth in 2 days Anaerobic Blood Culture - Preliminary No growth in 2 days 03/20/18 10:40 Aerobic Blood Culture - Preliminary Blood - Peripheral No growth in 2 days Anaerobic Blood Culture - Preliminary No growth in 2 days Imaging Studies: Impressions Head MRI 03/21/18 00:00 CONCLUSION: 1. There are no findings to indicate metastatic disease. No enhancing lesion is seen. 2. There are a few nonspecific areas of periventricular and subcortical white matter signal change. Medications: Active Medications Generic Name Dose Route Start Last Admin Trade Name Freq PRN Reason Stop Dose Admin Albuterol 1 ampul 03/20/18 12:00 03/22/18 03:16 Duoneb Neb (Lizandro) NEB 1 ampul Q6HR NEB [facility] Administration Chlorhexidine Gluconate 3 pack 03/21/18 04:00 03/22/18 05:56 Chlorhexidine 2% Cloth TOPICAL 03/26/18 03:59 3 pack DAILY@0400 [facility] Administration Diltiazem HCl 60 mg 03/20/18 14:00 03/22/18 13:44 Cardizem PO 60 mg QID [facility] Administration Propofol 1,000 mg in 100 mls @ 3.75 mls/hr 03/20/18 10:28 03/21/18 18:13 Diprivan 1000 Mg/100 Ml Inj IV.CONT Infused TITRATE PRN Titration Per Protocol Protocol 5 MCG/KG/MIN Fentanyl 2,500 mcg in 250 mls @ 5 mls/hr 03/20/18 11:34 03/21/18 18:13 Fentanyl 10 Mcg/Ml Premix Drip IV.SIG 0 mcg/hr TITRATE PRN 0 mls/hr Per Protocol Titration Protocol 50 MCG/HR Dextrose/Sodium Chloride 1,000 mls @ 75 mls/hr 03/20/18 12:00 03/22/18 06:01 D5w/Normal Saline Inj IV.CONT Not Given .[id number] [facility] Midazolam HCl 50 mg in 50 mls @ 2 mls/hr 03/20/18 12:21 03/22/18 07:17 Versed Inj IV.CONT Infused TITRATE PRN Titration Per Protocol Protocol 2 MG/HR Fosphenytoin Sodium 100 mgpe/ 52 mls @ 208 mls/hr 03/20/18 22:00 03/22/18 13: 44 Sodium Chloride IV.SIG 208 mls/hr Q8HR [facility] Administration Insulin Human Regular 0 units 03/20/18 12:00 03/22/18 13:42 Novolin R Correctional Sugar Inj SQ Not Given Q4HR [facility] Protocol Labetalol HCl 10 mg 03/22/18 09:00 03/22/18 13:44 Trandate Inj IV.PUSH 10 mg Q2H PRN Administration SBP > 180 Lisinopril 10 mg 03/22/18 09:00 03/22/18 10:36 Prinivil PO 10 mg DAILY [facility] Administration Pantoprazole Sodium 40 mg 03/20/18 12:00 03/22/18 08:08 Protonix Inj IV.PUSH 40 mg DAILY [facility] Administration Senna/Docusate Sodium 1 tab 03/20/18 21:00 03/22/18 08:08 Tania-Colace PO Not Given BID [facility] Objective Remarks: GENERAL: Chronically ill-appearing middle-aged female resting in bed awake. She is alert and is somewhat confused SKIN: Warm and dry. HEAD: Normocephalic. EYES: No scleral icterus. No injection or drainage. NECK: Supple, trachea midline. No JVD or lymphadenopathy. CARDIOVASCULAR: Regular rate and rhythm without murmurs. RESPIRATORY: Clear anteriorly. Breathing unlabored at rest. GASTROINTESTINAL: Abdomen soft, non-tender, nondistended. EXTREMITIES: No cyanosis. MUSCULOSKELETAL: Adequate muscle tone. NEUROLOGICAL: Awake and alert. She is somewhat confused. Follows commands. Assessment/Plan - Plan 52-year-old female with a reported history of cervical cancer status post resection admitted with seizures. Patient had CT scan on presentation that showed multiple lung nodules measuring up to 2 cm. She also was found to have mediastinal, left paratracheal and bilateral supraclavicular adenopathy. MRI of the brain has been ordered to rule out occult [employer] metastasis. 1. MRI negative for metastatic disease or other lesion. 2. I have requested records from Dr. Santoyo's office. Likely plan for further workup as outpatient. - Attending Statement The exam, history, and the medical decision-making described in the above note were completed with the assistance of the mid-level provider. I reviewed and agree with the findings presented. I attest that I had a [id number] encounter with the patient on the same day, and personally performed and documented my assessment and findings in the medical record.Pt was extubated. Moaning in discomfort. No further seizure reported. MRI brain w and W/o contrast showed no brain mets. Continue supportive care. Unclear if the lung nodules were new or known mets disease?
--- NOTE | 2018-03-22 16:33 | P.PN ---
Subjective Interval history: extubated s/p mri Physical Exam Vital signs: Vital Signs 03/21/18 19:48 03/21/18 20:00 03/21/18 22:00 Temperature 100.5 F H Pulse Rate 97 H 93 H 86 Respiratory Rate 17 22 Blood Pressure 138/75 Pulse Oximetry 100 03/21/18 23:30 03/22/18 00:00 03/22/18 02:00 Temperature 100.5 F H 99 F Pulse Rate 93 H 74 83 Respiratory Rate 22 24 Blood Pressure 138/75 117/67 Pulse Oximetry 100 97 03/22/18 03:16 03/22/18 04:00 03/22/18 06:00 Temperature 100.2 F H Pulse Rate 82 84 85 Respiratory Rate 19 24 Blood Pressure 165/91 H Pulse Oximetry 100 03/22/18 07:36 03/22/18 07:39 03/22/18 09:00 Temperature 99.9 F H Pulse Rate 93 H 93 H 82 Respiratory Rate 20 Blood Pressure 169/93 H Pulse Oximetry 99 99 03/22/18 12:00 Temperature 99.8 F H Pulse Rate 86 Respiratory Rate 18 Blood Pressure 157/87 H Pulse Oximetry 98 Intake & Output 03/21/18 03/22/18 03/22/18 18:59 06:59 18:59 Intake Total 1502 / 1502 1120 / 1120 104 / 104 Output Total 325 / 325 250 / 250 Balance 1177 / 1177 870 / 870 104 / 104 Weight 42.5 kg Intake: IV 1402 / 1402 1000 / 1000 104 / 104 D5W/Normal Saline Inj 1,000 ML 1000 / 1000 1000 / 1000 @ 75 mls/hr IV.CONT .[id number] [facility] Rx#:[id number] Versed Inj 50 mg In 50 ml @ 2 0 / 0 MG/HR 2 mls/hr IV.CONT TITRATE PRN Rx#:[id number] Diprivan 1000 mg/100 ml Inj 1, 300 / 300 000 mg In 100 ml @ 5 MCG/KG/MIN 3.75 mls/hr IV.CONT TITRATE PRN Rx#:[id number] Cerebyx Inj 100 MGPE In NS Inj 52 / 52 104 / 104 50 ML @ 208 mls/hr IV.SIG Q8HR [facility] Rx#:[id number] fentaNYL 10 mcg/mL Premix Drip 50 / 50 2,500 mcg In 250 ml @ 50 MCG/HR 5 mls/hr IV.SIG TITRATE PRN Rx #:[id number] Oral 100 / 100 120 / 120 Output: Urine Amount (Catheter) 325 / 325 150 / 150 Indwelling Urethral Catheter 325 / 325 150 / 150 Stool Amount (Stoma) 100 / 100 Left Lower Abdomen 100 / 100 Gastric Drainage 0 / 0 Right Nare 0 / 0 Other: # Voids 6 Date of Last Bowel Movement 03/21/18 03/22/18 03/22/18 Narrative: awake alert follows commands aggitated at times yelling. perrla no gaze deviation knows hospital name knows and age does not know month date day year motor nl tone some tremor?myoclonus right foot/leg-stops then restarts. mri w/wo brain neg for mets or cva pht 18.6 uds +cocaine and benzo's a/p sz cervical cancer lung mets substance abuse -will add low dose PB cont cerebyx check eeg watch for any w/d symptoms. oncology f/u, will signout to oncall neurology. - Urinary Catheter Management Indwelling Urethral Catheter Cath placed during this visit: yes, but has since been removed by the nurse Reason for continuing: Continue criteria not met Insertion date: 03/20/18 Removal date: 03/22/18 Removal time: 05:00 Results - Labs CBC & Chem 7: 03/21/18 05:44 03/21/18 05:05 Laboratory Results - last 24 hr 03/21/18 03/22/18 03/22/18 20:56 01:42 04:30 POC Glucose 156 H 127 H Phenytoin 18.6 03/22/18 04:35 POC Glucose 110 Phenytoin Microbiology 03/20/18 16:00 Sputum - Endotracheal Gram Stain - Final 03/20/18 16:00 Sputum - Endotracheal Sputum Culture - Preliminary S. aureus MRSA 03/20/18 10:45 Blood - Peripheral Aerobic Blood Culture - Preliminary No growth in 2 days 03/20/18 10:45 Blood - Peripheral Anaerobic Blood Culture - Preliminary No growth in 2 days 03/20/18 10:40 Blood - Peripheral Aerobic Blood Culture - Preliminary No growth in 2 days 03/20/18 10:40 Blood - Peripheral Anaerobic Blood Culture - Preliminary No growth in 2 days - Imaging Impressions Head MRI 03/21/18 00:00 CONCLUSION: 1. There are no findings to indicate metastatic disease. No enhancing lesion is seen. 2. There are a few nonspecific areas of periventricular and subcortical white matter signal change. Assessment and Plan - Plan eeg add pb cerebyx follow levels
[2018-03-22] MEDS: PHENobarbital Inj 130 MG/ML Vial IM SCH (20:35)
[2018-03-23] MEDS: Insulin NovoLIN Regular Correctional Sugar Inj SQ SCH ×4 (00:10→13:02)
[2018-03-23] MEDS: Chlorhexidine Gluconate 2% 1 Pack (2 Cloths) TOPICAL SCH (04:01)
[2018-03-23] MEDS: Labetalol HCl Inj 100 MG/20 ML Vial IV.PUSH PRN (05:03)
[2018-03-23] MEDS: Dextrose 5%/NaCl 0.9% Inj 1,000 ML IV.CONT SCH (06:40)
[2018-03-23] MEDS: Fosphenytoin Inj 100 MGPE in Sodium Chlor 0.9% Inj 50 ML IV.SIG SCH ×3 (06:43→21:23)
[2018-03-23] MEDS: PHENobarbital Inj 130 MG/ML Vial IM SCH ×2 (08:12→21:22)
[2018-03-23] MEDS: Pantoprazole Inj 40 MG Vial IV.PUSH SCH (08:13)
[2018-03-23] MEDS: Lisinopril 10 MG Tablet PO SCH (08:13)
[2018-03-23] MEDS: dilTIAZem 60 MG Tablet PO SCH ×4 (08:13→21:22)
[2018-03-23] MEDS: Senna/Docusate Sodium 8.6/50 MG Tablet PO SCH ×2 (08:14→21:24)
--- NOTE | 2018-03-23 11:42 | P.PNCC ---
Subjective Subjective Remarks/Hospital Course: The patient is a 52-year-old female with questionable history of cervical cancer , colostomy in place, who was brought in by EMS for status epilepticus. The patient has no known history of seizure disorder. EMS was called by her , who said that she had 5 seizures with no return to baseline mental status. She was intubated in the field. On arrival to the ER the patient was tachycardic , hypertensive with systolic blood pressure 160-200. The patient was placed on a Diprivan and fentanyl infusion for sedation. CT scan of the brain in the ED showed no evidence of any acute intracranial findings. A chest x-ray showed nodular densities overlying the left chest. She is scheduled to undergo CT scan of the chest without contrast. Her laboratory data was significant for mild leukocytosis with a WBC of 12.6; however, no history of fevers. Lactic acid level measured at 2.7. ABG post-intubation showed a pH of 7.49, CO2 of 30 , PaO2 498, bicarbonate 30, saturation 99%. In the ER she was given 1 liter bolus of normal saline. Urine drug screen was positive for cocaine and benzodiazepines SUBJ 03/21: Patient remains intubated heavily sedated. Overnight no reported seizures. Phenytoin level is 23 slightly supratherapeutic we will hold the dose today repeat level in a.m. MRI of the brain is pending at this time 03/22: Hypertension persists. She was exquisitely sensitive to intravenous labetalol overnight, we will cut the dose in half. Maintains airway well breathing comfortably. Although continually agitated she stops, responds to commands, moves all 4 extremities to command. 03/23: Continues to breathe comfortably and protects airway well. Aside from continual movement and agitation she is neurologically improved. Tremors remain problematic. Neurology service following. Will transfer primary care to the hospitalist service. Objective Vital Signs / I&O: Vital Signs 03/22/18 12:00 03/22/18 16:00 03/22/18 20:00 Temperature 99.8 F H 99.8 F H 98 F Pulse Rate 86 78 78 Respiratory Rate 18 28 H Blood Pressure 157/87 H 157/87 H 125/102 H Pulse Oximetry 98 97 98 03/23/18 00:00 03/23/18 04:00 03/23/18 08:00 Temperature 98 F 98.4 F 98.4 F Pulse Rate 76 90 93 H Respiratory Rate 22 22 18 Blood Pressure 145/72 H 200/90 H Pulse Oximetry 98 03/23/18 09:00 03/23/18 10:34 Temperature Pulse Rate 90 79 Respiratory Rate 24 Blood Pressure Pulse Oximetry Intake & Output 03/22/18 03/23/18 03/23/18 18:59 06:59 18:59 Intake Total 1504 / 1504 1292 / 1292 Output Total 200 / 200 325 / 325 Balance 1304 / 1304 967 / 967 Weight 42.5 kg Intake: IV 1104 / 1104 1052 / 1052 D5W/Normal Saline Inj 1,000 ML 1000 / 1000 1000 / 1000 @ 75 mls/hr IV.CONT .[id number] [facility] Rx#:[id number] Versed Inj 50 mg In 50 ml @ 2 0 / 0 MG/HR 2 mls/hr IV.CONT TITRATE PRN Rx#:[id number] Cerebyx Inj 100 MGPE In NS Inj 104 / 104 52 / 52 50 ML @ 208 mls/hr IV.SIG Q8HR [facility] Rx#:[id number] Oral 400 / 400 240 / 240 Output: Stool 125 / 125 Stool Amount (Stoma) 200 / 200 200 / 200 Left Lower Abdomen 200 / 200 200 / 200 Gastric Drainage 0 / 0 Right Nare 0 / 0 Other: # Voids 5 3 Date of Last Bowel Movement 03/22/18 03/23/18 03/23/18 Result Diagrams: 03/21/18 05:44 03/21/18 05:05 Objective Remarks: GENERAL: A 52-year-old female, constantly moving. HEENT: Atraumatic, normocephalic. NECK: Supple. Trachea in the midline. CARDIOVASCULAR: Regular rate and rhythm. Normal S1, S2. No murmurs, rubs, or gallops. PULMONARY: Bilateral equal air entry. No crackles or wheezing. ABDOMEN: Soft, nontender. No distention. Positive bowel sounds. Colostomy in place with formed stools. EXTREMITIES: No cyanosis, clubbing, edema. Warm, well-perfused. NEUROLOGIC: Moves purposefully and follows commands. No focal motor deficits. Assessment and Plan - Assessment and Plan Plan: IMPRESSION: 1. Acute respiratory failure from inability to protect airway -resolved. 2. Status epilepticus. 3. Encephalopathy. 4. Mild leukocytosis. 5. Acute kidney injury. 6. Mild lactic acidemia. 7. Hypertension. 8. Cocaine intoxication, history of cocaine use. 9. Multiple large pulmonary nodules suspected metastatic disease 9. History of cervical cancer. Plan: 1. Continue to monitor tremors and observe response to Pentobarbital 2. Follow liver function tests and electrolytes. 3. Watch closely for evidence of drug withdrawal, particularly alcohol. 4. Follow-up with hematology oncology service regarding metastatic disease. 5. MRSA in sputum is not significant. Chest x-ray and CAT scan are absolutely clear aside from numerous metastases.
[2018-03-23] MEDS: ALPRAZolam 0.5 MG Tablet PO PRN ×2 (13:11→21:22)
--- NOTE | 2018-03-23 17:40 | MG ---
cc: Terry De La Vega MD, PhD DATE OF STUDY: 03/23/2018 TEST NUMBER: [id number] TECHNIQUE: A 17-channel EEG. DESCRIPTION: Background rhythm shows generalized slowing in the delta frequency. Some triphasic waves are present. There is rare muscle artifact. No epileptiform discharges are seen. No lateralizing features were seen. INTERPRETATION: Abnormal study consistent with severe encephalopathy. Terry De La Vega MD, PhD CYNDY/yonathan , 05:24 PM , 05:29 PM
[2018-03-24] MEDS: ALPRAZolam 0.5 MG Tablet PO PRN ×3 (03:55→17:19)
[2018-03-24] MEDS: Chlorhexidine Gluconate 2% 1 Pack (2 Cloths) TOPICAL SCH (03:56)
[2018-03-24 06:03] LABS: Alanine Aminotransferase 13 U/L (10-53); Albumin 2.9 g/dL (3.4-5.0); Alkaline Phosphatase 67 U/L (45-117); Anion Gap 8 meq/L (5-15); Aspartate Aminotransferase 19 U/L (15-37); Blood Urea Nitrogen 6 mg/dL (7-18); Calcium 8.4 mg/dL (8.5-10.1); Carbon Dioxide 27.4 meq/L (21.0-32.0); Chloride 110 meq/L (98-107); Glomerular Filtration Rate Greater Than 89 mL/min (>89); Glucose,Random 100 mg/dL (74-106); Phenytoin (Dilantin) 17.4 mcg/mL (10.0-20.0); Sodium 145 meq/L (136-145); Total Protein 7.4 g/dL (6.4-8.2)
[2018-03-24 06:07] LABS: Potassium 2.2 meq/L (3.5-5.1)
[2018-03-24] MEDS: Dextrose 5%/NaCl 0.9% Inj 1,000 ML IV.CONT SCH ×2 (06:25→10:07)
[2018-03-24] MEDS: Fosphenytoin Inj 100 MGPE in Sodium Chlor 0.9% Inj 50 ML IV.SIG SCH ×3 (08:30→23:53)
[2018-03-24] MEDS: Senna/Docusate Sodium 8.6/50 MG Tablet PO SCH ×2 (08:31→20:41)
[2018-03-24] MEDS: Lisinopril 10 MG Tablet PO SCH (10:06)
[2018-03-24] MEDS: PHENobarbital Inj 130 MG/ML Vial IM SCH ×2 (10:06→20:40)
[2018-03-24] MEDS: dilTIAZem 60 MG Tablet PO SCH ×4 (10:07→20:40)
[2018-03-24] MEDS: Pantoprazole Inj 40 MG Vial IV.PUSH SCH (10:07)
[2018-03-24] MEDS: Potassium Chlor 20 mEq Premix 20 MEQ/100 ML PIGGYBACK IV.SIG PRN ×2 (10:22→19:48)
--- NOTE | 2018-03-24 12:41 | P.PN ---
Subjective Interval history: Follow-up status epilepticus/seizure March 24, 2018-patient seen and examined, no acute event overnight. Denies any chest pain or shortness of breath. Physical Exam Vital signs: Vital Signs 03/23/18 16:00 03/23/18 20:00 03/23/18 20:49 Temperature 98 F 98.2 F Pulse Rate 76 93 H Respiratory Rate 24 17 Blood Pressure 145/68 H 130/74 Pulse Oximetry 96 03/24/18 00:00 03/24/18 04:00 03/24/18 08:00 Temperature 98.2 F 98.0 F Pulse Rate 81 Respiratory Rate 20 20 27 H Blood Pressure 106/71 149/77 H 163/96 H Pulse Oximetry 03/24/18 08:39 Temperature Pulse Rate 76 Respiratory Rate 27 H Blood Pressure Pulse Oximetry Intake & Output 03/23/18 03/24/18 03/24/18 18:59 06:59 18:59 Intake Total 200 / 200 1304 / 1304 Output Total 450 / 450 475 / 475 Balance -250 / -250 829 / 829 Weight 42.5 kg Intake: IV 1104 / 1104 D5W/Normal Saline Inj 1,000 ML 1000 / 1000 @ 75 mls/hr IV.CONT .[id number] [facility] Rx#:[id number] Cerebyx Inj 100 MGPE In NS Inj 104 / 104 50 ML @ 208 mls/hr IV.SIG Q8HR [facility] Rx#:[id number] Oral 200 / 200 200 / 200 Output: Urine 450 / 450 Stool 125 / 125 Urine Amount (Catheter) 150 / 150 Indwelling Urethral Catheter 150 / 150 Stool Amount (Stoma) 200 / 200 Left Lower Abdomen 200 / 200 Gastric Drainage 0 / 0 Right Nare 0 / 0 Other: # Voids 2 Date of Last Bowel Movement 03/23/18 03/23/18 Narrative: GENERAL: NAD SKIN: Warm and dry. HEAD: Normocephalic. EYES: No scleral icterus. No injection or drainage. NECK: Supple, trachea midline. No JVD or lymphadenopathy. CARDIOVASCULAR: Regular rate and rhythm without murmurs, gallops, or rubs. RESPIRATORY: Breath sounds equal bilaterally. No accessory muscle use. GASTROINTESTINAL: Abdomen soft, non-tender, nondistended. MUSCULOSKELETAL: No cyanosis, or edema. BACK: Nontender without obvious deformity. No CVA tenderness. Neuro: CII-XII intact - Urinary Catheter Management Indwelling Urethral Catheter Cath placed during this visit: yes, but has since been removed by the nurse Reason for continuing: Continue criteria not met Insertion date: 03/20/18 Removal date: 03/22/18 Removal time: 05:00 Results - Labs CBC & Chem 7: 03/21/18 05:44 03/24/18 05:15 Laboratory Results - last 24 hr 03/24/18 05:15 Sodium 145 Potassium 2.2 L* Chloride 110 H Carbon Dioxide 27.4 Anion Gap 8 BUN 6 L Creatinine 0.69 Estimated GFR Greater than 89 Random Glucose 100 Calcium 8.4 L Total Bilirubin 0.2 AST 19 ALT 13 Alkaline Phosphatase 67 Total Protein 7.4 Albumin 2.9 L Phenytoin 17.4 Microbiology 03/20/18 10:45 Blood - Peripheral Aerobic Blood Culture - Preliminary No growth in 4 days 03/20/18 10:45 Blood - Peripheral Anaerobic Blood Culture - Preliminary No growth in 4 days 03/20/18 10:40 Blood - Peripheral Aerobic Blood Culture - Preliminary No growth in 4 days 03/20/18 10:40 Blood - Peripheral Anaerobic Blood Culture - Preliminary No growth in 4 days 03/20/18 16:00 Sputum - Endotracheal Gram Stain - Final 03/20/18 16:00 Sputum - Endotracheal Sputum Culture - Final S. aureus MRSA Assessment and Plan - Plan 52-year-old female with 1. Acute respiratory failure from inability to protect airway -resolved. 2. Status epilepticus. Currently on phenobarbital IM q. 12 hour Appreciate input from neurology 3. Encephalopathy-resolved 4. Mild leukocytosis. 5. Acute kidney injury. 6. Mild lactic acidemia-resolved 7. Hypertension. 8. Cocaine intoxication, history of cocaine use. 9. Multiple large pulmonary nodules suspected metastatic disease Appreciate input from hematology 9. History of cervical cancer. Head MRI without any evidence of metastases disease Transfer to [facility]
[2018-03-24] MEDS ORDERED: Haloperidol Inj 5 MG/ML Ampul IV.PUSH PRN (14:59)
[2018-03-24] MEDS ORDERED: LORazepam 1 MG Tablet PO PRN (14:59)
[2018-03-24] MEDS: Morphine Sulfate 30 MG IR Tablet PO PRN (18:29)
[2018-03-25] MEDS: Morphine Sulfate 30 MG IR Tablet PO PRN ×4 (00:30→20:51)
[2018-03-25] MEDS: Dextrose 5%/NaCl 0.9% Inj 1,000 ML IV.CONT SCH ×3 (02:47→11:49)
[2018-03-25] MEDS: Chlorhexidine Gluconate 2% 1 Pack (2 Cloths) TOPICAL SCH (04:22)
[2018-03-25 06:20] LABS: Calcium 8.6 mg/dL (8.5-10.1); Carbon Dioxide 24.6 meq/L (21.0-32.0)
[2018-03-25] MEDS: Fosphenytoin Inj 100 MGPE in Sodium Chlor 0.9% Inj 50 ML IV.SIG SCH ×2 (06:32→13:11)
[2018-03-25] MEDS: dilTIAZem 60 MG Tablet PO SCH ×4 (08:56→20:51)
[2018-03-25] MEDS: Senna/Docusate Sodium 8.6/50 MG Tablet PO SCH ×2 (08:56→20:51)
[2018-03-25] MEDS: PHENobarbital Inj 130 MG/ML Vial IM SCH ×2 (08:56→20:50)
[2018-03-25] MEDS: Lisinopril 10 MG Tablet PO SCH (08:56)
[2018-03-25] MEDS: Potassium Chlor 20 mEq Premix 20 MEQ/100 ML PIGGYBACK IV.SIG PRN ×2 (08:57→13:54)
[2018-03-25] MEDS: Pantoprazole Inj 40 MG Vial IV.PUSH SCH (08:57)
--- NOTE | 2018-03-25 12:53 | P.PN ---
Subjective Interval history: Follow-up status epilepticus/seizure March 24, 2018-patient seen and examined, no acute event overnight. Denies any chest pain or shortness of breath. March 25, 2018-patient seen and examined; stable and no report of any seizure activity. Physical Exam Vital signs: Vital Signs 03/24/18 16:00 03/24/18 20:00 03/25/18 00:00 Temperature 98.4 F 98.2 F Pulse Rate 20 L 74 74 Respiratory Rate 20 21 23 Blood Pressure 134/77 136/80 119/97 H Pulse Oximetry 96 98 03/25/18 04:00 03/25/18 08:00 Temperature 98.5 F 98 F Pulse Rate 64 77 Respiratory Rate 20 22 Blood Pressure 143/68 H 184/96 H Pulse Oximetry 99 Intake & Output 03/24/18 03/25/18 03/25/18 18:59 06:59 18:59 Intake Total 100 / 100 1100 / 1100 Output Total 300 / 300 225 / 225 Balance -200 / -200 875 / 875 Weight 45.6 kg Intake: IV 100 / 100 1100 / 1100 D5W/Normal Saline Inj 1,000 ML 1000 / 1000 @ 75 mls/hr IV.CONT .[id number] [facility] Rx#:[id number] KCl 20 mEq Premix Inj 20 meq In 100 / 100 100 / 100 100 ml @ 50 mls/hr IV.SIG Q2H PRN Rx#:[id number] Output: Stool 300 / 300 Stool Amount (Stoma) 225 / 225 Left Lower Abdomen 225 / 225 Other: # Incontinent Voids 3 # Urine Diapers 5 Date of Last Bowel Movement 03/24/18 Narrative: GENERAL: NAD SKIN: Warm and dry. HEAD: Normocephalic. EYES: No scleral icterus. No injection or drainage. NECK: Supple, trachea midline. No JVD or lymphadenopathy. CARDIOVASCULAR: Regular rate and rhythm without murmurs, gallops, or rubs. RESPIRATORY: Breath sounds equal bilaterally. No accessory muscle use. GASTROINTESTINAL: Abdomen soft, non-tender, nondistended. colostomy bag in place MUSCULOSKELETAL: No cyanosis, or edema. BACK: Nontender without obvious deformity. No CVA tenderness. Neuro: CII-XII intact - Urinary Catheter Management Indwelling Urethral Catheter Cath placed during this visit: yes, but has since been removed by the nurse Reason for continuing: Continue criteria not met Insertion date: 03/20/18 Removal date: 03/22/18 Removal time: 05:00 Results - Labs CBC & Chem 7: 03/21/18 05:44 03/25/18 05:29 Laboratory Results - last 24 hr 03/25/18 05:29 Sodium 145 Potassium 3.0 L D Chloride 112 H Carbon Dioxide 24.6 Anion Gap 8 BUN 6 L Creatinine 0.72 Estimated GFR 86 L Random Glucose 73 L Calcium 8.6 Microbiology 03/20/18 10:45 Blood - Peripheral Aerobic Blood Culture - Final No growth in 5 days 03/20/18 10:45 Blood - Peripheral Anaerobic Blood Culture - Final No growth in 5 days 03/20/18 10:40 Blood - Peripheral Aerobic Blood Culture - Final No growth in 5 days 03/20/18 10:40 Blood - Peripheral Anaerobic Blood Culture - Final No growth in 5 days Assessment and Plan - Plan 52-year-old female with 1. Acute respiratory failure from inability to protect airway -resolved. 2. Status epilepticus. Currently on phenobarbital IM q. 12 hour; Phosphenytoin Appreciate input from neurology 3. Encephalopathy-resolved 4. Mild leukocytosis.Resolved 5. Acute kidney injury.Resolved 6. Mild lactic acidemia-resolved 7. Hypertension. Continue with Lisinopril 8. Cocaine intoxication, history of cocaine use. Counselled to quit 9. Multiple large pulmonary nodules suspected metastatic disease Appreciate input from hematology 9. History of cervical cancer. Head MRI without any evidence of metastases disease Transfer to [facility]
[2018-03-25] MEDS: ALPRAZolam 0.5 MG Tablet PO PRN ×2 (13:54→20:51)
--- NOTE | 2018-03-25 15:28 | P.PNONC ---
Subjective Interval history: Afebrile Pt much more lucid States she is waiting to hear from [employer] Hoping to be discharged soon Objective Vital Signs/Intake & Output: Vital Signs 03/24/18 16:00 03/24/18 20:00 03/25/18 00:00 Temperature 98.4 F 98.2 F Pulse Rate 20 L 74 74 Respiratory Rate 20 21 23 Blood Pressure 134/77 136/80 119/97 H Pulse Oximetry 96 98 03/25/18 04:00 03/25/18 08:00 03/25/18 12:00 Temperature 98.5 F 98 F 98.0 F Pulse Rate 64 77 84 Respiratory Rate 20 22 25 H Blood Pressure 143/68 H 184/96 H 134/84 Pulse Oximetry 99 100 Intake & Output 03/24/18 03/25/18 03/25/18 18:59 06:59 18:59 Intake Total 100 / 100 1100 / 1100 152 / 152 Output Total 300 / 300 225 / 225 Balance -200 / -200 875 / 875 152 / 152 Weight 100 lb 8.493 oz Intake: IV 100 / 100 1100 / 1100 152 / 152 D5W/Normal Saline Inj 1,000 ML 1000 / 1000 @ 75 mls/hr IV.CONT .[id number] [facility] Rx#:[id number] Cerebyx Inj 100 MGPE In NS Inj 52 / 52 50 ML @ 208 mls/hr IV.SIG Q8HR [facility] Rx#:[id number] KCl 20 mEq Premix Inj 20 meq In 100 / 100 100 / 100 100 / 100 100 ml @ 50 mls/hr IV.SIG Q2H PRN Rx#:[id number] Output: Stool 300 / 300 Stool Amount (Stoma) 225 / 225 Left Lower Abdomen 225 / 225 Other: # Incontinent Voids 3 # Urine Diapers 5 Date of Last Bowel Movement 03/24/18 Result Diagrams: 03/21/18 05:44 03/25/18 05:29 Laboratory Results: Laboratory Results - last 24 hr 03/25/18 05:29 Sodium 145 Potassium 3.0 L D Chloride 112 H Carbon Dioxide 24.6 Anion Gap 8 BUN 6 L Creatinine 0.72 Estimated GFR 86 L Random Glucose 73 L Calcium 8.6 Culture Results: Microbiology 03/20/18 10:45 Aerobic Blood Culture - Final Blood - Peripheral No growth in 5 days Anaerobic Blood Culture - Final No growth in 5 days 03/20/18 10:40 Aerobic Blood Culture - Final Blood - Peripheral No growth in 5 days Anaerobic Blood Culture - Final No growth in 5 days 03/20/18 16:00 Gram Stain - Final Sputum - Endotracheal Sputum Culture - Final S. aureus MRSA Medications: Active Medications Generic Name Dose Route Start Last Admin Trade Name Freq PRN Reason Stop Dose Admin Alprazolam 0.5 mg 03/23/18 11:29 03/25/18 13:54 Xanax PO 0.5 mg Q6H PRN Administration AGITATION Chlordiazepoxide 10 mg 03/24/18 14:59 03/25/18 13:54 Librium PO 10 mg Q8H PRN Administration WITHDRAWAL Chlorhexidine Gluconate 3 pack 03/21/18 04:00 03/25/18 04:22 Chlorhexidine 2% Cloth TOPICAL 03/26/18 03:59 3 pack DAILY@0400 [facility] Administration Diltiazem HCl 60 mg 03/20/18 14:00 03/25/18 13:11 Cardizem PO 60 mg QID [facility] Administration Propofol 1,000 mg in 100 mls @ 3.75 mls/hr 03/20/18 10:28 03/21/18 18:13 Diprivan 1000 Mg/100 Ml Inj IV.CONT Infused TITRATE PRN Titration Per Protocol Protocol 5 MCG/KG/MIN Potassium Chloride 20 meq in 100 mls @ 50 mls/hr 03/20/18 11:52 03/25/18 13: 54 Kcl 20 Meq Premix Inj IV.SIG 50 mls/hr Q2H PRN Administration For Potassium 3.3 - 3.5 mEq/L Potassium Chloride 20 meq in 100 mls @ 50 mls/hr 03/20/18 11:52 03/24/18 21: 48 Kcl 20 Meq Premix Inj IV.SIG Infused Q2H PRN Infusion For Potassium 2.8 - 3.2 mEq/L Midazolam HCl 50 mg in 50 mls @ 2 mls/hr 03/20/18 12:21 03/22/18 07:17 Versed Inj IV.CONT Infused TITRATE PRN Titration Per Protocol Protocol 2 MG/HR Fosphenytoin Sodium 100 mgpe/ 52 mls @ 208 mls/hr 03/20/18 22:00 03/25/18 13: 11 Sodium Chloride IV.SIG 100 mls/hr Q8HR [facility] Administration Labetalol HCl 10 mg 03/22/18 09:00 03/23/18 05:03 Trandate Inj IV.PUSH 10 mg Q2H PRN Administration SBP > 180 Lisinopril 10 mg 03/22/18 09:00 03/25/18 08:56 Prinivil PO 10 mg DAILY [facility] Administration Lorazepam 1 mg 03/20/18 11:47 03/23/18 17:43 Ativan Inj IV.PUSH 1 mg Q4H PRN Administration SEIZURES Morphine Sulfate 30 mg 03/24/18 15:00 03/25/18 13:11 Msir PO 30 mg Q6H PRN Administration pain 6-10 Phenobarbital Sodium 60 mg 03/22/18 21:00 03/25/18 08:56 Luminal Inj IM 60 mg Q12HR [facility] Administration Potassium Bicarb/Potassium Chloride 50 meq 03/20/18 11:52 03/24/18 06:23 K-Lyte Cl Eff PO 50 meq UNSCH PRN Administration For Potassium 3.3 - 3.5 mEq/L Senna/Docusate Sodium 1 tab 03/20/18 21:00 03/25/18 08:56 Tania-Colace PO Not Given BID [facility] Objective Remarks: GENERAL: Middle-aged female sitting up in bed brushing her hair in no obvious distress. SKIN: Warm and dry. HEAD: Normocephalic. EYES: No scleral icterus. No injection or drainage. NECK: Supple, trachea midline. No JVD or lymphadenopathy. CARDIOVASCULAR: Regular rate and rhythm without murmurs. RESPIRATORY: Clear anteriorly. Breathing unlabored at rest. GASTROINTESTINAL: Abdomen soft, non-tender, nondistended. EXTREMITIES: No cyanosis. MUSCULOSKELETAL: Adequate muscle tone. NEUROLOGICAL: Awake and alert. Much more lucid than previously seen. Moving all extremities. Assessment/Plan - Plan 52-year-old female with a reported history of cervical cancer status post resection admitted with seizures. Patient had CT scan on presentation that showed multiple lung nodules measuring up to 2 cm. She also was found to have mediastinal, left paratracheal and bilateral supraclavicular adenopathy. MRI of the brain has been ordered to rule out occult MA[employer] metastasis. 1. Patient has close follow-up with her oncologist in [place]. Nothing else to add from our standpoint. We will sign off for now. - Attending Statement The exam, history, and the medical decision-making described in the above note were completed with the assistance of the mid-level provider. I reviewed and agree with the findings presented. I attest that I had a [id number] encounter with the patient on the same day, and personally performed and documented my assessment and findings in the medical record.Patient is alert and MS back to baseline. Her boyfriend was at the bedside. Pt stated she has close f/u with her oncologist. They knew about the lung metastasis. She is waiting to start another treatment regimen but is awaiting pharma assistance to get the new drug. She can f/u with her oncologist after d/c. I will sign off.
[2018-03-26] MEDS: Fosphenytoin Inj 100 MGPE in Sodium Chlor 0.9% Inj 50 ML IV.SIG SCH ×2 (01:26→06:24)
[2018-03-26 04:36] LABS: Baso % (Auto) 0.7 % (0.0-2.0); Eos # (Auto) 0.3 th/mm3 (0.0-0.4); Eos % (Auto) 4.7 % (0.0-4.0); Hematocrit 33.1 % (35.0-46.0); Hemoglobin 11.2 gm/dL (11.6-15.3); Lymph # (Auto) 1.9 th/mm3 (1.0-4.8); Lymph % (Auto) 30.6 % (9.0-44.0); Mean Corpuscular HGB Conc 33.7 % (32.0-36.0); Mean Corpuscular Hemoglobin 29.5 pg (27.0-34.0); Mean Corpuscular Volume 87.4 fL (80.0-100.0); Mean Platelet Volume 6.5 fL (7.0-11.0); Mono # (Auto) 0.6 th/mm3 (0.0-0.9); Neut # (Auto) 3.5 th/mm3 (1.8-7.7); Platelet Count 268 th/mm3 (150-450); Red Blood Count 3.78 mil/mm3 (4.00-5.30); White Blood Count 6.3 th/mm3 (4.0-11.0)
[2018-03-26 04:39] LABS: Alanine Aminotransferase 27 U/L (10-53); Albumin 2.7 g/dL (3.4-5.0); Alkaline Phosphatase 77 U/L (45-117); Anion Gap 6 meq/L (5-15); Aspartate Aminotransferase 30 U/L (15-37); Blood Urea Nitrogen 9 mg/dL (7-18); Calcium 8.4 mg/dL (8.5-10.1); Carbon Dioxide 23.1 meq/L (21.0-32.0); Chloride 111 meq/L (98-107); Glomerular Filtration Rate 78 mL/min (>89); Glucose,Random 69 mg/dL (74-106); Potassium 3.6 meq/L (3.5-5.1); Sodium 140 meq/L (136-145); Total Protein 6.9 g/dL (6.4-8.2)
[2018-03-26] MEDS: ALPRAZolam 0.5 MG Tablet PO PRN (06:35)
[2018-03-26] MEDS: Morphine Sulfate 30 MG IR Tablet PO PRN (06:35)
[2018-03-26] MEDS: Senna/Docusate Sodium 8.6/50 MG Tablet PO SCH (08:15)
[2018-03-26] MEDS: dilTIAZem 60 MG Tablet PO SCH (08:16)
[2018-03-26] MEDS: Lisinopril 10 MG Tablet PO SCH (08:16)
[2018-03-26] MEDS: PHENobarbital Inj 130 MG/ML Vial IM SCH (08:16)
[2018-03-26 09:12] VITALS: TEMP 98.9; O2SAT 100
[2018-03-26 12:53] VITALS: BP 128/68; PULSE 82; RESP 15
--- NOTE | 2018-03-26 12:53 | P.PNIM ---
Subjective Interval history: The patient is a 52-year-old female with questionable history of cervical cancer , colostomy in place, who was brought in by EMS for status epilepticus. The patient has no known history of seizure disorder. EMS was called by her , who said that she had 5 seizures with no return to baseline mental status. She was intubated in the field. On arrival to the ER the patient was tachycardic , hypertensive with systolic blood pressure 160-200. The patient was placed on a Diprivan and fentanyl infusion for sedation. CT scan of the brain in the ED showed no evidence of any acute intracranial findings. A chest x-ray showed nodular densities overlying the left chest. She is scheduled to undergo CT scan of the chest without contrast. Her laboratory data was significant for mild leukocytosis with a WBC of 12.6; however, no history of fevers. Lactic acid level measured at 2.7. ABG post-intubation showed a pH of 7.49, CO2 of 30 , PaO2 498, bicarbonate 30, saturation 99%. In the ER she was given 1 liter bolus of normal saline. Urine drug screen was positive for cocaine and benzodiazepines SUBJ 03/21: Patient remains intubated heavily sedated. Overnight no reported seizures. Phenytoin level is 23 slightly supratherapeutic we will hold the dose today repeat level in a.m. MRI of the brain is pending at this time EXTUBATED Follow-up status epilepticus/seizure March 24, 2018-patient seen and examined, no acute event overnight. Denies any chest pain or shortness of breath. March 25, 2018-patient seen and examined; stable and no report of any seizure activity. 03-26 STILL ON IV SEIZURE MEDS WILL ADJUST AND DISCHARGE TO HOME DW RN AND PT AND CM AND NEUROLOGY patient states needs her fentanyl 75mcg and ms ir 30mg qid states she is out numbers are only slightly off will give 3 days of ms ir #12 will give 1 fentanyl patch wean off phenobarb dilantin rx dc to home E-FORCSE VISUALIZED FOR THE ABOVE INFORMATION LAST WRITTEN DR LUCIANO TRENT ON 02-27 FOR FENTANYL AND 02-25 FOR MS IR 30MG Physical Exam Vital signs: Vital Signs 03/25/18 16:00 03/25/18 20:00 03/26/18 00:00 Temperature 98.1 F 98.7 F 98.1 F Pulse Rate 73 81 74 Respiratory Rate 18 21 20 Blood Pressure 124/74 122/68 122/64 Pulse Oximetry 95 98 03/26/18 03:30 03/26/18 08:00 03/26/18 09:00 Temperature 98.4 F 98.9 F Pulse Rate 69 83 83 Respiratory Rate 14 14 Blood Pressure 123/64 125/84 Pulse Oximetry 98 100 Intake & Output 03/25/18 03/26/18 03/26/18 18:59 06:59 18:59 Intake Total 204 / 204 924 / 924 Output Total 550 / 550 0 / 0 Balance -346 / -346 924 / 924 Weight 45.2 kg Intake: IV 204 / 204 204 / 204 Cerebyx Inj 100 MGPE In NS Inj 104 / 104 104 / 104 50 ML @ 208 mls/hr IV.SIG Q8HR [facility] Rx#:[id number] KCl 20 mEq Premix Inj 20 meq In 100 / 100 100 / 100 100 ml @ 50 mls/hr IV.SIG Q2H PRN Rx#:[id number] Oral 720 / 720 Output: Urine Amount (Catheter) 550 / 550 Indwelling Urethral Catheter 550 / 550 Stool Amount (Stoma) 0 / 0 Left Lower Abdomen 0 / 0 Other: # Incontinent Voids 4 Date of Last Bowel Movement 03/24/18 Weight On Admission 45.6 kg Narrative: GENERAL: NAD SKIN: Warm and dry. HEAD: Normocephalic. EYES: No scleral icterus. No injection or drainage. NECK: Supple, trachea midline. No JVD or lymphadenopathy. CARDIOVASCULAR: Regular rate and rhythm without murmurs, gallops, or rubs. RESPIRATORY: Breath sounds equal bilaterally. No accessory muscle use. GASTROINTESTINAL: Abdomen soft, non-tender, nondistended. colostomy bag in place MUSCULOSKELETAL: No cyanosis, or edema. BACK: Nontender without obvious deformity. No CVA tenderness. Neuro: CII-XII intact - Urinary Catheter Management Indwelling Urethral Catheter Cath placed during this visit: yes, but has since been removed by the nurse Reason for continuing: Continue criteria not met Insertion date: 03/20/18 Removal date: 03/22/18 Removal time: 05:00 Results - Labs CBC & Chem 7: 03/26/18 03:29 03/26/18 03:29 Laboratory Results - last 24 hr 08/21/18 08/21/18 03:29 03:29 WBC 6.3 RBC 3.78 L Hgb 11.2 L Hct 33.1 L MCV 87.4 MCH 29.5 MCHC 33.7 RDW 14.0 Plt Count 268 MPV 6.5 L Neut % (Auto) 55.0 Lymph % (Auto) 30.6 Dodge % (Auto) 9.0 H Eos % (Auto) 4.7 H Baso % (Auto) 0.7 Neut # (Auto) 3.5 Lymph # (Auto) 1.9 [place] # (Auto) 0.6 Eos # (Auto) 0.3 Baso # (Auto) 0.0 WBC Differential . Differential Comment Auto diff final Sodium 140 Potassium 3.6 Chloride 111 H Carbon Dioxide 23.1 Anion Gap 6 BUN 9 Creatinine 0.78 Estimated GFR 78 L Random Glucose 69 L Calcium 8.4 L Total Bilirubin 0.1 L AST 30 ALT 27 Alkaline Phosphatase 77 Total Protein 6.9 Albumin 2.7 L Microbiology 03/20/18 10:45 Blood - Peripheral Aerobic Blood Culture - Final No growth in 5 days 03/20/18 10:45 Blood - Peripheral Anaerobic Blood Culture - Final No growth in 5 days 03/20/18 10:40 Blood - Peripheral Aerobic Blood Culture - Final No growth in 5 days 03/20/18 10:40 Blood - Peripheral Anaerobic Blood Culture - Final No growth in 5 days - Imaging Abdomen/Pelvis CT 03/20/18 00:00 CONCLUSION: 1. 1.4 cm nodule peripherally in the left lower lobe is concerning for metastatic disease. CT scan of the chest shows multiple bilateral pulmonary nodules. 2. Left periumbilical ostomy without bowel obstruction. 3. Stable presacral soft tissue thickening. This may represent post radiation changes. Chest X-Ray 03/20/18 10:28 CONCLUSION: Nodular densities overlying the left chest. Recommend CT examination of the chest for definitive evaluation. Head CT 03/20/18 10:28 CONCLUSION: Negative CT Head non contrast. . Chest CT 03/20/18 11:35 CONCLUSION: 1. CT examination confirms findings on chest radiograph with multiple large well-defined solid bilateral pulmonary nodules measuring up to 2 cm, as above. Overall findings are consistent with metastatic disease in this patient with history of cervical cancer. 2. Mediastinal, left paratracheal and bilateral supraclavicular adenopathy, as above. These nodes demonstrate punctate calcifications. Differential considerations include treated metastatic disease vs granulomatous disease. 3. ETT is in good position. NGT terminates at the GE junction and should be advanced. 4. Punctate nonobstructing right renal calyceal calculus. Head MRI 03/21/18 00:00 CONCLUSION: 1. There are no findings to indicate metastatic disease. No enhancing lesion is seen. 2. There are a few nonspecific areas of periventricular and subcortical white matter signal change. - Procedures INTUBATION AND EXTUBATION AND VENT MANAGEMENT Assessment and Plan - Plan 52-year-old female with 1. Acute respiratory failure from inability to protect airway -resolved. 2. Status epilepticus. Currently on phenobarbital IM q. 12 hour; Phosphenytoin Appreciate input from neurology 3. Encephalopathy-resolved 4. Mild leukocytosis.Resolved 5. Acute kidney injury.Resolved 6. Mild lactic acidemia-resolved 7. Hypertension. Continue with Lisinopril 8. Cocaine intoxication, history of cocaine use. Counselled to quit 9. Multiple large pulmonary nodules suspected metastatic disease Appreciate input from hematology 9. History of cervical cancer. Head MRI without any evidence of metastases disease Transfer to [facility] WANTS TO GO HOME HAS CHRONIC PAIN MEDICATIONS WAS USING COCAINE BEFORE COMING IN ALSO DW RN AND PT patient states needs her fentanyl 75mcg and ms ir 30mg qid states she is out numbers are only slightly off will give 3 days of ms ir #12 will give 1 fentanyl patch wean off phenobarb dilantin rx dc to home E-FORCSE VISUALIZED FOR THE ABOVE INFORMATION LAST WRITTEN DR LUCIANO TRENT ON 02-27 FOR FENTANYL AND 02-25 FOR MS IR 30MG Code Status: FULL CODE Discussed Condition With: RN AND PT AND CM Discharge Planning: DC TO HOME TODAY
--- NOTE | 2018-03-26 13:10 | P.DS ---
Date of admission: 03/20/18 11:49 Primary care physician: LUCIANO TRENT MD Attending physician on discharge: Leonardo Peacock Anticipated date of discharge: 03/26/18 Brief History from admission: The patient is a 52-year-old female with questionable history of cervical cancer , colostomy in place, who was brought in by EMS for status epilepticus. The patient has no known history of seizure disorder. EMS was called by her , who said that she had 5 seizures with no return to baseline mental status. She was intubated in the field. On arrival to the ER the patient was tachycardic , hypertensive with systolic blood pressure 160-200. The patient was placed on a Diprivan and fentanyl infusion for sedation. CT scan of the brain in the ED showed no evidence of any acute intracranial findings. A chest x-ray showed nodular densities overlying the left chest. She is scheduled to undergo CT scan of the chest without contrast. Her laboratory data was significant for mild leukocytosis with a WBC of 12.6; however, no history of fevers. Lactic acid level measured at 2.7. ABG post-intubation showed a pH of 7.49, CO2 of 30 , PaO2 498, bicarbonate 30, saturation 99%. In the ER she was given 1 liter bolus of normal saline. Urine drug screen was positive for cocaine and benzodiazepines SUBJ 03/21: Patient remains intubated heavily sedated. Overnight no reported seizures. Phenytoin level is 23 slightly supratherapeutic we will hold the dose today repeat level in a.m. MRI of the brain is pending at this time EXTUBATED Follow-up status epilepticus/seizure March 24, 2018-patient seen and examined, no acute event overnight. Denies any chest pain or shortness of breath. March 25, 2018-patient seen and examined; stable and no report of any seizure activity. 03-26 STILL ON IV SEIZURE MEDS WILL ADJUST AND DISCHARGE TO HOME DW RN AND PT AND CM AND NEUROLOGY patient states needs her fentanyl 75mcg and ms ir 30mg qid states she is out numbers are only slightly off will give 3 days of ms ir #12 will give 1 fentanyl patch wean off phenobarb dilantin rx dc to home E-FORCSE VISUALIZED FOR THE ABOVE INFORMATION LAST WRITTEN DR LUCIANO TRENT ON 02-27 FOR FENTANYL AND 02-25 FOR MS IR 30MG DS: Diagnosis - Discharge Diagnosis (1) Narcotic withdrawal Status: Acute (2) Narcotic withdrawal epilepsy Status: Acute (3) Chronic pain Status: Chronic (4) Anxiety Status: Chronic (5) Status epilepticus Status: Acute (6) Acute respiratory failure with hypoxia Status: Acute DS: Medications - Discharge Medications Prescriptions: alprazolam [Xanax] 0.5 mg PO Q6H PRN #12 tab PRN Reason: Agitation chlordiazepoxide HCl 10 mg PO Q8H PRN #30 cap PRN Reason: Withdrawal diltiazem HCl 60 mg PO QID #120 tab fentanyl See Label Instructions .ROUTE .COMPLEX #1 each gabapentin 800 mg PO BID #60 tab lisinopril 10 mg PO DAILY #30 tab morphine 30 mg PO Q6H PRN #12 tab PRN Reason: Chronic Pain pantoprazole 40 mg PO DAILY #30 tab phenobarbital 15 mg PO DIRECTED #21 tab phenytoin sodium extended [Dilantin Extended] 100 mg PO TID #90 cap sennosides-docusate sodium [Senna Plus] 2 tab PO BID #120 tab DS: Summary Hospital Course: The patient is a 52-year-old female with questionable history of cervical cancer , colostomy in place, who was brought in by EMS for status epilepticus. The patient has no known history of seizure disorder. EMS was called by her , who said that she had 5 seizures with no return to baseline mental status. She was intubated in the field. On arrival to the ER the patient was tachycardic , hypertensive with systolic blood pressure 160-200. The patient was placed on a Diprivan and fentanyl infusion for sedation. CT scan of the brain in the ED showed no evidence of any acute intracranial findings. A chest x-ray showed nodular densities overlying the left chest. She is scheduled to undergo CT scan of the chest without contrast. Her laboratory data was significant for mild leukocytosis with a WBC of 12.6; however, no history of fevers. Lactic acid level measured at 2.7. ABG post-intubation showed a pH of 7.49, CO2 of 30 , PaO2 498, bicarbonate 30, saturation 99%. In the ER she was given 1 liter bolus of normal saline. Urine drug screen was positive for cocaine and benzodiazepines SUBJ 03/21: Patient remains intubated heavily sedated. Overnight no reported seizures. Phenytoin level is 23 slightly supratherapeutic we will hold the dose today repeat level in a.m. MRI of the brain is pending at this time EXTUBATED Follow-up status epilepticus/seizure March 24, 2018-patient seen and examined, no acute event overnight. Denies any chest pain or shortness of breath. March 25, 2018-patient seen and examined; stable and no report of any seizure activity. 03-26 STILL ON IV SEIZURE MEDS WILL ADJUST AND DISCHARGE TO HOME DW RN AND PT AND CM AND NEUROLOGY patient states needs her fentanyl 75mcg and ms ir 30mg qid states she is out numbers are only slightly off will give 3 days of ms ir #12 will give 1 fentanyl patch wean off phenobarb dilantin rx dc to home E-FORCSE VISUALIZED FOR THE ABOVE INFORMATION LAST WRITTEN DR LUCIANO TRENT ON 02-27 FOR FENTANYL AND 02-25 FOR MS IR 30MG - Time Spent with Patient Total time spent providing and/or coordinating discharge services: Greater than 30 minutes - Quality: VTE Deep Vein Thrombosis/Pulmonary Embolism Present on Admission: No Exam Vital signs: Vital Signs 03/25/18 16:00 03/25/18 20:00 03/26/18 00:00 Temperature 98.1 F 98.7 F 98.1 F Pulse Rate 73 81 74 Respiratory Rate 18 21 20 Blood Pressure 124/74 122/68 122/64 Pulse Oximetry 95 98 03/26/18 03:30 03/26/18 08:00 03/26/18 09:00 Temperature 98.4 F 98.9 F Pulse Rate 69 83 83 Respiratory Rate 14 14 Blood Pressure 123/64 125/84 Pulse Oximetry 98 100 03/26/18 12:00 Temperature 98.9 F Pulse Rate 82 Respiratory Rate 15 Blood Pressure 128/68 Pulse Oximetry 100 Intake & Output 03/25/18 03/26/18 03/26/18 18:59 06:59 18:59 Intake Total 204 / 204 924 / 924 Output Total 550 / 550 0 / 0 Balance -346 / -346 924 / 924 Weight 45.2 kg Intake: IV Cerebyx Inj 100 MGPE In NS Inj 104 / 104 104 / 104 50 ML @ 208 mls/hr IV.SIG Q8HR YAMILETH Rx#:[id number] KCl 20 mEq Premix Inj 20 meq In 100 / 100 100 / 100 100 ml @ 50 mls/hr IV.SIG Q2H PRN Rx#:[id number] Oral 720 / 720 Output: Urine Amount (Catheter) 550 / 550 Indwelling Urethral Catheter 550 / 550 Stool Amount (Stoma) 0 / 0 Left Lower Abdomen 0 / 0 Other: # Incontinent Voids 4 Date of Last Bowel Movement 03/24/18 Weight On Admission 45.6 kg Narrative: GENERAL: NAD SKIN: Warm and dry. HEAD: Normocephalic. EYES: No scleral icterus. No injection or drainage. NECK: Supple, trachea midline. No JVD or lymphadenopathy. CARDIOVASCULAR: Regular rate and rhythm without murmurs, gallops, or rubs. RESPIRATORY: Breath sounds equal bilaterally. No accessory muscle use. GASTROINTESTINAL: Abdomen soft, non-tender, nondistended. colostomy bag in place MUSCULOSKELETAL: No cyanosis, or edema. BACK: Nontender without obvious deformity. No CVA tenderness. Neuro: CII-XII intact Results Procedures completed during hospitalization: INTUBATION AND EXTUBATION AND VENT MANAGEMENT Completed studies during hospitalization: Laboratory Results WBC 6.3 th/mm3 (4.0-11.0) 03/26/18 03:29 RBC 3.78 mil/mm3 (4.00-5.30) L 03/26/18 03:29 Hgb 11.2 gm/dL (11.6-15.3) L 03/26/18 03:29 Hct 33.1 % (35.0-46.0) L 03/26/18 03:29 MCV 87.4 fL (80.0-100.0) 03/26/18 03:29 MCH 29.5 pg (27.0-34.0) 03/26/18 03:29 MCHC 33.7 % (32.0-36.0) 03/26/18 03:29 RDW 14.0 % (11.6-17.2) 03/26/18 03:29 Plt Count 268 th/mm3 (150-450) 03/26/18 03:29 MPV 6.5 fL (7.0-11.0) L 03/26/18 03:29 Neut % (Auto) 55.0 % (16.0-70.0) 03/26/18 03:29 Lymph % (Auto) 30.6 % (9.0-44.0) 03/26/18 03:29 [place] % (Auto) 9.0 % (0.0-8.0) H 03/26/18 03:29 Eos % (Auto) 4.7 % (0.0-4.0) H 03/26/18 03:29 Baso % (Auto) 0.7 % (0.0-2.0) 03/26/18 03:29 Neut # (Auto) 3.5 th/mm3 (1.8-7.7) 03/26/18 03:29 Lymph # (Auto) 1.9 th/mm3 (1.0-4.8) 03/26/18 03:29 [place] # (Auto) 0.6 th/mm3 (0.0-0.9) 03/26/18 03:29 Eos # (Auto) 0.3 th/mm3 (0.0-0.4) 03/26/18 03:29 Baso # (Auto) 0.0 th/mm3 (0.0-0.2) 03/26/18 03:29 WBC Differential . 03/26/18 03:29 Differential Comment Auto diff final 03/26/18 03:29 Puncture Site Left radial 03/20/18 11:28 Patient Temperature 98.6 03/20/18 11:28 O2 Saturation 99 % (90-100) 03/20/18 11:28 ABG pH 7.49 (7.380-7.420) H 03/20/18 11:28 ABG pCO2 30 mmHg (38-42) L 03/20/18 11:28 ABG pO2 498 mmHg (61-120) H 03/20/18 11:28 ABG HCO3 23 mmol/L (22-26) 03/20/18 11:28 ABG O2 Content 17.8 Vol % (12.0-20.0) 03/20/18 11:28 ABG Base Excess -0.3 mmol/L (-2-2) 03/20/18 11:28 ABG Methemoglobin 0.6 % (0-2) 03/20/18 11:28 Terry Test Present 03/20/18 11:28 Hemoglobin 11.9 G/DL (12.0-16.0) L 03/20/18 11:28 Carboxyhemoglobin 0.8 % (0-4) 03/20/18 11:28 O2 Delivery Device Ventilator 03/20/18 11:28 Vent Setting Prvc/ac 03/20/18 11:28 Inspired O2 100 % 03/20/18 11:28 Critical Value No 03/20/18 11:28 Sodium 140 meq/L (136-145) 03/26/18 03:29 Potassium 3.6 meq/L (3.5-5.1) 03/26/18 03:29 Chloride 111 meq/L (98-107) H 03/26/18 03:29 Carbon Dioxide 23.1 meq/L (21.0-32.0) 03/26/18 03:29 Anion Gap 6 meq/L (5-15) 03/26/18 03:29 BUN 9 mg/dL (7-18) 03/26/18 03:29 Creatinine 0.78 mg/dL (0.50-1.00) 03/26/18 03:29 Estimated GFR 78 mL/min (>89) L 03/26/18 03:29 POC Glucose 154 mg/dl (68-110) H 03/22/18 16:52 Random Glucose 69 mg/dL (74-106) L 03/26/18 03:29 Lactic Acid 2.8 mmol/L (0.4-2.0) H 03/20/18 19:30 Calcium 8.4 mg/dL (8.5-10.1) L 03/26/18 03:29 Phosphorus 3.0 mg/dL (2.5-4.9) 03/21/18 05:05 Magnesium 1.8 mg/dL (1.5-2.5) 03/21/18 05:05 Total Bilirubin 0.1 mg/dL (0.2-1.0) L 03/26/18 03:29 AST 30 U/L (15-37) 03/26/18 03:29 ALT 27 U/L (10-53) 03/26/18 03:29 Alkaline Phosphatase 77 U/L (45-117) 03/26/18 03:29 Total Protein 6.9 g/dL (6.4-8.2) 03/26/18 03:29 Albumin 2.7 g/dL (3.4-5.0) L 03/26/18 03:29 Urine Color Yellow (Yellw/Straw) 03/20/18 14:20 Urine Clarity Hazy (Clear) H 03/20/18 14:20 Urine pH 5.0 (5.0-8.5) 03/20/18 14:20 Ur Specific [place] 1.017 (1.002-1.035) 03/20/18 14:20 Urine Protein 100 mg/dL (Neg-Trace) H 03/20/18 14:20 Urine Glucose (UA) Negative mg/dL (Negative) 03/20/18 14:20 Urine Ketones Negative mg/dL (Negative) 03/20/18 14:20 Urine Occult Blood Moderate (Negative) H 03/20/18 14:20 Urine Nitrate Negative (Negative) 03/20/18 14:20 Urine Bilirubin Negative (Negative) 03/20/18 14:20 Urine Urobilinogen Less than 2 mg/dL (Less than 2) 03/20/18 14:20 Ur Leukocyte Esterase Trace (Negative) H 03/20/18 14:20 Urine RBC 63 /hpf (0-3) H 03/20/18 14:20 Urine WBC 6 /hpf (0-5) H 03/20/18 14:20 Amorphous Sediment Rare /hpf (None) H 03/20/18 14:20 Urine Bacteria Few /hpf (None) H 03/20/18 14:20 Urine Mucus Few /lpf (Occasional) H 03/20/18 14:20 Nasal Screen MRSA (PCR) Mrsa detected (Negative) 03/20/18 14:30 Urine Opiates Screen Neg (Neg) 03/20/18 14:20 Ur Barbiturates Screen Neg (Neg) 03/20/18 14:20 Phenytoin 17.4 mcg/mL (10.0-20.0) 03/24/18 05:15 Ur Amphetamines Screen Neg (Neg) 03/20/18 14:20 U Benzodiazepines Scrn Pos (Neg) H 03/20/18 14:20 Urine Cocaine Screen Pos (Neg) H 03/20/18 14:20 U Cannabinoids Screen Neg (Neg) 03/20/18 14:20 Serum Alcohol Less than 3 mg/dL (0-5) 03/20/18 10:45 Impressions Abdomen/Pelvis CT 03/20/18 00:00 CONCLUSION: 1. 1.4 cm nodule peripherally in the left lower lobe is concerning for metastatic disease. CT scan of the chest shows multiple bilateral pulmonary nodules. 2. Left periumbilical ostomy without bowel obstruction. 3. Stable presacral soft tissue thickening. This may represent post radiation changes. Chest X-Ray 03/20/18 10:28 CONCLUSION: Nodular densities overlying the left chest. Recommend CT examination of the chest for definitive evaluation. Head CT 03/20/18 10:28 CONCLUSION: Negative CT Head non contrast. . Chest CT 03/20/18 11:35 CONCLUSION: 1. CT examination confirms findings on chest radiograph with multiple large well-defined solid bilateral pulmonary nodules measuring up to 2 cm, as above. Overall findings are consistent with metastatic disease in this patient with history of cervical cancer. 2. Mediastinal, left paratracheal and bilateral supraclavicular adenopathy, as above. These nodes demonstrate punctate calcifications. Differential considerations include treated metastatic disease vs granulomatous disease. 3. ETT is in good position. NGT terminates at the GE junction and should be advanced. 4. Punctate nonobstructing right renal calyceal calculus. Head MRI 03/21/18 00:00 CONCLUSION: 1. There are no findings to indicate metastatic disease. No enhancing lesion is seen. 2. There are a few nonspecific areas of periventricular and subcortical white matter signal change. Labs on day of discharge: Labs from last 24 hours 03/26/18 03/26/18 03:29 03:29 WBC 6.3 RBC 3.78 L Hgb 11.2 L Hct 33.1 L MCV 87.4 MCH 29.5 MCHC 33.7 RDW 14.0 Plt Count 268 MPV 6.5 L Neut % (Auto) 55.0 Lymph % (Auto) 30.6 [place] % (Auto) 9.0 H Eos % (Auto) 4.7 H Baso % (Auto) 0.7 Neut # (Auto) 3.5 Lymph # (Auto) 1.9 [place] # (Auto) 0.6 Eos # (Auto) 0.3 Baso # (Auto) 0.0 WBC Differential . Differential Comment Auto diff final Sodium 140 Potassium 3.6 Chloride 111 H Carbon Dioxide 23.1 Anion Gap 6 BUN 9 Creatinine 0.78 Estimated GFR 78 L Random Glucose 69 L Calcium 8.4 L Total Bilirubin 0.1 L AST 30 ALT 27 Alkaline Phosphatase 77 Total Protein 6.9 Albumin 2.7 L - Impressions ITS Impressions Abdomen/Pelvis CT 03/20/18 00:00 CONCLUSION: 1. 1.4 cm nodule peripherally in the left lower lobe is concerning for metastatic disease. CT scan of the chest shows multiple bilateral pulmonary nodules. 2. Left periumbilical ostomy without bowel obstruction. 3. Stable presacral soft tissue thickening. This may represent post radiation changes. Chest X-Ray 03/20/18 10:28 CONCLUSION: Nodular densities overlying the left chest. Recommend CT examination of the chest for definitive evaluation. Head CT 03/20/18 10:28 CONCLUSION: Negative CT Head non contrast. . Chest CT 03/20/18 11:35 CONCLUSION: 1. CT examination confirms findings on chest radiograph with multiple large well-defined solid bilateral pulmonary nodules measuring up to 2 cm, as above. Overall findings are consistent with metastatic disease in this patient with history of cervical cancer. 2. Mediastinal, left paratracheal and bilateral supraclavicular adenopathy, as above. These nodes demonstrate punctate calcifications. Differential considerations include treated metastatic disease vs granulomatous disease. 3. ETT is in good position. NGT terminates at the GE junction and should be advanced. 4. Punctate nonobstructing right renal calyceal calculus. Head MRI 03/21/18 00:00 CONCLUSION: 1. There are no findings to indicate metastatic disease. No enhancing lesion is seen. 2. There are a few nonspecific areas of periventricular and subcortical white matter signal change. Discharge Plan - Discharge Disposition Patient Disposition: 01 Discharge Home - Discharge Condition Condition: Good - Discharge Order Discharge Orders: Discharge Order (Routine); Ordered 03/26/18 Ordered By: Leonardo Peacock - Discharge Details Anticipated Discharge Date: 03/26/18 Discharge Comment: DC TO HOME - Physicians Team Primary Care Provider: UNKNOWN, Attending Provider: Leonardo Peacock Other Providers: Candy Stone MD ; Edwardo Moreno MD
== END 2018-03-26 14:35 | disposition home or self-care (01) ==
LOC: NEPC 10:24 → NEDA 11:49 → N03 13:33
PROVIDERS: ADMIT Hospitalist; ATTEND Hospitalist